=== PATIENT | female | born 1940 | race Caucasian/White ===

== ENCOUNTER 2023-10-23 12:57 | Emergency (ER) | payer MEDICARE, OTHER, SELFPAY ==
[2023-10-23 13:05] VITALS: BP 115/52; PULSE 71; RESP 18; TEMP 36.5; O2SAT 97; BMI 18.8
--- NOTE | 2023-10-23 14:31 | ED_ITS ---
HPI - General Adult General Chief complaint: Altered Mental Status Stated complaint: UTI Time Seen by Provider: 10/23/23 14:20 Source: family Mode of arrival: walk-in Limitations: no limitations History of Present Illness HPI narrative: 83-year-old female presents for possible UTI. She has dementia but was a bit more confused than typical and her daughter was concerned about a UTI. The patient is not able to give any history, she has dementia. Symptoms started within the last day but she was also started on Seroquel 2 days ago. No fever or unusual back pain. No vomiting. Related Data Allergies Allergy/AdvReac Type Severity Reaction Status Date / Time No Known Drug Allergies Allergy Verified 10/23/23 13:05 Review of Systems ROS Narrative Not obtainable, dementia PFSH PFSH Social History Smoking status: Never smoker Exam Narrative Exam Narrative: Nurses note and vital signs reviewed and patient is not hypoxic. General: The patient appears well and in no apparent distress. Patient is resting comfortably on cart. Skin: Warm, dry, no pallor noted. There is no rash noted. Head: Normocephalic, atraumatic Eye: Normal conjunctiva, no drainage Ears, Nose, Mouth, and Throat: oral mucosa is moist. Nares patent. Cardiovascular: Regular Rate and Rhythm Respiratory: Patient is in no distress, no accessory muscle use, lungs are clear to auscultation, no wheezing, rales or rhonchi Back: non-tender, no CVA tenderness bilaterally to percussion. GI: Soft and nontender Musculoskeletal: The patient has no evidence of calf tenderness, no pitting edema, symmetrical pulses noted bilaterally Neurological: Awake and alert Psychiatric: Cooperative Constitutional Vital Signs, click to edit/add: Last Vital Signs Temp 97.7 F 10/23/23 13:05 Pulse 71 10/23/23 13:05 Resp 18 10/23/23 13:05 BP 115/52 10/23/23 13:05 Pulse Ox 97 10/23/23 13:05 O2 Del Method Room Air 10/23/23 13:05 Course Vital Signs Vital signs: Vital Signs Temperature 97.7 F 10/23/23 13:05 Pulse Rate 71 10/23/23 13:05 Respiratory Rate 18 10/23/23 13:05 Blood Pressure 115/52 10/23/23 13:05 Pulse Oximetry 97 10/23/23 13:05 Oxygen Delivery Method Room Air 10/23/23 13:05 Temperature 97.7 F 10/23/23 13:05 Pulse Rate 71 10/23/23 13:05 Respiratory Rate 18 10/23/23 13:05 Blood Pressure 115/52 10/23/23 13:05 Pulse Oximetry 97 10/23/23 13:05 Oxygen Delivery Method Room Air 10/23/23 13:05 Medical Decision Making MDM Narrative Medical decision making narrative: She does not have a urinary tract infection. The rest of her workup including chest x-ray and blood work is negative as well. The possibility that this is a side effect of the new medication for her, Seroquel, was discussed. She does not require admission of the hospital but they will follow-up in PCPs office if symptoms persist. Treatment diagnosis and follow-up were discussed with the patient and her daughter Differential Diagnosis Differential Diagnosis: UTI, pneumonia, medication side effect Lab Data Lab results reviewed: Yes I reviewed the patient's lab results Labs: Lab Results 10/23/23 10/23/23 Range/Units 14:32 15:25 WBC 6.2 (4.0-11.0) 10^3/uL RBC 4.36 (4.20-5.40) 10^6/uL Hgb 13.6 (12.0-16.0) g/dL Hct 41.5 (36.0-48.0) % MCV 95.2 (81.0-99.0) fL MCH 31.2 (26.7-34.0) pg MCHC 32.8 (29.9-35.2) g/dL RDW 13.1 (11.0-15.0) % Plt Count 238 (150-450) 10^3/uL MPV 9.3 L (9.5-13.5) fL Neut % (Auto) 64.3 (43.0-75.0) % Lymph % (Auto) 20.0 L (20.5-60.0) % [place] % (Auto) 10.6 (1.7-12.0) % Eos % (Auto) 3.9 (0.9-7.0) % Baso % (Auto) 1.0 (0.2-2.0) % Neut # (Auto) 4.0 (1.4-6.5) 10^3/uL Lymph # (Auto) 1.2 (1.2-3.8) 10^3/uL [place] # (Auto) 0.7 (0.3-0.8) 10^3/uL Eos # (Auto) 0.2 (0.0-0.7) 10^3/uL Baso # (Auto) 0.1 (0.0-0.1) 10^3/uL Abs Immat Gran (auto) 0.01 (0.00-0.03) 10^3/uL Imm/Tot Granulo (auto) 0.2 (0.0-0.5) % Sodium 140 (136-145) mmol/L Potassium 4.7 (3.5-5.1) mmol/L Chloride 103 (98-107) mmol/L Carbon Dioxide 33.6 H (21.0-32.0) mmol/L Anion Gap 8.1 BUN 16.0 (7.0-18.0) mg/dL Creatinine 1.24 H (0.55-1.02) mg/dL Est GFR ( Amer) 50 L (>=60) Est GFR (Non-Af Amer) 42 L (>=60) BUN/Creatinine Ratio 12.9 Glucose 82 (74-106) mg/dL Calcium 9.3 (8.5-10.1) mg/dL Urine Color Lt. yellow (YELLOW) Urine Clarity Clear (CLEAR) Urine pH 7.0 (5.0-9.0) Ur Specific [place] 1.015 (1.005-1.025) Urine Protein Negative (NEG/TRACE) mg/dL Urine Glucose (UA) Negative (NEGATIVE) mg/dL Urine Ketones Negative (NEGATIVE) mg/dL Urine Occult Blood Negative (NEGATIVE) Urine Nitrite Negative (NEGATIVE) Urine Bilirubin Negative (NEGATIVE) Urine Urobilinogen 0.2 (0.2-1.0) EU/dL Ur Leukocyte Esterase Trace A (NEGATIVE) Urine RBC 0-2 (0-2) #/HPF Urine WBC 2-5 A (NONE SEEN) #/HPF Ur Squamous Epith Cells Rare (NONE/RARE) #/LPF Urine Crystals None seen (None Seen) #/HPF Urine Bacteria None seen (NONE SEEN) #/HPF Urine Casts None seen (NONE SEEN) #/LPF Urine Mucus None seen (NONE SEEN) Ur Culture Indicated? No Imaging Data Chest x-ray: Radiologist's impression: ITS Impressions Chest X-Ray 10/23/23 15:15 IMPRESSION: No acute cardiopulmonary process. Electronically authenticated by: JHONATAN ESPINO Date: 10/23/2023 15:57 Discharge Plan Discharge Chief Complaint: Altered Mental Status Clinical Impression: Confusion Patient Disposition: Home, Self-Care Time of Disposition Decision: 16:07 Condition: Good Mode of Transportation: Private Vehicle Instructions: Altered Mental Status (ED) Stand Alone Forms: Portal Instructions Referrals: CHASTITY RODRIGUEZ [Primary Care Provider] - 1 week
[2023-10-23 14:38] LABS: Bilirubin Urine NEGATIVE (NEGATIVE); Blood Urine NEGATIVE (NEGATIVE); Clarity Urine CLEAR (CLEAR); Color Urine LT. YELLOW (YELLOW); Glucose Urine UA NEGATIVE (NEGATIVE); Ketones Urine NEGATIVE (NEGATIVE); Leukocyte Esterase Urine TRACE (NEGATIVE); Nitrite Urine NEGATIVE (NEGATIVE); Protein Urine NEGATIVE (NEG/TRACE); Specific Gravity Urine 1.015 (1.005-1.025); Urobilinogen Urine 0.2 EU/dL (0.2-1.0)
[2023-10-23 14:40] LABS: Urine Microscopic Indicated YES
[2023-10-23 15:01] LABS: Bacteria Urine NONE SEEN #/HPF (NONE SEEN); Crystals Seen? None Seen #/HPF (None Seen); Mucus Urine NONE SEEN (NONE SEEN); RBC Urine 0-2 #/HPF (0-2); Squamous Epithelial Cell Urine RARE #/LPF (NONE/RARE)
[2023-10-23 15:02] LABS: Cast Seen? NONE SEEN #/LPF (NONE SEEN); Urine Culture Indicated NO
--- NOTE | 2023-10-23 15:15 | XR_ITS ---
The [address] [address] Patient Name: SAM TOBAR MRN: [id number] date: 1940 Sex: F Assigned Patient Location: ER Current Patient Location: ER Accession/Order Number: [id number] Exam Date: 10/23/2023 15:20 Report Date: 10/23/2023 15:57 At the request of: DERRICK WELLS Procedure: XR chest 1V EXAM: XR chest 1V INDICATION: Increased confusion. COMPARISON: Chest radiograph 06/11/2021. TECHNIQUE: Single frontal view of the chest FINDINGS: Normal cardiomediastinal contours. No focal consolidation. Stable left lung base calcified granuloma. No pleural effusion or pneumothorax. No acute osseous abnormality. XR/XR chest 1V IMPRESSION: No acute cardiopulmonary process. Electronically authenticated by: JHONATAN ESPINO Date: 10/23/2023 15:57
[2023-10-23 15:31] LABS: Basophils Absolute Auto 0.1 10^3/uL (0.0-0.1); Eosinophils Absolute Auto 0.2 10^3/uL (0.0-0.7); Eosinophils Percent Auto 3.9 % (0.9-7.0); Hematocrit 41.5 % (36.0-48.0); Hemoglobin 13.6 g/dL (12.0-16.0); Immature Granulocytes Abs Auto 0.01 10^3/uL (0.00-0.03); Immature Granulocytes Pct Auto 0.2 % (0.0-0.5); Lymphocytes Absolute Auto 1.2 10^3/uL (1.2-3.8); Mean Corpuscular HGB Conc 32.8 g/dL (29.9-35.2); Mean Corpuscular Hemoglobin 31.2 pg (26.7-34.0); Mean Corpuscular Volume 95.2 fL (81.0-99.0); Mean Platelet Volume 9.3 fL (9.5-13.5); Monocytes Absolute Auto 0.7 10^3/uL (0.3-0.8); Monocytes Percent Auto 10.6 % (1.7-12.0); Neutrophils Percent Auto 64.3 % (43.0-75.0); Platelet Count 238 10^3/uL (150-450); Red Blood Count 4.36 10^6/uL (4.20-5.40); Red Cell Distribution Width 13.1 % (11.0-15.0); White Blood Count 6.2 10^3/uL (4.0-11.0)
[2023-10-23 15:39] LABS: Anion Gap 8.1; BUN Creatinine Ratio 12.9; Calcium 9.3 mg/dL (8.5-10.1); Carbon Dioxide 33.6 mmol/L (21.0-32.0); Chloride 103 mmol/L (98-107); Estimated GFR (African America 50 (>=60); Estimated GFR (Non-African Ame 42 (>=60); Glucose 82 mg/dL (74-106); Potassium 4.7 mmol/L (3.5-5.1); Sodium 140 mmol/L (136-145)
== END 2023-10-23 16:15 | disposition home or self-care (01) ==
PROVIDERS: Emergency Provider Emergency Medicine; PCP Family Medicine
DX: R41.0 Disorientation, unspecified (principal); F03.90 Unspecified dementia, unspecified severity, without behavioral disturbance, psychotic disturbance, mood disturbance, and anxiety; Z79.899 Other long term (current) drug therapy
CPT/HCPCS: 36415; 71045; 80048; 81001; 85025; 99284

== ENCOUNTER 2023-10-31 17:10 | Inpatient (IN) | payer MEDICARE, OTHER, SELFPAY ==
[2023-10-31] VITALS (10 sets, daily range): BP systolic 129–157; BP diastolic 67–72; PULSE 85–90; RESP 16–26; TEMP 36.9–37.1; O2SAT 93–97; BMI 18.8; BMI 19.1
--- NOTE | 2023-10-31 17:20 | ECG_ITS ---
[facility] Test Date: 2023-10-31 Pat Name: SAM TOBAR Department: Room: [facility] Gender: Female [employer] Salesperson: : 1940 Requested By: [id number] Order Number: [id number] Reading MD: TATA OSORIO Measurements Intervals [place] Rate: 86 P: 79 TX: 156 QRS: 69 QRSD: 72 T: 66 QT: 352 QTc: 395 Interpretive Statements 1100 Sinus rhythm 4068 Nonspecific [place] abnormality 9130 borderline ECG Compared to ECG 06/11/2021 21:11:00 No significant changes Electronically Signed On 11-01-2023 6:42:58 EST by TATA OSORIO
--- OUTSIDE RECORDS SUMMARY | 2023-10-31 17:20 | XMS_ITS | CCD ---
Author Name Unknown Address [address] [facility] [address] [place] [id number] Organization [facility] Care Team Providers Care Cashier Assistant Name Role Phone JENNIFER, DR HAYWOOD Admitting Unavailable JENNIFER, DR HAYWOOD Consulting Unavailable JENNIFER, DR HAYWOOD Attending Unavailable SABAS, DR ALMA ROSA Horta Primary Care Unavailable SABAS, DR ALMA ROSA Horta Consulting Unavailable SABAS, DR ALMA ROSA Horta Attending Unavailable SABAS, DR ALMA ROSA Horta Admitting Unavailable SABAS, DR ALMA ROSA Horta Primary Care Unavailable JUDY PILLAI Attending Unavailable JUDY PILLAI Attending Unavailable CHASTITY RODRIGUEZ Attending Unavailable Allergies Allergy Classification Reported Allergen(s) Allergy Type Date of Onset Reaction(s) Facility (1 source) donepezil Drug Allergy [facility] (1 source) Penicillins Drug allergy (disorder) 06-09-2013 [facility] (1 source) Sulfonamides (Antibiotic) Drug allergy (disorder) 06-09-2013 [facility] Problems Active Problems Problem Classification Problem Date Documented Date Episodic/Chronic Disorders of lipid metabolism (1 source) Pure hypercholesterolemia, unspecified; Translations: [PURE HYPERCHOLESTEROLEMIA UNSPEC] Onset: 3 Chronic Nutritional deficiencies (6 sources) Vitamin D deficiency, unspecified; Translations: [Moderate protein-calorie malnutrition] Onset: 2 Chronic Thyroid disorders (4 sources) Hypothyroidism, unspecified; Translations: [HYPOTHYROIDISM UNSPECIFIED] Onset: 3 Chronic Past or Other Problems Problem Classification Problem Date Documented Da te Episodic/Chronic Pancreatic disorders (not diabetes) (1 source) Acute pancreatitis without necrosis or infection, unspecified; Translations: [ACUTE PANCREATITIS WO NECRS/INF UNS] Onset: 11-24-2021 Episodic Results Test Name Value Interpretation Reference Range Facil ity CBC AUTO DIFFon 09-29-2022 BASO # 0.0 103/ul Normal 0.0-0.1 [facility] Comment on above: Performed By: #### C BC #### [facility] [address] [place] [address] Dr. Naheed Hernandes Basophils/100 WBC (Bld) 0.7 % Normal 0.2-2.0 [facility] Comment on above: Performed By: #### C BC #### [facility] [address] [place] [address] Dr. Naheed Hernandes EO # 0.1 103/ul Normal 0.0-0.7 [facility] Comment on above: Performed By: #### C BC #### [facility] [address] [place] [address] Dr. Naheed Hernandes Eosinophils/100 WBC (Bld) 2.2 % Normal 0.9-7.0 [facility] Comment on above: Performed By: #### C BC #### [facility] [address] [place] [address] Dr. Naheed Hernandes Erythrocyte distribution width (RBC) [Ratio] 13.2 % Normal 11.0-15.0 [facility] Comment on above: Performed By: #### C BC #### [facility] [address] [place] [address] Dr. Naheed Hernandes Hematocrit (Bld) [Volume fraction] 43.2 % Normal 36.0-48.0 [facility] Comment on above: Performed By: #### C BC #### [facility] [address] [place] [address] Dr. Naheed Hernandes Hemoglobin (Bld) [Mass/Vol] 14.0 g/dL Normal 12.0-16.0 [facility] Comment on above: Performed By: #### C BC #### [facility] [address] [place] [address] Dr. Naheed Hernandes IG # 0.01 10e3/ul Normal 0.00-0.03 [facility] Comment on above: Performed By: #### C BC #### [facility] [address] [place] [address] Dr. Naheed Hernandes IG % 0.2 % Normal 0.0-0.5 [facility] Comment on above: Performed By: #### C BC #### [facility] [address] [place] [address] Dr. Naheed Hernandes LYMPH # 1.0 103/ul Critically low 1.2-3.8 [facility] Comment on above: Performed By: #### C BC #### [facility] [address] [place] [address] Dr. Naheed Hernandes Lymphocytes/100 WBC (Bld) 17.4 % Critically low 20.5-60.0 [facility] Comment on above: Performed By: #### C BC #### [facility] [address] [place] [address] Dr. Naheed Hernandes MANUAL DIFF REQ NO Normal [facility] Comment on above: Performed By: #### C BC #### [facility] [address] [place] [address] Dr. Naheed Hernandes MCH (RBC) [Entitic mass] 30.0 pg Normal 26.7-34.0 [facility] Comment on above: Performed By: #### C BC #### [facility] [address] [place] [address] Dr. Naheed Hernandes MCHC (RBC) [Mass/Vol] 32.4 g/dL Normal 29.9-35.2 [facility] Comment on above: Performed By: #### C BC #### [facility] [address] [place] [address] Dr. Naheed Hernandes MCV (RBC) [Entitic vol] 92.7 fL Normal 81.0-99.0 [facility] Comment on above: Performed By: #### C BC #### [facility] [address] [place] [address] Dr. Naheed Hernandes MONO # 0.5 103/ul Normal 0.3-0.8 [facility] Comment on above: Performed By: #### C BC #### [facility] [address] [place] [address] Dr. Naheed Hernandes Monocytes/100 WBC (Bld) 8.5 % Normal 1.7-12.0 [facility] Comment on above: Performed By: #### C BC #### [facility] [address] [place] [address] Dr. Naheed Hernandes NEUT # 4.2 103/ul Normal 1.4-6.5 [facility] Comment on above: Performed By: #### C BC #### [facility] [address] [place] [address] Dr. Naheed Hernandes Neutrophils/100 WBC (Bld) 71.0 % Normal 43.0-75.0 [facility] Comment on above: Performed By: #### C BC #### [facility] [address] [place] [address] Dr. Naheed Hernandes Platelet mean volume (Bld) [Entitic vol] 9.3 fL Critically low 9.5-13.5 [facility] Comment on above: Performed By: #### C BC #### [facility] [address] [place] [address] Dr. Naheed Hernandes PLT 242 103/ul Normal 150-450 [facility] Comment on above: Performed By: #### C BC #### [facility] [address] [place] [address] Dr. Naheed Hernandes RBC 4.66 106/ul Normal 4.20-5.40 [facility] Comment on above: Performed By: #### C BC #### [facility] [address] [place] [address] Dr. Naheed Hernandes WBC 5.9 103/ul Normal 4.0-11.0 [facility] Comment on above: Performed By: #### C BC #### [facility] [address] [place] [address] Dr. Naheed Hernandes FREE T3on 09-29-2022 FREE T3 2.15 pg/mlL Critically low 2.18-3.[address] [facility] Comment on above: Performed By: #### L IPID, TSH, FT3, CMP #### [facility] [address] [place] [address] Dr. Naheed Hernandes FREE T4on 09-29-2022 Free T4 [Mass/Vol] 1.28 ng/dL Normal 0.76-1.46 [facility] Comment on above: Performed By: #### F T4, VITAD #### [facility] [address] [place] [address] Dr. Naheed Hernandes LIPID PROFILEon 09-29-2022 CHOL-HDL RATIO NORM SEE BELOW Normal [facility] Comment on above: Result Comment: 3.3 - 4.4 LOW RISK 4.4 - 7.1 AVERAGE RISK 7.1 - 11.0 MODERATE RISK >11.0 HIGH RISK Performed By: #### L IPID, TSH, FT3, CMP #### [facility] [address] [place] [address] Dr. Naheed Hernandes Cholesterol [Mass/Vol] 186 mg/dL Normal <=200 [facility] Comment on above: Performed By: #### L IPID, TSH, FT3, CMP #### [facility] [address] [place] [address] Dr. Naheed Hernandes Cholesterol in HDL [Mass/Vol] 70 mg/dL Critically high 40-60 [facility] Comment on above: Performed By: #### L IPID, TSH, FT3, CMP #### [facility] [address] [place] [address] Dr. Naheed Hernandes Cholesterol in LDL [Mass/Vol] 98.8 mg/dL Normal [facility] Comment on above: Performed By: #### L IPID, TSH, FT3, CMP #### [facility] [address] [place] [address] Dr. Naheed Hernandes Cholesterol.total/ Cholesterol in HDL [Mass ratio] 2.7 {ratio} Normal [facility] Comment on above: Performed By: #### L IPID, TSH, FT3, CMP #### [facility] [address] [place] [address] Dr. Naheed Hernandes HDL NORMAL > or = 60 mg/dl - LO W CARDIOVASCULAR RISK <40 mg/dl - HIGH CARDIOVASCULAR RISK Normal [facility] Comment on above: Performed By: #### L IPID, TSH, FT3, CMP #### [facility] [address] [place] [address] Dr. Naheed Hernandes LDL CALC NORMAL SEE BELOW Normal [facility] Comment on above: Result Comment: <100 mg/dl OPTIMAL 100 - 129 mg/dl NEAR OR ABOVE OPTIMAL 130 - 159 mg/dl BORDERLINE HIGH 160 - 189 mg/dl HIGH >190 mg/dl VERY HIGH Performed By: #### L IPID, TSH, FT3, CMP #### [facility] [address] [address] [address] Naheed Hernandes Triglyceride [Mass/Vol] 86 mg/dL Normal <=150 [facility] Comment on above: Performed By: #### L IPID, TSH, FT3, CMP #### [facility] [address] [address] [address] Naheed Hernandes VLDL CALC 17.2 mg/dL Normal [facility] Comment on above: Performed By: #### L IPID, TSH, FT3, CMP #### [facility] [address] [address] [address] Naheed Hernandes PROF 14(COMP METB)on 023 Albumin [Mass/Vol] 3.7 g/dL Normal 3.4-5.0 [facility] Comment on above: Performed By: #### L IPID, TSH, FT3, CMP #### [facility] [address] [address] [address] Naheed Hernandes Albumin/Globulin [Mass ratio] 1.1 {ratio} Normal [facility] Comment on above: Performed By: #### L IPID, TSH, FT3, CMP #### [facility] [address] [address] [address] Naheed Hernandes ALP [Catalytic activity/Vol] 90 U/L Normal 46-116 [facility] Comment on above: Performed By: #### L IPID, TSH, FT3, CMP #### [facility] [address] [address] [address] Naheed Hernandes ALT [Catalytic activity/Vol] 14 U/L Normal 14-59 [facility] Comment on above: Performed By: #### L IPID, TSH, FT3, CMP #### [facility] [address] [address] [address] Naheed Hernandes Anion gap [Moles/Vol] 7.6 mmol/L Normal [facility] Comment on above: Performed By: #### L IPID, TSH, FT3, CMP #### [facility] [address] [place] [address] Dr. Naheed Hernandes AST [Catalytic activity/Vol] 25 U/L Normal 15-37 [facility] Comment on above: Performed By: #### L IPID, TSH, FT3, CMP #### [facility] [address] [place] [address] Dr. Naheed Hernandes Bilirubin [Mass/Vol] 1.4 mg/dL Critically high 0.2-1.0 [facility] Comment on above: Performed By: #### L IPID, TSH, FT3, CMP #### [facility] [address] [place] [address] Dr. Naheed Hernandes Calcium [Mass/Vol] 9.0 mg/dL Normal 8.5-10.1 [facility] Comment on above: Performed By: #### L IPID, TSH, FT3, CMP #### [facility] [address] [place] [address] Dr. Naheed Hernandes Chloride [Moles/Vol] 103 mmol/L Normal 98-107 [facility] Comment on above: Performed By: #### L IPID, TSH, FT3, CMP #### [facility] [address] [place] [address] Dr. Naheed Hernandes CO2 [Moles/Vol] 32.2 mmol/L Critically high 21.0-32.0 [facility] Comment on above: Performed By: #### L IPID, TSH, FT3, CMP #### [facility] [address] [place] [address] Dr. Naheed Hernandes Creatinine [Mass/Vol] 1.05 mg/dL Critically high 0.55-1.02 [facility] Comment on above: Performed By: #### L IPID, TSH, FT3, CMP #### [facility] [address] [place] [address] Dr. Naheed Hernandes EGFR-AF TURKISH >60 Normal >=60 [facility] Comment on above: Performed By: #### L IPID, TSH, FT3, CMP #### [facility] [address] [place] [address] Dr. Naheed Hernandes EGFR-NON AF TURKISH 50 mL/min/1.73m2 Critically low >=60 [facility] Comment on above: Performed By: #### L IPID, TSH, FT3, CMP #### [facility] [address] [address] [address] Naheed Hernandes Globulin (S) [Mass/Vol] 3.4 g/dL Normal [facility] Comment on above: Performed By: #### L IPID, TSH, FT3, CMP #### [facility] [address] [place] [address] Dr. Naheed Hernandes Glucose [Mass/Vol] 85 mg/dL Normal 74-106 [facility] Comment on above: Performed By: #### L IPID, TSH, FT3, CMP #### [facility] [address] [place] [address] Dr. Naheed Hernandes Potassium [Moles/Vol] 3.8 mmol/L Normal 3.5-5.1 [facility] Comment on above: Performed By: #### L IPID, TSH, FT3, CMP #### [facility] [address] [place] [address] Dr. Naheed Hernandes Protein [Mass/Vol] 7.1 g/dL Normal 6.4-8.2 [facility] Comment on above: Performed By: #### L IPID, TSH, FT3, CMP #### [facility] [address] [place] [address] Dr. Naheed Hernandes Sodium [Moles/Vol] 139 mmol/L Normal 136-145 [facility] Comment on above: Performed By: #### L IPID, TSH, FT3, CMP #### [facility] [address] [place] [address] Dr. Naheed Hernandes Urea nitrogen [Mass/Vol] 16.0 mg/dL Normal 7.0-18.0 [facility] Comment on above: Performed By: #### L IPID, TSH, FT3, CMP #### [facility] [address] [place] [address] Dr. Naheed Hernandes Urea nitrogen/Creatinin e [Mass ratio] 15.2 mg/mg Normal [facility] Comment on above: Performed By: #### L IPID, TSH, FT3, CMP #### [facility] [address] [place] [address] Dr. Naheed Hernandes TSHon 09-29-2022 TSH 1.283 uIU/mL Normal 0.358-3.740 [facility] Comment on above: Performed By: #### L IPID, TSH, FT3, CMP #### [facility] [address] [place] [address] Dr. Naheed Hernandes VITAMIN D 25 OHon 09-29-2022 VIT D 25-OH 78.0 ng/mL Normal [facility] Comment on above: Performed By: #### F T4, VITAD #### [facility] [address] [place] [address] Dr. Naheed Hernandes VIT D RANGES SEE BELOW Normal [facility] Comment on above: Result Comment: <20 ng/mL Vit D deficient 20 - <30 ng/mL Vit D insufficient 30 - 100 ng/mL Vit D sufficient >100 ng/mL Potential Toxicity Performed By: #### F T4, VITAD #### [facility] [address] [place] [address] Dr. Naheed Hernandes CBC AUTO DIFFon 11-20-2021 BASO # 0.0 103/ul Normal 0.0-0.1 [facility] Comment on above: Performed By: #### C BC #### [facility] [address] [place] [address] Dr. Naheed Hernandes Basophils/100 WBC (Bld) 0.6 % Normal 0.2-2.0 [facility] Comment on above: Performed By: #### C BC #### [facility] [address] [place] [address] Dr. Naheed Hernandes EO # 0.1 103/ul Normal 0.0-0.7 [facility] Comment on above: Performed By: #### C BC #### [facility] [address] [place] [address] Dr. Naheed Hernandes Eosinophils/100 WBC (Bld) 1.9 % Normal 0.9-7.0 [facility] Comment on above: Performed By: #### C BC #### [facility] [address] [place] [address] Dr. Naheed Hernandes Erythrocyte distribution width (RBC) [Ratio] 13.3 % Normal 11.0-15.0 [facility] Comment on above: Performed By: #### C BC #### [facility] [address] [place] [address] Dr. Naheed Hernandes Hematocrit (Bld) [Volume fraction] 43.7 % Normal 36.0-48.0 [facility] Comment on above: Performed By: #### C BC #### [facility] [address] [place] [address] Dr. Naheed Hernandes Hemoglobin (Bld) [Mass/Vol] 14.2 g/dL Normal 12.0-16.0 [facility] Comment on above: Performed By: #### C BC #### [facility] [address] [place] [address] Dr. Naheed Hernandes IG # 0.01 10e3/ul Normal 0.00-0.03 [facility] Comment on above: Performed By: #### C BC #### [facility] [address] [place] [address] Dr. Naheed Hernandes IG % 0.1 % Normal 0.0-0.5 [facility] Comment on above: Performed By: #### C BC #### [facility] [address] [place] [address] Dr. Naheed Hernandes LYMPH # 1.6 103/ul Normal 1.2-3.8 [facility] Comment on above: Performed By: #### C BC #### [facility] [address] [place] [address] Dr. Naheed Hernandes Lymphocytes/100 WBC (Bld) 23.1 % Normal 20.5-60.0 [facility] Comment on above: Performed By: #### C BC #### [facility] [address] [place] [address] Dr. Naheed Hernandes MANUAL DIFF REQ NO Normal [facility] Comment on above: Performed By: #### C BC #### [facility] [address] [place] [address] Dr. Naheed Hernandes MCH (RBC) [Entitic mass] 30.4 pg Normal 26.7-34.0 [facility] Comment on above: Performed By: #### C BC #### [facility] [address] [place] [address] Dr. Naheed Hernandes MCHC (RBC) [Mass/Vol] 32.5 g/dL Normal 29.9-35.2 [facility] Comment on above: Performed By: #### C BC #### [facility] [address] [place] [address] Dr. Naheed Hernandes MCV (RBC) [Entitic vol] 93.6 fL Normal 81.0-99.0 [facility] Comment on above: Performed By: #### C BC #### [facility] [address] [place] [address] Dr. Naheed Hernandes MONO # 0.7 103/ul Normal 0.3-0.8 [facility] Comment on above: Performed By: #### C BC #### [facility] [address] [place] [address] Dr. Naheed Hernandes Monocytes/100 WBC (Bld) 10.2 % Normal 1.7-12.0 [facility] Comment on above: Performed By: #### C BC #### [facility] [address] [place] [address] Dr. Naheed Hernandes NEUT # 4.4 103/ul Normal 1.4-6.5 [facility] Comment on above: Performed By: #### C BC #### [facility] [address] [place] [address] Dr. Naheed Hernandes Neutrophils/100 WBC (Bld) 64.1 % Normal 43.0-75.0 [facility] Comment on above: Performed By: #### C BC #### [facility] [address] [place] [address] Dr. Naheed Hernandes Platelet mean volume (Bld) [Entitic vol] 9.2 fL Critically low 9.5-13.5 [facility] Comment on above: Performed By: #### C BC #### [facility] [address] [place] [address] Dr. Naheed Hernandes PLT 243 103/ul Normal 150-450 [facility] Comment on above: Performed By: #### C BC #### [facility] [address] [place] [address] Dr. Naheed Hernandes RBC 4.67 106/ul Normal 4.20-5.40 [facility] Comment on above: Performed By: #### C BC #### [facility] [address] [place] [address] Dr. Naheed Hernandes WBC 6.9 103/ul Normal 4.0-11.0 [facility] Comment on above: Performed By: #### C BC #### [facility] [address] [place] [address] Dr. Naheed Hernandes LIPASEon 11-20-2021 Lipase [Catalytic activity/Vol] 138.0 U/L Normal 23.0-300.0 [facility] Comment on above: Performed By: #### L IPA, CMP #### [facility] [address] [place] [address] Dr. Naheed Hernandes PROF 14(COMP METB)on 022 Albumin [Mass/Vol] 3.9 g/dL Normal 3.5-5.0 [facility] Comment on above: Performed By: #### L IPA, CMP #### [facility] [address] [place] [address] Dr. Naheed Hernandes Albumin/Globulin [Mass ratio] 1.1 {ratio} Normal [facility] Comment on above: Performed By: #### L IPA, CMP #### [facility] [address] [place] [address] Dr. Naheed Hernandes ALP [Catalytic activity/Vol] 88 U/L Normal 38-126 [facility] Comment on above: Performed By: #### L IPA, CMP #### [facility] [address] [address] [address] Naheed Hernandes ALT [Catalytic activity/Vol] 13 U/L Normal 9-52 [facility] Comment on above: Performed By: #### L IPA, CMP #### [facility] [address] [address] [address] Naheed Hernandes Anion gap [Moles/Vol] 9.1 mmol/L Normal [facility] Comment on above: Performed By: #### L IPA, CMP #### [facility] [address] [address] [address] Naheed Hernandes AST [Catalytic activity/Vol] 20 U/L Normal 14-36 [facility] Comment on above: Performed By: #### L IPA, CMP #### [facility] [address] [address] [address] Naheed Hernandes Bilirubin [Mass/Vol] 1.0 mg/dL Normal 0.2-1.3 [facility] Comment on above: Performed By: #### L IPA, CMP #### [facility] [address] [address] [address] Naheed Hernandes Calcium [Mass/Vol] 8.7 mg/dL Normal 8.4-10.2 [facility] Comment on above: Performed By: #### L IPA, CMP #### [facility] [address] [address] [address] Naheed Hernandes Chloride [Moles/Vol] 103 mmol/L Normal 98-107 [facility] Comment on above: Performed By: #### L IPA, CMP #### [facility] [address] [address] [address] Naheed Hernandes CO2 [Moles/Vol] 32.6 mmol/L Critically high 22.0-30.0 [facility] Comment on above: Performed By: #### L IPA, CMP #### [facility] [address] [address] [address] Naheed Hernandes Creatinine [Mass/Vol] 1.34 mg/dL Critically high 0.52-1.04 [facility] Comment on above: Performed By: #### L IPA, CMP #### [facility] [address] [address] [address] Naheed Hernandes EGFR-AF TURKISH 46 mL/min/1.73m2 Critically low >=60 [facility] Comment on above: Performed By: #### L IPA, CMP #### [facility] [address] [address] [address] Naheed Hernandes EGFR-NON AF TURKISH 38 mL/min/1.73m2 Critically low >=60 [facility] Comment on above: Performed By: #### L IPA, CMP #### [facility] [address] [address] [address] Naheed Hernandes Globulin (S) [Mass/Vol] 3.7 g/dL Normal [facility] Comment on above: Performed By: #### L IPA, CMP #### [facility] [address] [address] [address] Naheed Hernandes Glucose [Mass/Vol] 109 mg/dL Critically high 74-106 [facility] Comment on above: Performed By: #### L IPA, CMP #### [facility] [address] [address] [address] Naheed Hernandes Potassium [Moles/Vol] 3.7 mmol/L Normal 3.4-5.0 [facility] Comment on above: Performed By: #### L IPA, CMP #### [facility] [address] [address] [address] Naheed Hernandes Protein [Mass/Vol] 7.6 g/dL Normal 6.1-8.2 [facility] Comment on above: Performed By: #### L IPA, CMP #### [facility] [address] [address] [address] Naheed Hernandes Sodium [Moles/Vol] 141 mmol/L Normal 137-145 [facility] Comment on above: Performed By: #### L IPA, CMP #### [facility] [address] [address] [address] Naheed Hernandes Urea nitrogen [Mass/Vol] 20.0 mg/dL Critically high 7.0-17.0 [facility] Comment on above: Performed By: #### L IPA, CMP #### [facility] [address] [place], [place] [address] Dr. Naheed Hernandes Urea nitrogen/Creatinin e [Mass ratio] 14.9 mg/mg Normal [facility] Comment on above: Performed By: #### L IPA, CMP #### [facility] [address] [place], [place] [address] Dr. [facility] [place] SARS-CoV-2 (COVID-19) RNA ANUP+probe Ql (Unsp spec) Negative Normal Negative [facility] Comment on above: Order Comment: Healt hcare Worker?: N Result Comment: Testing for SARS-CoV-2 by RT-PCR This test was developed and its performance characteristics determined by [employer] and validated at the [facility]. This test has not been FDA cleared or approved. This test has been authorized by FDA under an Emergency Use Authorization (EUA). This test has been validated in accordance with the FDA's Guidance Document (Policy for Diagnostics Testing in Laboratories Certified to Perform High Complexity Testing under CLIA prior to Emergency Use Authorization for Coronavirus Disease-2019 during the Public Health Emergency) issued on December 20, 2019. This test is only authorized for the duration of time the declaration that circumstances exist justifying the authorization of the emergency use of in vitro diagnostic tests for detection of SARS-CoV-2 virus and/or diagnosis of COVID-19 infection under section 564(b)(1) of the Act, 21 U.S.C. 360bbb-3(b)(1), unless the authorization is terminated or revoked sooner. PERFORMED BY: [place] [address] PATHOLOGIST DRILLING CONTRACTOR PETAR ARTEAGA M.D. Performed By: #### C OVID 19 [facility] [place] #### [place] [id number] [facility] Encounters Encounter Date Encounter Type Care Provider Facility Start: 08-22-2023 End: 08-22-2023 ambulatory CHASTITY RODRIGUEZ Not Available Start: 01-21-2023 ambulatory JUDY L FREYA Facility: [facility] [place] Start: 11-26-2022 ambulatory JUDY Lorin FREYA Facility: [facility] [place] Start: 09-29-2022 End: 09-30-[address] ALMA ROSA OBREGON Facility: Start: 11-20-2021 End: 11-21-[address] CHASTITY RODRIGUEZ Facility:[facility] Payers Date Payer Category Payer Medicare [id number] 1957 Medicare [id number] 1957 Unknown [id number] 1940 Unknown [id number] 1940 Unknown [id number] 1940 Unknown [id number] [id number] 1940 Unknown [id number] 2.16.8 [id number] 1940 Unknown [id number] Summary Purpose Family History No Family History Records FoundNo Family History Records FoundNo Family History Records FoundNo Family History Records Found Advance Directives No Advanced Directives Records FoundNo Advanced Directives Records FoundNo Advanced Directives Records FoundNo Advanced Directives Records Found Additional Source Comments INFORMATION SOURCE (unrecogn ized section and content) DATE CREATED AUTHOR 10/13/2021 [facility] DATE CREATED AUTHOR AUTHOR'S ORGANIZ ATION 10/02/2022 [facility] [place] [facility] DATE CREATED AUTHOR AUTHOR'S ORGANIZ ATION 11/27/2022 [facility] DATE CREATED AUTHOR AUTHOR'S ORGANIZ ATION 08/24/2023 [facility] EPIC FOR RECORDS PERTAINING TO PATIENTS WHO ARE OR HAVE BEEN ENROLLED IN A CHEMICAL DEPENDENCY/SUBSTANCEABUSE PROGRAM, SOME INFORMATION MAY BE OMITTED. This clinical summary was aggregated from multiple sources. Caution should be exercised in using it in the provision of clinical care. This summary normalizes information from multiple sources, and as a consequence, information in this document may materially change the coding, format and clinical context of patient data. In addition, data may be omitted in some cases. CLINICAL DECISIONS SHOULD BE BASED ON THE PRIMARY CLINICAL RECORDS. [facility] [employer] [facility]. provides no warranty or guarantee of the accuracy or completeness of information in this document.
--- NOTE | 2023-10-31 17:30 | ED_ITS ---
HPI - Fall General Chief Complaint: Fall Stated Complaint: FALL Time Seen by Provider: 10/31/23 17:15 Source: patient and family Mode of arrival: Wheelchair Limitations: altered mental status and physical limitation History of Present Illness HPI Narrative: 83 year old female presents to the ED with right shoulder and right hip pain. There is concern for an unwitnessed fall today; she lives at home with family. T he patient has hx dementia and is a poor historian. Pt has bruising to her right shoulder area. She does not take an anticoagulant. Pt denies pain to her head, neck, back, chest, abdomen. Denies dizziness, nausea. Rates her pain 8/10 with movement. Related Data Home Medications Medication Instructions Recorded Confirmed levothyroxine 25 mcg tablet 25 mcg PO DAILY 10/31/23 10/31/23 oxybutynin chloride 5 mg 5 mg PO DAILY 10/31/23 10/31/23 tablet,extended release 24 hr oxycodone-acetaminophen 5 mg-325 1 tab PO Q8H 10/31/23 10/31/23 mg tablet paroxetine HCl 10 mg tablet 10 mg PO DAILY 10/31/23 10/31/23 Allergies Allergy/AdvReac Type Severity Reaction Status Date / Time Penicillins AdvReac Mild Verified 10/31/23 17:26 Review of Systems ROS Constitutional Denies: fever or chills Ears, nose, mouth, and throat Denies: neck pain Cardiovascular Denies: chest pain Respiratory Denies: shortness of breath Gastrointestinal Denies: abdominal pain, nausea or vomiting Musculoskeletal Reports: extremity pain; Denies: back pain or neck pain Integumentary/Breast Reports: skin tenderness and changes in skin color; Denies: rash, itching or redness Neurological Denies: headache, numbness in extremities, weakness in extremities or dizziness PFSH PFSH Social History Smoking status: Never smoker Exam Constitutional Vital Signs, click to edit/add: Last Vital Signs Temp 98.5 F 10/31/23 17:27 Pulse 88 10/31/23 19:00 Resp 22 10/31/23 19:00 BP 129/72 10/31/23 18:51 Pulse Ox 95 10/31/23 18:04 O2 Del Method Room Air 10/31/23 17:27 Common normals: no apparent distress and alert General appearance: cooperative HENRI Common normals: normocephalic and head/scalp atraumatic Face and sinus: normal facial exam Nose: external nose normal External ear: external ears normal Mouth: oral and palatal mucosa normal, lip normal and tongue normal Eye Common normals: PERRL, conjunctivae normal and no scleral icterus Neck & C-Spine Common normals: supple General: trachea midline Cervical spine: no cervical spine tenderness and no paracervical muscle tenderness Chest Common normals: palpation of chest normal Chest: symmetrical chest wall rise Respiratory Common normals: normal respiratory effort Effort & inspection: able to speak in complete sentences and symmetric chest movement Cardio Common normals: regular rate and regular rhythm Peripheral pulses: radial pulses present, posterior tibial pulses present and dorsalis pedis pulses present GI Common normals: soft to palpation and non-tender Back & Pelvis Thoracic spine/upper back: normal to inspection; no thoracic spinal tenderness and no paraspinal muscle tenderness Lumbar spine/lower back: normal to inspection; no lumbar spinal tenderness and no paraspinal muscle tenderness Extremity Other: Right hip area tender on palpation. Right leg appears shorter. Decreased ROM to right hip. Bruising to right anterior shoulder area. Decreased ROM to right shoulder due to pain. No obvious deformity. Area is tender on palpation. Denies tenderness to right elbow, knees, ankles. Neuro Sensorium/orientation: awake, alert and other (Pt confused; hx dementia. At baseline per daughter. ) Speech: speech normal Course Vital Signs Vital signs: Vital Signs Temperature 98.5 F 10/31/23 17:27 Pulse Rate 88 10/31/23 17:27 Respiratory Rate 16 10/31/23 17:27 Blood Pressure 157/70 H 10/31/23 17:27 Pulse Oximetry 97 10/31/23 17:27 Oxygen Delivery Method Room Air 10/31/23 17:27 Temperature 98.5 F 10/31/23 17:27 Pulse Rate 88 10/31/23 19:00 Respiratory Rate 22 10/31/23 19:00 Blood Pressure 129/72 10/31/23 18:51 Pulse Oximetry 95 10/31/23 18:04 Oxygen Delivery Method Room Air 10/31/23 17:27 MDM - Fall MDM Narrative Medical decision making narrative: Imaging showed a right femora neck fracture and fractures to the right shoulder. Findings were discussed with the patient and her daughter. A sling was applied to the RUE. The application was checked and was appropriate; the RUE remained NVI. The patient will be admitted for further evaluation and treatment. I spoke with Gerardo Matthews CNP who accepted the patient for admission under Dr. Pickens. Differential Diagnosis Differential diagnosis: Likely dislocation of shoulder region and other (Humerus fracture, hip fracture, head injury, hip contusion, shoulder contusion, fall) Medical Records Attestation: I reviewed the patient's medical records. Lab Data Attestation: I reviewed the patient's lab results. Labs: Lab Results 10/31/23 Range/Units 17:48 WBC 10.5 (4.0-11.0) 10^3/uL RBC 4.14 L (4.20-5.40) 10^6/uL Hgb 12.9 (12.0-16.0) g/dL Hct 38.8 (36.0-48.0) % MCV 93.7 (81.0-99.0) fL MCH 31.2 (26.7-34.0) pg MCHC 33.2 (29.9-35.2) g/dL RDW 13.4 (11.0-15.0) % Plt Count 232 (150-450) 10^3/uL MPV 9.4 L (9.5-13.5) fL Neut % (Auto) 90.3 H (43.0-75.0) % Lymph % (Auto) 3.2 L (20.5-60.0) % Stokes % (Auto) 6.0 (1.7-12.0) % Eos % (Auto) 0.0 L (0.9-7.0) % Baso % (Auto) 0.2 (0.2-2.0) % Neut # (Auto) 9.5 H (1.4-6.5) 10^3/uL Lymph # (Auto) 0.3 L (1.2-3.8) 10^3/uL Stokes # (Auto) 0.6 (0.3-0.8) 10^3/uL Eos # (Auto) 0.0 (0.0-0.7) 10^3/uL Baso # (Auto) 0.0 (0.0-0.1) 10^3/uL Abs Immat Gran (auto) 0.03 (0.00-0.03) 10^3/uL Imm/Tot Granulo (auto) 0.3 (0.0-0.5) % PT 10.5 (9.0-11.6) sec INR 0.99 APTT 28.9 (22.3-36.2) sec Sodium 141 (136-145) mmol/L Potassium 3.8 (3.5-5.1) mmol/L Chloride 103 (98-107) mmol/L Carbon Dioxide 27.4 (21.0-32.0) mmol/L Anion Gap 14.4 BUN 17.0 (7.0-18.0) mg/dL Creatinine 1.22 H (0.55-1.02) mg/dL Est GFR ( Amer) 51 L (>=60) Est GFR (Non-Af Amer) 42 L (>=60) BUN/Creatinine Ratio 13.9 Glucose 143 H (74-106) mg/dL Calcium 9.3 (8.5-10.1) mg/dL Imaging Data CT scan - head: Attestation: I have reviewed the pertinent imaging results. Radiologist's impression: ITS Impressions Cervical Spine CT 10/31/23 17:52 IMPRESSION: No acute intracranial process is identified. No acute fracture. Electronically authenticated by: [employer] Date: 10/31/2023 18:[address] 10/31/23 17:52 IMPRESSION: No acute intracranial process is identified. No acute fracture. Electronically authenticated by: [employer] Date: 10/31/2023 18:32 Hip x-ray: Attestation: I have reviewed the pertinent imaging results. Radiologist's impression: ITS Impressions Cervical Spine CT 10/31/23 17:52 IMPRESSION: No acute intracranial process is identified. No acute fracture. Electronically authenticated by: [employer] Date: 10/31/2023 18:[address] 10/31/23 17:52 IMPRESSION: No acute intracranial process is identified. No acute fracture. Electronically authenticated by: [employer] Date: 10/31/2023 18:32 Procedure: XR shoulder RT min 2V IMAGES REVIEWED: XR shoulder RT min 2V COMPARISON: None available. CLINICAL INDICATION: pain, fall FINDINGS/IMPRESSION: 1. Acute comminuted fracture of the right proximal humerus. 2. Acute fracture of the surgical neck of the right proximal humerus demonstrating approximately 1.5 cm impaction and 1 cm anteromedial displacement. 3. Acute fracture of the greater tuberosity of the humeral head suspected without significant displacement. 4. No glenohumeral dislocation. Likely traumatic glenohumeral hemarthrosis. 5. Moderate degenerative change right AC joint. 6. Osteopenia. Electronically authenticated by: LUIS HAYES Date: 10/31/2023 18:37 Shoulder x-ray: Attestation: I have reviewed the pertinent imaging results. Radiologist's impression: ITS Impressions Cervical Spine CT 10/31/23 17:52 IMPRESSION: No acute intracranial process is identified. No acute fracture. Electronically authenticated by: MIGUELANGEL KOTHARI Date: 10/31/2023 18:[address] 10/31/23 17:52 IMPRESSION: No acute intracranial process is identified. No acute fracture. Electronically authenticated by: MIGUELANGEL KOTHARI Date: 10/31/2023 18:32 Procedure: XR shoulder RT min 2V IMAGES REVIEWED: XR shoulder RT min 2V COMPARISON: None available. CLINICAL INDICATION: pain, fall FINDINGS/IMPRESSION: 1. Acute comminuted fracture of the right proximal humerus. 2. Acute fracture of the surgical neck of the right proximal humerus demonstrating approximately 1.5 cm impaction and 1 cm anteromedial displacement. 3. Acute fracture of the greater tuberosity of the humeral head suspected without significant displacement. 4. No glenohumeral dislocation. Likely traumatic glenohumeral hemarthrosis. 5. Moderate degenerative change right AC joint. 6. Osteopenia. Electronically authenticated by: LUIS HAYES Date: 10/31/2023 18:37 Discharge Plan Discharge Chief Complaint: Fall Clinical Impression: Fracture of right shoulder, Fall, Closed fracture of neck of right femur Patient Disposition: Admitted As Inpatient Time of Disposition Decision: 19:52 Condition: Good
[2023-10-31] MEDS: MORPHINE SULFATE 2 MG/ML SYRINGE 1 MG IV (17:45)
[2023-10-31] MEDS: ONDANSETRON PF 4 MG/2 ML VIAL IV (17:46)
--- NOTE | 2023-10-31 17:52 | CT_ITS ---
The [address] [address] Patient Name: SAM TOBAR MRN: [id number] date: 1940 Sex: F Assigned Patient Location: ED.MAIN Current Patient Location: ED.MAIN Accession/Order Number: [id number] Exam Date: 10/31/2023 17:45 Report Date: 10/31/2023 18:32 At the request of: PARI VALENTE Procedure: CT cervical spine wo con CT head/brain wo con, CT cervical spine wo con, 10/31/2023 5:45 PM EST INDICATION: Fall COMPARISON: Prior CT of the head dated 06/11/2021 TECHNIQUE: Axial images of 3 mm are obtained from the base of the skull to vertex completed with Axial images of 2 mm are obtained from base of skull to T2 without contrast. Dose reduction techniques were achieved by using automated exposure control and/or adjustment of mA and/or kV according to patient size and/or use of iterative reconstruction technique. FINDINGS: The cerebral and cerebellar sulci as well as ventricular system are appropriate for age. There is no intracranial mass, mass effect, midline shift, intra or extra-axial fluid collection. No acute territorial infarction or hemorrhage is noted. Periventricular and centrum semiovale hypodensities are most likely consistent with microvascular ischemic changes. The visualized portions of orbits, mastoid air cells as well as paranasal sinuses are unremarkable. There is no suspicious osteolytic or osteoblastic lesion. There is diffuse demineralization of bone. No acute fracture or dislocation is noted. Multilevel degenerative changes of cervical spine are noted. CT/CT cervical spine wo con IMPRESSION: No acute intracranial process is identified. No acute fracture. Electronically authenticated by: MIGUELANGEL KOTHARI Date: 10/31/2023 18:32
--- NOTE | 2023-10-31 17:52 | CT_ITS ---
The [address] [address] Patient Name: SAM TOBAR MRN: [id number] date: 1940 Sex: F Assigned Patient Location: ED.MAIN Current Patient Location: ED.MAIN Accession/Order Number: [id number] Exam Date: 10/31/2023 17:45 Report Date: 10/31/2023 18:32 At the request of: PARI VALENTE Procedure: CT head/brain wo con CT head/brain wo con, CT cervical spine wo con, 10/31/2023 5:45 PM EST INDICATION: Fall COMPARISON: Prior CT of the head dated 06/11/2021 TECHNIQUE: Axial images of 3 mm are obtained from the base of the skull to vertex completed with Axial images of 2 mm are obtained from base of skull to T2 without contrast. Dose reduction techniques were achieved by using automated exposure control and/or adjustment of mA and/or kV according to patient size and/or use of iterative reconstruction technique. FINDINGS: The cerebral and cerebellar sulci as well as ventricular system are appropriate for age. There is no intracranial mass, mass effect, midline shift, intra or extra-axial fluid collection. No acute territorial infarction or hemorrhage is noted. Periventricular and centrum semiovale hypodensities are most likely consistent with microvascular ischemic changes. The visualized portions of orbits, mastoid air cells as well as paranasal sinuses are unremarkable. There is no suspicious osteolytic or osteoblastic lesion. There is diffuse demineralization of bone. No acute fracture or dislocation is noted. Multilevel degenerative changes of cervical spine are noted. CT/CT head/brain wo con IMPRESSION: No acute intracranial process is identified. No acute fracture. Electronically authenticated by: MIGUELANGEL KOTHARI Date: 10/31/2023 18:32
--- NOTE | 2023-10-31 18:02 | XR_ITS ---
The [place] [id number] Patient Name: SAM TOBAR MRN: [id number] date: 1940 Sex: F Assigned Patient Location: ER Current Patient Location: ER Accession/Order Number: [id number] Exam Date: 10/31/2023 17:52 Report Date: 10/31/2023 18:35 At the request of: PARI VALENTE Procedure: XR hip RT 2V w/ pelvis EXAM: XR hip RT 2V w/ pelvis HISTORY: pain, fall cyst COMPARISON: None. TECHNIQUE: 3 views of right hip FINDINGS and impression: Impacted, mildly displaced fracture of right femoral neck with 0.9 cm fracture fragments overlap and 1.1 cm anteromedial displacement of distal fracture fragment relative to the femoral head. There is no dislocation. CT of the hip is recommended for better evaluation. Electronically authenticated by: NIC CABRERA Date: 10/31/2023 18:35
--- NOTE | 2023-10-31 18:02 | XR_ITS ---
The [place] [id number] Patient Name: SAM TOBAR MRN: [id number] date: 1940 Sex: F Assigned Patient Location: ER Current Patient Location: Accession/Order Number: [id number] Exam Date: 10/31/2023 17:52 Report Date: 10/31/2023 18:37 At the request of: PARI VALENTE Procedure: XR shoulder RT min 2V IMAGES REVIEWED: XR shoulder RT min 2V COMPARISON: None available. CLINICAL INDICATION: pain, fall FINDINGS/IMPRESSION: 1. Acute comminuted fracture of the right proximal humerus. 2. Acute fracture of the surgical neck of the right proximal humerus demonstrating approximately 1.5 cm impaction and 1 cm anteromedial displacement. 3. Acute fracture of the greater tuberosity of the humeral head suspected without significant displacement. 4. No glenohumeral dislocation. Likely traumatic glenohumeral hemarthrosis. 5. Moderate degenerative change right AC joint. 6. Osteopenia. Electronically authenticated by: LUIS HAYES Date: 10/31/2023 18:37
[2023-10-31 18:27] LABS: Basophils Percent Auto 0.2 % (0.2-2.0); Hematocrit 38.8 % (36.0-48.0); Hemoglobin 12.9 g/dL (12.0-16.0); Immature Granulocytes Abs Auto 0.03 10^3/uL (0.00-0.03); Immature Granulocytes Pct Auto 0.3 % (0.0-0.5); Lymphocytes Absolute Auto 0.3 10^3/uL (1.2-3.8); Lymphocytes Percent Auto 3.2 % (20.5-60.0); Mean Corpuscular HGB Conc 33.2 g/dL (29.9-35.2); Mean Corpuscular Hemoglobin 31.2 pg (26.7-34.0); Mean Corpuscular Volume 93.7 fL (81.0-99.0); Mean Platelet Volume 9.4 fL (9.5-13.5); Monocytes Absolute Auto 0.6 10^3/uL (0.3-0.8); Neutrophils Absolute Auto 9.5 10^3/uL (1.4-6.5); Neutrophils Percent Auto 90.3 % (43.0-75.0); Platelet Count 232 10^3/uL (150-450); Red Blood Count 4.14 10^6/uL (4.20-5.40); Red Cell Distribution Width 13.4 % (11.0-15.0); White Blood Count 10.5 10^3/uL (4.0-11.0)
[2023-10-31 18:37] LABS: Anion Gap 14.4; BUN Creatinine Ratio 13.9; Calcium 9.3 mg/dL (8.5-10.1); Carbon Dioxide 27.4 mmol/L (21.0-32.0); Chloride 103 mmol/L (98-107); Estimated GFR (African America 51 (>=60); Estimated GFR (Non-African Ame 42 (>=60); Glucose 143 mg/dL (74-106); Potassium 3.8 mmol/L (3.5-5.1); Sodium 141 mmol/L (136-145)
[2023-10-31 19:22] LABS: INR 0.99; Partial Thromboplastin Time 28.9 sec (22.3-36.2); Prothrombin Time 10.5 sec (9.0-11.6)
--- OUTSIDE RECORDS SUMMARY | 2023-10-31 20:27 | XMS_ITS | CCD ---
Author Name Unknown Address [address] [facility] [address] [place] [address] Organization [facility] Care Team Providers Care General Accountant Name Role Phone JENNIFER, DR HAYWOOD Admitting [...] PILLAI Attending Unavailable CHASTITY RODRIGUEZ Attending Unavailable Chastity Rodriguez MD Primary Care Provider [phone] Allergies Allergy Classification Reported Allergen(s) Allergy Type Date of Onset Reaction(s) Facility (1 source) donepezil Drug Allergy [facility] (1 source) Penicillins Drug allergy (disorder) 3 [facility] (1 source) Sulfonamides (Antibiotic) Drug allergy (disorder) 3 [facility] (1 source) Clarithromycin Allergy to substance 3 [facility] (1 source) Penicillin G Drug Allergy 3 [facility] (1 source) Sulfamethoxazole / Trimethoprim Drug Allergy 3 [facility] Medications Current Medications Medication Drug Class(es) Dates Sig (Normalized) Sig (Original) ARIPiprazole 2 mg oral tablet (2 sources) Atypical Antipsychotic Start: 10-31-2023 ARIPiprazole (Abilify) 2 MG tablet Indications: Dementia with behavioral disturbance (CMS/HCC) , Delusions (CMS/HCC) tItrate from 1/2 tablet to 1 tablet at bedtime as directed. 30 tablet 0 10/31/2023 Active Start: 10-28-2023 End: 10-31-2023 ARIPiprazole (Abilify) 2 MG tablet Indications: Dementia with behavioral disturbance (CMS/HCC) , Delusions (CMS/HCC) tItrate from 1/2 tablet to 1 tablet as directed. 30 tablet 0 10/28/2023 10/31/2023 Discontinued (Reorder) calcium citrate 1040 mg oral tablet (1 source) take 4 tablets by mouth in the morning calcium citrate 250 MG tablet Take 4 tablets by mouth in the morning. 0 Active cholecalciferol 0.05 mg oral capsule (1 source) Vitamin D take 1 capsule by mouth in the morning cholecalciferol (Vitamin D-3) 50 MCG (2000 UT) capsule Take 2,000 Units by mouth in the morning. 0 Active levothyroxine sodium 0.025 mg oral tablet (1 source) l-Thyroxine take 1 tablet by mouth before mealtime levothyroxine (Synthroid, Levoxyl) 25 MCG tablet Take 25 mcg by mouth in the morning. Take before meals. 0 Active 24 hr oxybutynin chloride 5 mg extended release oral tablet (1 source) Cholinergic Muscarinic Antagonist take 1 tablet by mouth every twenty-four hours in the morning oxybutynin XL (Ditropan-XL) 5 MG 24 hr tablet Take 5 mg by mouth in the morning. Do not crush, chew, or split. . 0 Active PARoxetine hydrochloride 10 mg oral tablet (1 source) Serotonin Reuptake Inhibitor Start: End: 024 take 1 tablet by mouth in the morning PARoxetine (Paxil) 10 MG tablet Indications: Dementia with behavioral disturbance (CMS/HCC) Take 1 tablet (10 mg) by mouth in the morning. 90 tablet 1 07/25/2023 01/21/2024 Active Problems Active Problems Problem Classification Problem Date Documented Date Episodic/Chronic Chronic kidney disease (1 source) Chronic kidney disease stage 3A ; Translations: [Stage 3a chronic kidney disease (HCC)] Onset: 05-09-2023 05-09-2023 Chronic Delirium, dementia, and amnestic and other cognitive disorders (2 sources) Dementia with behavioral disturbance; Translations: [Dementia with behavioral disturbance (CMS/HCC)] Onset: 05-03-2023 10-31-2023 Chronic Disorders of lipid metabolism (2 sources) Pure hypercholesterolemia, unspecified; Translations: [Hypercholesterolemia ] Onset: 10-01-2022 05-03-2023 Chronic Genitourinary symptoms and ill-defined conditions (1 source) Incontinence; Translations: [Unspecified urinary incontinence] Onset: 05-05-2023 05-05-2023 Chronic Nutritional deficiencies (8 sources) Vitamin D deficiency, unspecified; Translations: [Moderate protein-calorie malnutrition] Onset: 11-20-2021 Chronic Schizophrenia and other psychotic disorders (2 sources) Delusions; 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] Onset: 05-03-2023 10-31-2023 Chronic Spondylosis; intervertebral disc disorders; other back problems (1 source) Degeneration of lumbar intervertebral disc; Translations: [Other intervertebral disc degeneration, lumbar region] Onset: 05-05-2023 05-05-2023 Chronic Thyroid disorders (6 sources) Hypothyroidism, unspecified; Translations: [Hypothyroidism] Onset: 09-29-2022 Chronic Past or Other Problems Problem Classification Problem Date Documented Da te Episodic/Chronic Abdominal hernia (1 source) Hiatal hernia; Translations: [Diaphragmatic hernia without obstruction or gangrene] Onset: 05-03-2023 05-03-2023 Episodic Mood disorders (1 source) Mood disorders Onset: 08-22-2023 08-22-2023 Other nutritional; endocrine; and metabolic disorders (1 source) Body mass index less than 20; Translations: [Body mass index (BMI) 19.9 or less, adult] Onset: 05-09-2023 05-09-2023 Episodic Pancreatic disorders (not diabetes) (1 source) Acute pancreatitis without necrosis or infection, unspecified; Translations: [ACUTE PANCREATITIS WO NECRS/INF UNS] Onset: 11-24-2021 Episodic Residual codes; unclassified (1 source) Body mass index 20-24 - normal; Translations: [Body mass index (BMI) 20.0-20.9, adult] Onset: 05-03-2023 Resolved: 05-09-2023 05-09-2023 Episodic Results Test Name Value Interpretation Reference Range Facil ity CBC AUTO DIFFon 09-29-2022 BASO # 0.0 103/ul Normal 0.0-0.1 [facility] Comment on above: Performed By: #### C BC #### [facility] [address] [place] [address] Dr. Naheed Hernandes Basophils/100 WBC (Bld) 0.7 % Normal 0.2-2.0 [place] Comment on above: Performed By: #### C BC #### [facility] [address] [place] [address] Dr. Naheed Hernandes EO # 0.1 103/ul Normal 0.0-0.7 [facility] Comment on above: Performed By: #### C BC #### [facility] [address] [place] [address] Dr. Naheed Hernandes Eosinophils/100 WBC (Bld) 2.2 % Normal 0.9-7.0 [place] Comment on above: Performed By: #### C BC #### [facility] [address] [place] [address] Dr. Naheed Hernandes Erythrocyte distribution width (RBC) [Ratio] 13.2 % Normal 11.0-15.0 [place] Comment on above: Performed By: #### C BC #### [facility] [address] [place] [address] Dr. Naheed Hernandes Hematocrit (Bld) [Volume fraction] 43.2 % Normal 36.0-48.0 [place] Comment on above: Performed By: #### C BC #### [facility] [address] [place] [address] Dr. Naheed Hernandes Hemoglobin (Bld) [Mass/Vol] 14.0 g/dL Normal 12.0-16.0 [facility] Comment on above: Performed By: #### C BC #### [facility] [address] [place] [address] Dr. Naheed Hernandes IG # 0.01 10e3/ul Normal 0.00-0.03 [facility] Comment on above: Performed By: #### C BC #### [facility] [address] [place] [address] Dr. Naheed Hernandes IG % 0.2 % Normal 0.0-0.5 [facility] Comment on above: Performed By: #### C BC #### [facility] [address] [place] [address] Dr. Naheed Hernandes LYMPH # 1.0 103/ul Critically low 1.2-3.8 [facility] Comment on above: Performed By: #### C BC #### [facility] [address] [place] [address] Dr. Naheed Hernandes Lymphocytes/100 WBC (Bld) 17.4 % Critically low 20.5-60.0 [place] Comment on above: Performed By: #### C BC #### [facility] [address] [place] [address] Dr. Naheed Hernandes MANUAL DIFF REQ NO Normal [facility] Comment on above: Performed By: #### C BC #### [facility] [address] [place] [address] Dr. Naheed Hernandes MCH (RBC) [Entitic mass] 30.0 pg Normal 26.7-34.0 [place] Comment on above: Performed By: #### C BC #### [facility] [address] [place] [address] Dr. Naheed Hernandes MCHC (RBC) [Mass/Vol] 32.4 g/dL Normal 29.9-35.2 [facility] Comment on above: Performed By: #### C BC #### [facility] [address] [place] [address] Dr. Naheed Hernandes MCV (RBC) [Entitic vol] 92.7 fL Normal 81.0-99.0 [place] Comment on above: Performed By: #### C BC #### [facility] [address] [place] [address] Dr. Naheed Hernandes MONO # 0.5 103/ul Normal 0.3-0.8 [facility] Comment on above: Performed By: #### C BC #### [facility] [address] [place] [address] Dr. Naheed Hernandes Monocytes/100 WBC (Bld) 8.5 % Normal 1.7-12.0 [place] Comment on above: Performed By: #### C BC #### [facility] [address] [place] [address] Dr. Naheed Hernandes NEUT # 4.2 103/ul Normal 1.4-6.5 [place] Comment on above: Performed By: #### C BC #### [facility] [address] [place] [address] Dr. Naheed Hernandes Neutrophils/100 WBC (Bld) 71.0 % Normal 43.0-75.0 [place] Comment on above: Performed By: #### C BC #### [facility] [address] [place] [address] Dr. Naheed Hernandes Platelet mean volume (Bld) [Entitic vol] 9.3 fL Critically low 9.5-13.5 [place] Comment on above: Performed By: #### C BC #### [facility] [address] [place] [address] Dr. Naheed Hernandes PLT 242 103/ul Normal 150-450 [place] Comment on above: Performed By: #### C BC #### [facility] [address] [place] [address] Dr. Naheed Hernandes RBC 4.66 106/ul Normal 4.20-5.40 [place] Comment on above: Performed By: #### C BC #### [facility] [address] [place] [address] Dr. Naheed Hernandes WBC 5.9 103/ul Normal 4.0-11.0 [place] Comment on above: Performed By: #### C BC #### [facility] [address] [place] [address] Dr. Naheed Hernandes FREE T3on 09-29-2022 FREE T3 2.15 pg/mlL Critically low 2.18-3.98 [facility] Comment on above: Performed By: #### L IPID, TSH, FT3, CMP #### [facility] [address] [place] [address] Dr. Naheed Hernandes FREE T4on 09-29-2022 Free T4 [Mass/Vol] 1.28 ng/dL Normal 0.76-1.46 [facility] Comment on above: Performed By: #### F T4, VITAD #### [facility] [address] [place] [address] Dr. Naheed Hernandes LIPID PROFILEon 09-29-2022 CHOL-HDL RATIO NORM SEE BELOW Normal [place] Comment on above: Result Comment: 3.3 - 4.4 LOW RISK 4.4 - 7.1 AVERAGE RISK 7.1 - 11.0 MODERATE RISK >11.0 HIGH RISK Performed By: #### L IPID, TSH, FT3, CMP #### [facility] [address] [address] [address] Naheed Hernandes Cholesterol [Mass/Vol] 186 mg/dL Normal <=200 [place] Comment on above: Performed By: #### L IPID, TSH, FT3, CMP #### [facility] [address] [place] [address] Dr. Naheed Hernandes Cholesterol in HDL [Mass/Vol] 70 mg/dL Critically high 40-60 [place] Comment on above: Performed By: #### L IPID, TSH, FT3, CMP #### [facility] [address] [address] [address] Naheed Hernandes Cholesterol in LDL [Mass/Vol] 98.8 mg/dL Normal [facility] Comment on above: Performed By: #### L IPID, TSH, FT3, CMP #### [facility] [address] [place] [address] Dr. Naheed Hernandes Cholesterol.total/ Cholesterol in HDL [Mass ratio] 2.7 {ratio} Normal [facility] Comment on above: Performed By: #### L IPID, TSH, FT3, CMP #### [facility] [address] [place] [address] Dr. Naheed Hernandes HDL NORMAL > or = 60 mg/dl - LO W CARDIOVASCULAR RISK <40 mg/dl - HIGH CARDIOVASCULAR RISK Normal [facility] Comment on above: Performed By: #### L IPID, TSH, FT3, CMP #### [facility] [address] [place] [address] Dr. Naheed Hernandes LDL CALC NORMAL SEE BELOW Normal [facility] Comment on above: Result Comment: <100 mg/dl OPTIMAL 100 - 129 mg/dl NEAR OR ABOVE OPTIMAL 130 - 159 mg/dl BORDERLINE HIGH 160 - 189 mg/dl HIGH >190 mg/dl VERY HIGH Performed By: #### L IPID, TSH, FT3, CMP #### [facility] [address] [address] [address] Naheed Hernandes Triglyceride [Mass/Vol] 86 mg/dL Normal <=150 [place] Comment on above: Performed By: #### L IPID, TSH, FT3, CMP #### [facility] [address] [address] [address] Naheed Hernandes VLDL CALC 17.2 mg/dL Normal [place] Comment on above: Performed By: #### L IPID, TSH, FT3, CMP #### [facility] [address] [place] [address] Dr. Naheed Hernandes PROF 14(COMP METB)on 023 Albumin [Mass/Vol] 3.7 g/dL Normal 3.4-5.0 [facility] Comment on above: Performed By: #### L IPID, TSH, FT3, CMP #### [facility] [address] [place] [address] Dr. Naheed Hernandes Albumin/Globulin [Mass ratio] 1.1 {ratio} Normal [place] Comment on above: Performed By: #### L IPID, TSH, FT3, CMP #### [facility] [address] [place] [address] Dr. Naheed Hernandes ALP [Catalytic activity/Vol] 90 U/L Normal 46-116 [facility] Comment on above: Performed By: #### L IPID, TSH, FT3, CMP #### [facility] [address] [place] [address] Dr. Naheed Hernandes ALT [Catalytic activity/Vol] 14 U/L Normal 14-59 [place] Comment on above: Performed By: #### L IPID, TSH, FT3, CMP #### [facility] [address] [place] [address] Dr. Naheed Hernandes Anion gap [Moles/Vol] 7.6 mmol/L Normal [place] Comment on above: Performed By: #### L IPID, TSH, FT3, CMP #### [facility] [address] [place] [address] Dr. Naheed Hernandes AST [Catalytic activity/Vol] 25 U/L Normal 15-37 [place] Comment on above: Performed By: #### L IPID, TSH, FT3, CMP #### [facility] [address] [place] [address] Dr. Naheed Hernandes Bilirubin [Mass/Vol] 1.4 mg/dL Critically high 0.2-1.0 [place] Comment on above: Performed By: #### L IPID, TSH, FT3, CMP #### [facility] [address] [place] [address] Dr. Naheed Hernandes Calcium [Mass/Vol] 9.0 mg/dL Normal 8.5-10.1 [facility] Comment on above: Performed By: #### L IPID, TSH, FT3, CMP #### [facility] [address] [place] [address] Dr. Naheed Hernandes Chloride [Moles/Vol] 103 mmol/L Normal 98-107 [facility] Comment on above: Performed By: #### L IPID, TSH, FT3, CMP #### [facility] [address] [place] [address] Dr. Naheed Hernandes CO2 [Moles/Vol] 32.2 mmol/L Critically high 21.0-32.0 [place] Comment on above: Performed By: #### L IPID, TSH, FT3, CMP #### [facility] [address] [place] [address] Dr. Naheed Hernandes Creatinine [Mass/Vol] 1.05 mg/dL Critically high 0.55-1.02 [place] Comment on above: Performed By: #### L IPID, TSH, FT3, CMP #### [facility] [address] [place] [address] Dr. Naheed Hernandes EGFR-AF GUAMANIAN >60 Normal >=60 [facility] Comment on above: Performed By: #### L IPID, TSH, FT3, CMP #### [facility] [address] [place] [address] Dr. Naheed Hernandes EGFR-NON AF GUAMANIAN 50 mL/min/1.73m2 Critically low >=60 [facility] Comment on above: Performed By: #### L IPID, TSH, FT3, CMP #### [facility] [address] [place] [address] Dr. Naheed Hernandes Globulin (S) [Mass/Vol] 3.4 g/dL Normal [place] Comment on above: Performed By: #### L IPID, TSH, FT3, CMP #### [facility] [address] [address] [address] Naheed Hernandes Glucose [Mass/Vol] 85 mg/dL Normal 74-106 [facility] Comment on above: Performed By: #### L IPID, TSH, FT3, CMP #### [facility] [address] [place] [address] Dr. Naheed Hernandes Potassium [Moles/Vol] 3.8 mmol/L Normal 3.5-5.1 [place] Comment on above: Performed By: #### L IPID, TSH, FT3, CMP #### [facility] [address] [place] [address] Dr. Naheed Hernandes Protein [Mass/Vol] 7.1 g/dL Normal 6.4-8.2 [facility] Comment on above: Performed By: #### L IPID, TSH, FT3, CMP #### [facility] [address] [place] [address] Dr. Naheed Hernandes Sodium [Moles/Vol] 139 mmol/L Normal 136-145 [facility] Comment on above: Performed By: #### L IPID, TSH, FT3, CMP #### [facility] [address] [place] [address] Dr. Naheed Hernandes Urea nitrogen [Mass/Vol] 16.0 mg/dL Normal 7.0-18.0 [place] Comment on above: Performed By: #### L IPID, TSH, FT3, CMP #### [facility] [address] [place] [address] Dr. Naheed Hernandes Urea nitrogen/Creatinin e [Mass ratio] 15.2 mg/mg Normal [facility] Comment on above: Performed By: #### L IPID, TSH, FT3, CMP #### [facility] [address] [place] [address] Dr. Naheed Hernandes TSHon 09-29-2022 TSH 1.283 uIU/mL Normal 0.358-3.740 [facility] Comment on above: Performed By: #### L IPID, TSH, FT3, CMP #### [facility] [address] [place] [address] Dr. Naheed Hernandes VITAMIN D 25 OHon 09-29-2022 VIT D 25-OH 78.0 ng/mL Normal [place] Comment on above: Performed By: #### F T4, VITAD #### [facility] [address] [place] [address] Dr. Naheed Hernandes VIT D RANGES SEE BELOW Normal [facility] Comment on above: Result Comment: <20 ng/mL Vit D deficient 20 - <30 ng/mL Vit D insufficient 30 - 100 ng/mL Vit D sufficient >100 ng/mL Potential Toxicity Performed By: #### F T4, VITAD #### [facility] [address] [place] [address] Dr. Naheed Hernandes CBC AUTO DIFFon 11-20-2021 BASO # 0.0 103/ul Normal 0.0-0.1 [place] Comment on above: Performed By: #### C BC #### [facility] [address] [place] [address] Dr. Naheed Hernandes Basophils/100 WBC (Bld) 0.6 % Normal 0.2-2.0 [facility] Comment on above: Performed By: #### C BC #### [facility] [address] [place] [address] Dr. Naheed Hernandes EO # 0.1 103/ul Normal 0.0-0.7 [place] Comment on above: Performed By: #### C BC #### [facility] [address] [place] [address] Dr. Naheed Hernandes Eosinophils/100 WBC (Bld) 1.9 % Normal 0.9-7.0 [place] Comment on above: Performed By: #### C BC #### [facility] [address] [place] [address] Dr. Naheed Hernandes Erythrocyte distribution width (RBC) [Ratio] 13.3 % Normal 11.0-15.0 [place] Comment on above: Performed By: #### C BC #### [facility] [address] [place] [address] Dr. Naheed Hernandes Hematocrit (Bld) [Volume fraction] 43.7 % Normal 36.0-48.0 [place] Comment on above: Performed By: #### C BC #### [facility] [address] [place] [address] Dr. Naheed Hernandes Hemoglobin (Bld) [Mass/Vol] 14.2 g/dL Normal 12.0-16.0 [place] Comment on above: Performed By: #### C BC #### [facility] [address] [place] [address] Dr. Naheed Hernandes IG # 0.01 10e3/ul Normal 0.00-0.03 [place] Comment on above: Performed By: #### C BC #### [facility] [address] [place] [address] Dr. Naheed Hernandes IG % 0.1 % Normal 0.0-0.5 [place] Comment on above: Performed By: #### C BC #### [facility] [address] [place] [address] Dr. Naheed Hernandes LYMPH # 1.6 103/ul Normal 1.2-3.8 [facility] Comment on above: Performed By: #### C BC #### [facility] [address] [place] [address] Dr. Naheed Hernandes Lymphocytes/100 WBC (Bld) 23.1 % Normal 20.5-60.0 [place] Comment on above: Performed By: #### C BC #### [facility] [address] [place] [address] Dr. Naheed Hernandes MANUAL DIFF REQ NO Normal [facility] Comment on above: Performed By: #### C BC #### [facility] [address] [place] [address] Dr. Naheed Hernandes MCH (RBC) [Entitic mass] 30.4 pg Normal 26.7-34.0 [place] Comment on above: Performed By: #### C BC #### [facility] [address] [place] [address] Dr. Naheed Hernandes MCHC (RBC) [Mass/Vol] 32.5 g/dL Normal 29.9-35.2 [place] Comment on above: Performed By: #### C BC #### [facility] [address] [place] [address] Dr. Naheed Hernandes MCV (RBC) [Entitic vol] 93.6 fL Normal 81.0-99.0 [place] Comment on above: Performed By: #### C BC #### [facility] [address] [place] [address] Dr. Naheed Hernandes MONO # 0.7 103/ul Normal 0.3-0.8 [place] Comment on above: Performed By: #### C BC #### [facility] [address] [place] [address] Dr. Naheed Hernandes Monocytes/100 WBC (Bld) 10.2 % Normal 1.7-12.0 [place] Comment on above: Performed By: #### C BC #### [facility] [address] [place] [address] Dr. Naheed Hernandes NEUT # 4.4 103/ul Normal 1.4-6.5 [place] Comment on above: Performed By: #### C BC #### [facility] [address] [place] [address] Dr. Naheed Hernandes Neutrophils/100 WBC (Bld) 64.1 % Normal 43.0-75.0 [place] Comment on above: Performed By: #### C BC #### [facility] [address] [place] [address] Dr. Naheed Hernandes Platelet mean volume (Bld) [Entitic vol] 9.2 fL Critically low 9.5-13.5 [place] Comment on above: Performed By: #### C BC #### [facility] [address] [place] [address] Dr. Naheed Hernandes PLT 243 103/ul Normal 150-450 [place] Comment on above: Performed By: #### C BC #### [facility] [address] [place] [address] Dr. Naheed Hernandes RBC 4.67 106/ul Normal 4.20-5.40 [place] Comment on above: Performed By: #### C BC #### [facility] [address] [place] [address] Dr. Naheed Hernandes WBC 6.9 103/ul Normal 4.0-11.0 [place] Comment on above: Performed By: #### C BC #### [facility] [address] [place] [address] Dr. Naheed Hernandes LIPASEon 11-20-2021 Lipase [Catalytic activity/Vol] 138.0 U/L Normal 23.0-300.0 [place] Comment on above: Performed By: #### L IPA, CMP #### [facility] [address] [place] [address] Dr. Naheed Hernandes PROF 14(COMP METB)on 022 Albumin [Mass/Vol] 3.9 g/dL Normal 3.5-5.0 [facility] Comment on above: Performed By: #### L IPA, CMP #### [facility] [address] [place] [address] Dr. Naheed Hernandes Albumin/Globulin [Mass ratio] 1.1 {ratio} Normal [place] Comment on above: Performed By: #### L IPA, CMP #### [facility] [address] [place] [address] Dr. Naheed Hernandes ALP [Catalytic activity/Vol] 88 U/L Normal 38-126 [place] Comment on above: Performed By: #### L IPA, CMP #### [facility] [address] [place] [address] Dr. Naheed Hernandes ALT [Catalytic activity/Vol] 13 U/L Normal 9-52 [place] Comment on above: Performed By: #### L IPA, CMP #### [facility] [address] [place] [address] Dr. Naheed Hernandes Anion gap [Moles/Vol] 9.1 mmol/L Normal [place] Comment on above: Performed By: #### L IPA, CMP #### [facility] [address] [address] [address] Naheed Hernandes AST [Catalytic activity/Vol] 20 U/L Normal 14-36 [place] Comment on above: Performed By: #### L IPA, CMP #### [facility] [address] [place] [address] Dr. Naheed Hernandes Bilirubin [Mass/Vol] 1.0 mg/dL Normal 0.2-1.3 [place] Comment on above: Performed By: #### L IPA, CMP #### [facility] [address] [place] [address] Dr. Naheed Hernandes Calcium [Mass/Vol] 8.7 mg/dL Normal 8.4-10.2 [facility] Comment on above: Performed By: #### L IPA, CMP #### [facility] [address] [place] [address] Dr. Naheed Hernandes Chloride [Moles/Vol] 103 mmol/L Normal 98-107 [place] Comment on above: Performed By: #### L IPA, CMP #### [facility] [address] [place] [address] Dr. Naheed Hernandes CO2 [Moles/Vol] 32.6 mmol/L Critically high 22.0-30.0 [place] Comment on above: Performed By: #### L IPA, CMP #### [facility] [address] [place] [address] Dr. Naheed Hernandes Creatinine [Mass/Vol] 1.34 mg/dL Critically high 0.52-1.04 [place] Comment on above: Performed By: #### L IPA, CMP #### [facility] [address] [place] [address] Dr. Naheed Hernandes EGFR-AF GUAMANIAN 46 mL/min/1.73m2 Critically low >=60 [place] Comment on above: Performed By: #### L IPA, CMP #### [facility] [address] [address] [address] Naheed Hernandes EGFR-NON AF GUAMANIAN 38 mL/min/1.73m2 Critically low >=60 [place] Comment on above: Performed By: #### L IPA, CMP #### [facility] [address] [address] [address] Naheed Hernandes Globulin (S) [Mass/Vol] 3.7 g/dL Normal [place] Comment on above: Performed By: #### L IPA, CMP #### [facility] [address] [address] [address] Naheed Hernandes Glucose [Mass/Vol] 109 mg/dL Critically high 74-106 T [facility] Comment on above: Performed By: #### L IPA, CMP #### [facility] [address] [address] [address] Naheed Hernandes Potassium [Moles/Vol] 3.7 mmol/L Normal 3.4-5.0 [place] Comment on above: Performed By: #### L IPA, CMP #### [facility] [address] [place] [address] Dr. Nhaeed Hernandes Protein [Mass/Vol] 7.6 g/dL Normal 6.1-8.2 [facility] Comment on above: Performed By: #### L IPA, CMP #### [facility] [address] [address] [address] Naheed Hernandes Sodium [Moles/Vol] 141 mmol/L Normal 137-145 [facility] Comment on above: Performed By: #### L IPA, CMP #### [facility] [address] [address] [address] Naheed Hernandes Urea nitrogen [Mass/Vol] 20.0 mg/dL Critically high 7.0-17.0 [place] Comment on above: Performed By: #### L IPA, CMP #### [facility] [address] [address] [address] Naheed Hernandes Urea nitrogen/Creatinin e [Mass ratio] 14.9 mg/mg Normal [facility] Comment on above: Performed By: #### L IPA, CMP #### [facility] [address] [address] [address] Naheed Hernandes COVID-19 [facility] [place] SARS-CoV-2 (COVID-19) RNA ANUP+probe Ql (Unsp spec) Negative Normal Negative [facility] Comment on above: Order Comment: Healt hcare Worker?: N Result Comment: Testing for SARS-CoV-2 by RT-PCR This test was developed and its performance characteristics determined by [employer] and validated at the [facility]. This test has not been FDA cleared [...] is terminated or revoked sooner. PERFORMED BY: [facility] [address] [place] [address] PATHOLOGIST FEATHER WASHER PETAR ARTEAGA M.D. Performed By: #### C OVID 19 [facility] #### [facility] [address] [id number] [facility] Encounters Encounter Date Encounter Type Care Provider Facility Start: 10-31-2023 Telephone encounter December Maryuri DUDLEY Sheila Comment on above: Medication Question Start: 08-22-2023 End: 08-22-2023 ambulatory CHASTITY RODRIGUEZ Not Available Start: 01-21-2023 ambulatory JUDY PILLAI Facility: [facility] Start: 11-26-2022 ambulatory JUDY PILLAI Facility: [facility] Start: 09-29-2022 End: 09-30-[address] ALMA ROSA OBREGON Facility:[facility] Start: 11-20-2021 End: 11-21-[address] CHASTITY RODRIGUEZ Facility:[facility] Plan of Treatment Date Care Activity Detail Author Start: 08-22-2024 Medicare Annual Well ness (AWV) Medicare Annual Wellness (AWV) [facility] Start: 06-20-2018 Pneumococcal Vaccine : 65+ Years (2 - PCV) Pneumococcal Vaccine: 65+ Years (2 - PCV) [facility] Immunizations Immunization Date Immunization Notes Care Provider Fa cili 07-16-2023 SARS-COV-2 (COVID-19 ) vaccine, mRNA, spike protein, LNP, PF, 50 mcg/0.5 mL [facility] 07-02-2023 Influenza, Seasonal, Quadrivalent, Adjuvanted [facility] 07-09-2022 Influenza, High-dose Seasonal, Quadrivalent, Preservative Free [facility] 07-18-2020 Influenza, High-dose Seasonal, Quadrivalent, Preservative Free [facility] 07-13-2019 influenza, high dose seasonal, preservative-free [facility] are 06-20-2017 influenza, injectabl e, quadrivalent, preservative free [facility] 06-20-2017 pneumococcal polysac charide vaccine, 23 valent [facility] 08-03-2016 influenza, injectabl e, quadrivalent, preservative free [facility] Payers Date Payer Category Payer Medicare [id number] 2019 Unknown [employer] MANNAHVan CASTELLANO [id number] 2019-Present [address] [id number] 2007 Medicare MEDICARE MEDICAR E PART B [id number] 2007-[place] [address] Medicare [id number] 1959 Medicare [id number] 1959 Unknown [id number] 1940 Unknown [id number] 1942 Unknown [id number] 1942 Unknown [id number] 1942 Unknown [id number] 1942 Unknown [id number] Social History Date Type Detail Facility Start: [facility] History of tobacco use Current smoker [facility] History of tobacco use Cigarette Smoker [facility] Start: 05-03-2023 Tobacco use and exposure Smokeless t obacco non-user [facility] Start: 08-22-2023 Alcohol intake Ex-drinker (finding) [facility] Start: 08-22-2023 History of Social function [facility] Start: 08-22-2023 Tobacco use panel [facility] Start: 1940 Sex Assigned At Not on file [facility] Telephone encounter Note 10-31-2023 Telephone Encounter - Chastity Rodriguez MD - 10/31/2023 1:34 PM EST Note Date & Type Note Facility 10-31-2023 Telephone encount er Note RX clarified and sent [facility] Note 10-31-2023 Telephone Encounter - Chastity Rodriguez MD - 10/31/2023 1:34 PM ESTTelephone Encounter - Marlyn Wahl MA - 10/31/2023 9:07 AM EST Note Date & Type Note Facility 10-31-2023 Miscellaneous Notes Formattin g of this note might be different from the original. RX clarified and sent [facility] sent a fax stating Medicare will not accept the script as written. They need directions on how many times a day she is taking the abilify. Please complete and resend rx. documented in this encounter [facility] Telephone encounter Note 10-31-2023 Telephone Encounter - Marlyn Wahl MA - 10/31/2023 9:07 AM EST Note Date & Type Note Facility 10-31-2023 Telephone encount er Note [facility] sent a fax stating Medicare will not accept the script as written. They need directions on how many times a day she is taking the abilify. Please complete and resend rx. [facility] Evaluation note Note Date & Type Note Facility Evaluation note Diagnosis Dementia with behavioral disturbance (CMS/HCC) Delusions (CMS/HCC) Unspecified paranoid state documented in this encounter [facility] Summary Purpose Family History No Family History Records FoundNo Family History Records FoundNo Family History Records FoundNo Family History Records Found Advance Directives No Advanced Directives Records FoundNo Advanced Directives Records FoundNo Advanced Directives Records FoundNo Advanced Directives Records Found Additional Source Comments INFORMATION SOURCE (unrecogn ized section and content) DATE CREATED AUTHOR 10/13/2021 [facility] DATE CREATED AUTHOR AUTHOR'S ORGANIZ ATION 10/02/2022 [facility] DATE CREATED AUTHOR AUTHOR'S ORGANIZ ATION 11/27/[address] [facility] DATE CREATED AUTHOR AUTHOR'S ORGANIZ ATION 08/24/2023 [facility] EPIC Reason for Visit (unrecogniz ed section and content) Reason Onset Date Comments Medication Question 10/31/2023 Care Teams (unrecognized sec tion and content) General Accountant Relationship Specialty Start Date End Date Chastity Rodriguez MD [address] [place] [place] [address] PCP - General Family Medicine 05/03/23 FOR RECORDS PERTAINING TO PATIENTS WHO ARE [...] BE BASED ON THE PRIMARY CLINICAL RECORDS. [employer] provides no warranty or guarantee of the accuracy or completeness of information in this document.
--- NOTE | 2023-10-31 22:30 | ECG_ITS ---
The [facility] Test Date: 2023-10-31 Pat Name: SAM TOBAR Department: Room: [facility] Gender: Female Outsole Skiver: AARON: 1940 Requested By: [id number] Order Number: [id number] Reading MD: Measurements Intervals [place] Rate: 86 P: 79 [place]: 156 QRS: 69 QRSD: 72 T: 66 QT: 352 QTc: 395 Interpretive Statements 1100 Sinus rhythm 4068 Nonspecific Twave abnormality 9130 borderline ECG No previous ECG available for comparison
[2023-11-01] VITALS (11 sets, daily range): BP systolic 101–129; BP diastolic 46–82; PULSE 72–83; RESP 11–18; TEMP 36.6–37.6; O2SAT 87–99
[2023-11-01] MEDS: OXYCODONE HCL/ACETAMINOPHEN 5MG/325MG 1 TAB PO ×2 (01:46→23:19)
[2023-11-01] MEDS: 0.9 % SODIUM CHLORIDE 1,000 ML 100 ML IV (01:47)
--- NOTE | 2023-11-01 04:00 | ECG_ITS ---
The [facility] Test Date: 2023-11-01 Pat Name: SAM TOBAR Department: Room: [facility] Gender: Female Teachers' Assistant: : 1940 Requested By: CHASTITY RODRIGUEZ Order Number: [id number] Reading MD: TATA OSORIO Measurements Intervals [place] Rate: 79 P: -16 [place]: 143 QRS: 70 QRSD: 78 T: 69 QT: 375 QTc: 430 Interpretive Statements SINUS RHYTHM Compared to ECG 10/31/2023 17:35:36 No significant changes Electronically Signed On 11-01-2023 6:45:26 EST by TATA OSORIO
[2023-11-01 05:19] LABS: Basophils Percent Auto 0.3 % (0.2-2.0); Eosinophils Percent Auto 0.2 % (0.9-7.0); Hematocrit 35.1 % (36.0-48.0); Hemoglobin 11.3 g/dL (12.0-16.0); Immature Granulocytes Abs Auto 0.04 10^3/uL (0.00-0.03); Immature Granulocytes Pct Auto 0.4 % (0.0-0.5); Lymphocytes Absolute Auto 0.7 10^3/uL (1.2-3.8); Lymphocytes Percent Auto 7.2 % (20.5-60.0); Mean Corpuscular HGB Conc 32.2 g/dL (29.9-35.2); Mean Corpuscular Hemoglobin 30.7 pg (26.7-34.0); Mean Corpuscular Volume 95.4 fL (81.0-99.0); Mean Platelet Volume 9.7 fL (9.5-13.5); Monocytes Absolute Auto 1.1 10^3/uL (0.3-0.8); Monocytes Percent Auto 11.1 % (1.7-12.0); Neutrophils Absolute Auto 8.3 10^3/uL (1.4-6.5); Neutrophils Percent Auto 80.8 % (43.0-75.0); Platelet Count 226 10^3/uL (150-450); Red Blood Count 3.68 10^6/uL (4.20-5.40); Red Cell Distribution Width 13.5 % (11.0-15.0); White Blood Count 10.2 10^3/uL (4.0-11.0)
[2023-11-01 05:48] LABS: Alanine Aminotransferase 22 U/L (14-59); Albumin Globulin Ratio 0.9; Albumin Level 3.1 g/dL (3.4-5.0); Alkaline Phosphatase 56 U/L (46-116); Anion Gap 11.5; Aspartate Amino Transferase 36 U/L (15-37); BUN Creatinine Ratio 14.8; Bilirubin Total 1.6 mg/dL (0.2-1.0); Calcium 8.5 mg/dL (8.5-10.1); Carbon Dioxide 28.3 mmol/L (21.0-32.0); Chloride 104 mmol/L (98-107); Estimated GFR (African America 55 (>=60); Estimated GFR (Non-African Ame 45 (>=60); Globulin 3.3 g/dL; Glucose 104 mg/dL (74-106); Potassium 3.8 mmol/L (3.5-5.1); Sodium 140 mmol/L (136-145); Total Protein 6.4 g/dL (6.4-8.2)
[2023-11-01 05:51] LABS: INR 1.01; Prothrombin Time 10.7 sec (9.0-11.6)
--- NOTE | 2023-11-01 08:41 | CM.NOTE ---
Rounds made with Dr. Wilkins, OR today around 3:00 pm. No other needs at this time.
--- NOTE | 2023-11-01 08:55 | CM.NOTE ---
Pt and family provided with Medicare. gov 5 star rating for skilled facilities at discharge.
--- NOTE | 2023-11-01 09:18 | P.HP_ITS ---
<Statement entered by Stephen Wilkins MD - 11/02/23 05:39> This documentation has been reviewed and approved. agree with assessment and input as provided by Nurse practioner adding - Borderline elevated kidney funciton - monitor daily anemia - - possible just iron deficinecy with elevated creatinine - possible dehydration H&P: HPI History of Present Illness Chief complaint: FALL RT HIP FRACTURE NECK OF RT SHOULDER FRACTURE Narrative: 11/01/23 0920 This is an 83-year-old female patient with a past medical history as outlined below including hypothyroidism and chronic dementia; who presented to the ED yesterday afternoon after she was found at home sitting in a chair with signific ant bruising and unable to stand. The patient has caregivers through most of the day but has a 2-hour window where no caregivers are present. Family also has cameras in the home to monitor her wellbeing. She was seen on camera at 1245 ambulating to the kitchen and was doing well. She was found by a caregiver at 1500 sitting in a chair, with significant right shoulder bruising, and unable to stand and walk. Family had significant concern for unwitnessed fall and brought her to the ED for further workup. Workup in the ED revealed unremarkable CBC and BMP. Her renal function is stable at her baseline CKD 3A. As the patient's suspected fall was unwitnessed, she had extensive imaging performed in the ED. A CT of the head was negative for any acute intracranial abnormality and no fractures noted. A CT of the cervical spine was negative for acute fracture or dislocation. A Right shoulder x-ray series revealed an acute comminuted fracture of the right proximal humerus, acute fracture of the surgical neck of the right proximal humerus with 1.5 cm impaction and 1 cm anteromedial displacement, acute fracture of the greater tuberosity of the humeral head suspected without significant displacement, no glenohumeral dislocation, likely traumatic glenohumeral hemarthrosis. An x-ray of the right hip and pelvis revealed an impacted, mildly displaced right femoral neck fracture with 0.9 cm fracture fragment overlap and 1.1 cm anteromedial displacement of distal fracture fragment relative to the femoral head, no dislocation. She was admitted as an inpatient to the hospitalist service last night pending consultation with the orthopedic service for likely surgical repair of her right femoral neck fracture. Her right upper extremity was placed in a sling and is likely nonsurgical. At the time of my exam the patient is resting comfortably in bed napping. She awakens easily to voice and responds appropriately to questions. She is alert and oriented to self and place, but not time, and has no real memory of the events of yesterday afternoon and evening. She is a poor historian and cannot give any history of her fall or even remember falling at all. She denies significant pain of the right shoulder or the right hip while lying still in bed. The family denies any recent changes in medication, other than a brief trial of Seroquel to help with sleep that was discontinued d/t paradoxical nighttime wakefulness/agitation. They have not noted recent issues with dizziness, chest pain, sob, or palpitations. It is unknown if the pt had any prodromal symptoms leading to her fall. They have noted a recent worsening of her confusion/dementia with new development of hallucinations in the last 2 weeks. She was seen in the ED on 10/23/23 d/t these symptoms as they were c oncerned for a possible UTI. Work up at that visit was unremarkable and she was discharged home. Her Seroquel was discontinued by her PCP right after that ED visit. The pt has been NPO since midnight pending ORIF of her R hip later this afternoon per Dr Weiss. She is medically stable for surgery. Her code status was discussed at length with her DPOA daughter at the bedside and a copy of her living will was reviewed. She has been made a DNR CCA per this discussion with full agreement by the DPOA. Review of Systems ROS Status of ROS 10 or more systems reviewed and unremark able except as noted in history and below [facility] Medical History (Updated 11/01/23 @ 12:49 by Carlita Lewis NP) Underweight ?R63.6 - Underweight (ICD-10) OAB (overactive bladder) ?N32.81 - Overactive bladder (ICD-10) Dementia ?F03.90 - Unspecified dementia, unspecified severity, without behavioral disturbance, psychotic disturbance, mood disturbance, and anxiety (ICD-10) Hypothyroid ?E03.9 - Hypothyroidism, unspecified (ICD-10) Surgical History (Updated 10/31/23 @ 21:00 by Ruma Reddy RN) History of hysterectomy ?Z90.710 - Acquired absence of both cervix and uterus (ICD-10) Family History (Updated 10/31/23 @ 21:02 by Ruma Reddy RN) Mother Family history of cancer Father Family history of cancer Sister Family history of cancer Social History (Updated 10/31/23 @ 21:03 by Ruma Reddy RN) Within the past year, how often did you have a drink containing alcohol: never Score interpretation: A score less than 3 is consistent with normal alcohol consumption. Smoking status: Never smoker Non-prescribed substance use: denies use Previous occupational history: cleaning Highest level of school completed/degree received: high school graduate Are you now , , , , never or living with a partner: In a typical week, how many times do you talk on the telephone with family, friends, or neighbors: 3 or more times per week How often do you get together with friends or relatives: 3 or more times per week How often do you attend protestant or cheondoism services: 1-3 times per year Do you belong to any clubs or organizations such as protestant groups unions, [employer] or athletic groups, or school groups: no Total score: 1 Score interpretation: A score of less than or equal to 1 indicates the most socially isolated. Little interest or pleasure in doing things: not at all Feeling down, depressed, or hopeless: not at all Feel stressed/tense/nervous/anxious/difficulty sleeping: not at all Do you think of yourself as: straight/heterosexual Gender Identity: female Meds Home Medications and Allergies Home Medications Medication Instructions Recorded Confirmed Type levothyroxine 25 mcg tablet 25 mcg PO DAILY 10/31/23 10/31/23 History oxybutynin chloride 5 mg 5 mg PO DAILY 10/31/23 10/31/23 History tablet,extended release 24 hr oxycodone-acetaminophen 5 mg-325 1 tab PO Q8H 10/31/23 10/31/23 History mg tablet paroxetine HCl 10 mg tablet 10 mg PO DAILY 10/31/23 10/31/23 History Allergies Allergy/AdvReac Type Severity Reaction Status Date / Time Penicillins AdvReac Mild Verified 10/31/23 17:26 Exam Constitutional Vital Signs, click to edit/add: Last Vital Signs Temp 98.9 F 11/01/23 04:40 Pulse 79 11/01/23 04:40 Resp 18 11/01/23 04:40 BP 101/67 11/01/23 04:40 Pulse Ox 91 L 11/01/23 04:40 O2 Del Method Room Air 11/01/23 04:40 Common normals: no apparent distress and alert General appearance: cooperative and comfortable Nutritional appearance: underweight Orientation/consciousness: Yes awake, Yes oriented to person, Yes oriented to place and Yes confused; not oriented to time Other: No recall of recent events HENMT Common normals: normocephalic, head/scalp atraumatic, hearing grossly normal bilaterally, external nose normal and moist oral mucous membranes Eye Common normals: PERRL, EOMs intact bilaterally, conjunctivae normal and no scleral icterus Alignment: alignment normal Eyelid: eyelids normal Chest Common normals: inspection of chest normal Chest: symmetrical chest wall rise Respiratory Common normals: normal respiratory effort, no retractions, no use of accessory muscles and clear to auscultation bilaterally Effort & inspection: able to speak in complete sentences Cardio Common normals: no JVD, regular rate, regular rhythm, S1 normal heart sound, no gallops, no clicks, no murmurs, no rub and peripheral pulses 2+ throughout Heart sounds: other (S2 snap, equivocal intermittent split) GI Common normals: Normal to inspection, nondistended, normoactive bowel sounds present, soft to palpation, non-tender, no hepatosplenomegaly, no masses and no bruits Bladder/kidney exam: bladder normal to palpation Back & Pelvis Common normals: thoracic and lumbar spine normal to inspection Extremity Common normals: normal capillary refill and no pedal edema General: normal exam except as noted; no clubbing and no cyanosis Right upper extremity: shoulder joint (Tender, bruised) Right shoulder joint exam: ROM (In sling, no ROM at this time) Right lower extremity: hip joint Right hip: ROM (Painful with any movement 2/2 f x) Neuro Ucon Coma Scale: GCS not evaluated Common normals: CN's II-XII intact bilaterally, moves all extremities, no focal motor deficits and no sensory deficits noted Speech: speech normal Motor exam: strength 5/5 throughout Psych Common normals: thought process normal, affect normal and activity/motor behavior normal Results Labs Labs: Short CBC 10/31/23 11/01/23 Range/Units 17:48 04:45 WBC 10.5 10.2 (4.0-11.0) 10^3/uL Hgb 12.9 11.3 L (12.0-16.0) g/dL Hct 38.8 35.1 L (36.0-48.0) % Plt Count 232 226 (150-450) 10^3/uL BMP 10/31/23 11/01/23 17:48 04:45 Sodium 141 140 Potassium 3.8 3.8 Chloride 103 104 Carbon Dioxide 27.4 28.3 BUN 17.0 17.0 Creatinine 1.22 H 1.15 H Glucose 143 H 104 Calcium 9.3 8.5 Liver Function 11/01/23 Range/Units 04:45 Total Bilirubin 1.6 H (0.2-1.0) mg/dL AST 36 (15-37) U/L ALT 22 (14-59) U/L Alkaline Phosphatase 56 (46-116) U/L Albumin 3.1 L (3.4-5.0) g/dL Pulse Oximetry Attestation: I have reviewed the pertinent pulse oximetry results. Imaging CT scan - head: Attestation: I have reviewed the pertinent imaging results. Radiologist's impression: IMPRESSION: No acute intracranial process is identified. No acute fracture. CT Cervical Spine: Attestation: I have reviewed the pertinent imaging results. Radiologist's impression: IMPRESSION: No acute intracranial process is identified. No acute fracture. R Shoulder XR: Attestation: I have reviewed the pertinent imaging results. Radiologist's impression: FINDINGS/IMPRESSION: 1. Acute comminuted fracture of the right proximal humerus. 2. Acute fracture of the surgical neck of the right proximal humerus demonstrating approximately 1.5 cm impaction and 1 cm anteromedial displacement. 3. Acute fracture of the greater tuberosity of the humeral head suspected without significant displacement. 4. No glenohumeral dislocation. Likely traumatic glenohumeral hemarthrosis. 5. Moderate degenerative change right AC joint. 6. Osteopenia. R Hip/Pelvis XR: Attestation: I have reviewed the pertinent imaging results. Radiologist's impression: FINDINGS and impression: Impacted, mildly displaced fracture of right femoral neck with 0.9 cm fracture fragments overlap and 1.1 cm anteromedial displacement of distal fracture fragment relative to the femoral head. There is no dislocation. CT of the hip is recommended for better evaluation. Assessment and Plan Assessment and Plan (1) Closed fracture of neck of right femur: Assessment and Plan: ACUTE * Adm inpatient * Impacted, mildly displaced fx of the R femoral neck 2/2 suspected unwitnessed fall. * C/S Dr Weiss - we appreciate his assistance with this pt's care * ORIF planned for later this afternoon - pt is NPO pending surgery * Very low (0.4%) cardiac preop risk (Revised Antonio Criteria Index). Medically stable for surgery. * PRN Percocet PO, or IVP Morphine for breakthrough pain * Pt denies significant pain and is not overly sedated * LR IVF at 85 ml/hr for gentle, weight based hydration. Consider faster rate if urine output is low. * Place Lamb catheter d/t prolonged immobilization * CBC, CMP daily to monitor status post op (2) Fracture of right shoulder: Assessment and Plan: ACUTE * Non-surgical fx * Maintain RUE sling and NWB status * C/S Dr Weiss for recommendations and follow up * Plan d/c to SNF for rehab strengthening (3) Fall: Assessment and Plan: ACUTE * Suspected, unwitnessed * Unclear if prodromal sx preceded fall, but clinically not suspected at this time (4) Dementia: Assessment and Plan: CHRONIC * Not on any dementia medications at baseline * Recently failed trial of Seroquel at HS d/t paradoxical reaction * Slight worsening in symptoms w/ onset of intermittent hallucinations * Unclear if this represents general mental decline or an acute process * Recent work up in ED neg including UA. Repeat UA today to definitively r/o UTI * Fall alarms on at all times - high fall risk (5) OAB (overactive bladder): Assessment and Plan: CHRONIC * Hold home oxybutynin for now d/t Lamb catheter (risk for urinary retention when discontinued) (6) Hypothyroid: Assessment and Plan: CHRONIC * Continue home levothyroxine * Check TSH in AM (7) Underweight: Assessment and Plan: CHRONIC * Suspect mild to moderate protein zenon malnutrition * Advisory Software Engineer c/s
[2023-11-01] MEDS: LACTATED RINGER'S SOLUTION 1,000 ML 85 ML IV (10:03)
--- NOTE | 2023-11-01 10:19 | SWNOTE1 ---
MARÍA met with pt's daughter and son in law in room. They have reviewed list from medicare.gov and they would like [place] first and if they can't accommodate then [facility]. MARÍA sent referral to [facility]. Referral included face sheet, ER note, labs, diagnostic imaging, med list, and nursing notes. Will send H&P and therapy notes once documented. Family is potentially looking in to termite renewal inspector after rehab as well. SW to let [facility] know.
[2023-11-01] MEDS: MORPHINE SULFATE 2 MG/ML SYRINGE IV (10:54)
--- NOTE | 2023-11-01 10:54 | CM.NOTE ---
Important Message From Medicare discussed with pt and children at bedside. Both verbalize understanding and pt's daughter signs paper. Original given to pt and copy placed on pt's chart.
[2023-11-01 13:24] LABS: Bilirubin Urine NEGATIVE (NEGATIVE); Blood Urine TRACE-I (NEGATIVE); Clarity Urine CLEAR (CLEAR); Color Urine YELLOW (YELLOW); Glucose Urine UA NEGATIVE (NEGATIVE); Ketones Urine 40 mg/dL (NEGATIVE); Leukocyte Esterase Urine NEGATIVE (NEGATIVE); Nitrite Urine NEGATIVE (NEGATIVE); Protein Urine NEGATIVE (NEG/TRACE); Specific Gravity Urine 1.025 (1.005-1.025); Urobilinogen Urine 0.2 EU/dL (0.2-1.0)
[2023-11-01 13:38] LABS: Bacteria Urine TRACE #/HPF (NONE SEEN); Cast Seen? NONE SEEN #/LPF (NONE SEEN); Crystals Seen? None Seen #/HPF (None Seen); Mucus Urine NONE SEEN (NONE SEEN); Squamous Epithelial Cell Urine RARE #/LPF (NONE/RARE); Urine Culture Indicated ALREADY ORDERED; WBC Urine 0-2 #/HPF (NONE SEEN)
--- NOTE | 2023-11-01 15:13 | PC.NURSE ---
TIME OUT PERFORMED AT [address] TRAN. PATIENT WAS PREPPED AND POSITIONED. DR CLEANSED AREA AND LOCATED AREA OF BLOCK TO BE NSERTED WITH ULTRASOUND. PHOTO WAS TAKEN AND PHYSICIAN PROCEEDED WITH BLOCK. PROCEDURE COMPLETED AT 1508 PATIENT TOLERATED WELL.
--- NOTE | 2023-11-01 15:26 | SWNOTE1 ---
[facility] is able to accept when ready for dc. SW notified nursing and pt's family.
--- NOTE | 2023-11-01 15:34 | PM.ORCN ---
History of Present Illness HPI Consult date: 11/01/23 Consult reason: fracture (Right hip fracture and right shoulder fracture) Chief complaint: FALL RT HIP FRACTURE NECK OF RT SHOULDER FRACTURE Narrative: Patient is an 83-year-old lady with history of advanced dementia. She had an unwitnessed fall yesterday at home. She was found by family and ultimately brought to the emergency room where workup revealed a right femoral neck fracture and a right shoulder fracture. Patient was admitted for treatment of her injuries. At baseline she is a household ambulator without assistive devices. Review of Systems ROS Status of ROS 10 or more systems reviewed and unremarkable except as noted in history and below [facility] Medical History (Updated 11/01/23 @ 12:49 by Carlita Lewis NP) Underweight ?R63.6 - Underweight (ICD-10) OAB (overactive bladder) ?N32.81 - Overactive bladder (ICD-10) Dementia ?F03.90 - Unspecified dementia, unspecified severity, without behavioral disturbance, psychotic disturbance, mood disturbance, and anxiety (ICD-10) Hypothyroid ?E03.9 - Hypothyroidism, unspecified (ICD-10) Surgical History (Updated 10/31/23 @ 21:00 by Ruma Reddy RN) History of hysterectomy ?Z90.710 - Acquired absence of both cervix and uterus (ICD-10) Family History (Updated 10/31/23 @ 21:02 by Ruma Reddy RN) Mother Family history of cancer Father Family history of cancer Sister Family history of cancer Social History (Updated 10/31/23 @ 21:03 by Ruma Reddy RN) Within the past year, how often did you have a drink containing alcohol: never Score interpretation: A score less than 3 is consistent with normal alcohol consumption. Smoking status: Never smoker Non-prescribed substance use: denies use Previous occupational history: cleaning Highest level of school completed/degree received: high school graduate Are you now , , , , never or living with a partner: In a typical week, how many times do you talk on the telephone with family, friends, or neighbors: 3 or more times per week How often do you get together with friends or relatives: 3 or more times per week How often do you attend christianity or anglican services: 1-3 times per year Do you belong to any clubs or organizations such as christianity groups unions, fraternal or athletic groups, or school groups: no Total score: 1 Score interpretation: A score of less than or equal to 1 indicates the most socially isolated. Little interest or pleasure in doing things: not at all Feeling down, depressed, or hopeless: not at all Feel stressed/tense/nervous/anxious/difficulty sleeping: not at all Do you think of yourself as: straight/heterosexual Gender Identity: female Meds Home Medications and Allergies Home Medications Medication Instructions Recorded Confirmed Type levothyroxine 25 mcg tablet 25 mcg PO DAILY 10/31/23 10/31/23 History oxybutynin chloride 5 mg 5 mg PO DAILY 10/31/23 10/31/23 History tablet,extended release 24 hr oxycodone-acetaminophen 5 mg-325 1 tab PO Q8H 10/31/23 10/31/23 History mg tablet paroxetine HCl 10 mg tablet 10 mg PO DAILY 10/31/23 10/31/23 History Allergies Allergy/AdvReac Type Severity Reaction Status Date / Time Penicillins AdvReac Mild Verified 10/31/23 17:26 Exam Narrative Exam Narrative: Examination today she is in no obvious distress. Right thigh is swollen but soft. Skin is intact. No tenderness in the right knee or right ankle. Grossly distal neurovascular intact. Right shoulder exam reveals moderate swelling and ecchymosis. Skin is intact. Grossly distal neurovascular intact. Constitutional Vital Signs, click to edit/add: Last Vital Signs Temp 99.7 F 11/01/23 14:27 Pulse 72 11/01/23 14:27 Resp 18 11/01/23 14:27 BP 115/62 11/01/23 14:27 Pulse Ox 94 L 11/01/23 14:27 O2 Del Method Room Air 11/01/23 14:27 Results Labs Labs: Abnormal lab results 10/31/23 11/01/23 11/01/23 Range/Units 17:48 04:45 12:40 RBC 4.14 L 3.68 L (4.20-5.40) 10^6/uL Hgb 11.3 L (12.0-16.0) g/dL Hct 35.1 L (36.0-48.0) % MPV 9.4 L (9.5-13.5) fL Neut % (Auto) 90.3 H 80.8 H (43.0-75.0) % Lymph % (Auto) 3.2 L 7.2 L (20.5-60.0) % Eos % (Auto) 0.0 L 0.2 L (0.9-7.0) % Neut # (Auto) 9.5 H 8.3 H (1.4-6.5) 10^3/uL Lymph # (Auto) 0.3 L 0.7 L (1.2-3.8) 10^3/uL [place] # (Auto) 1.1 H (0.3-0.8) 10^3/uL Abs Immat Gran (auto) 0.04 H (0.00-0.03) 10^3/uL Creatinine 1.22 H 1.15 H (0.55-1.02) mg/dL Est GFR ( Amer) 51 L 55 L (>=60) Est GFR (Non-Af Amer) 42 L 45 L (>=60) Glucose 143 H (74-106) mg/dL Total Bilirubin 1.6 H (0.2-1.0) mg/dL Albumin 3.1 L (3.4-5.0) g/dL Urine Ketones 40 A (NEGATIVE) mg/dL Urine RBC 2-5 A (0-2) #/HPF Urine WBC 0-2 A (NONE SEEN) #/HPF Urine Bacteria Trace A (NONE SEEN) #/HPF H & H 10/31/23 11/01/23 Range/Units 17:48 04:45 Hgb 12.9 11.3 L (12.0-16.0) g/dL Hct 38.8 35.1 L (36.0-48.0) % Coagulation 10/31/23 11/01/23 Range/Units 17:48 04:45 INR 0.99 1.01 All other labs normal. Diagnostic results Shoulder x-ray: image reviewed (X-rays show a displaced proximal humerus fracture.) Hip x-ray: image reviewed (Right hip x-rays reveal valgus impacted femoral neck fracture) Assessment and Plan Assessment and Plan (1) Closed fracture of neck of right femur: Assessment and Plan: I have discussed treatment recommendations with the patient's family and have recommended a right hip internal fixation. I discussed risks of this injury and procedure including but limited to chronic pain, loss of fixation and need for future surgery and loss of life. We have gone through additional risks and the informed consent process which they understand and have elected to proceed with. (2) Fracture of right shoulder: Assessment and Plan: Her right proximal humerus fracture we will treat conservatively in a sling. (3) Fall: (4) Dementia: (5) OAB (overactive bladder): (6) Hypothyroid: (7) Underweight:
--- NOTE | 2023-11-01 16:51 | FL_ITS ---
[address] [address] Patient Name: SAM TOBAR MRN: [id number] date: 1940 Sex: F Assigned Patient Location: [place] Current Patient Location: [place] Accession/Order Number: [id number] Exam Date: 11/01/2023 15:50 Report Date: 11/02/2023 08:23 At the request of: CRYS BEAN Procedure: FL fluoroscopy <1hr NON-READ EXAM: FL fluoroscopy <1hr NON-READ HISTORY: TECHNIQUE: FINDINGS: Please see Operative Report. Electronically authenticated by: RADIOLOGIST NO Date: 11/02/2023 08:23
[2023-11-01] MEDS: LACTATED RINGER'S SOLUTION 1,000 ML 50 ML IV (17:06)
--- NOTE | 2023-11-01 17:21 | PM.ORPRC ---
Procedure Note Date of procedure: 11/01/23 Pre-op diagnosis: Femoral neck fracture, right Post-op diagnosis: same as pre-op Procedure: Operation: Open reduction internal fixation right femoral neck fracture using Synthes femoral neck system Operative procedure: After informed consent was obtained the patient was brought to the operating room where general anesthetic was administered. Patient was placed on the fracture table and x-rays in the AP and lateral planes revealed a valgus impacted femoral neck fracture. The right hip was prepped and draped in the usual sterile fashion. A 4 cm incision was made just distal to the greater trochanter in line with the femur. Fascia was incised in line with the incision. Vastus lateralis was elevated off of the proximal femur. The guidepin for the Synthes femoral neck system was placed and x-rays confirmed appropriate position. This was measured and then overreamed and a 2 hole Synthes femoral neck system plate and bolt were placed. Appropriate position was achieved on the AP and lateral planes. Using the guide of the distal 2 locking screws were placed and then the antirotation screw was placed in the standard fashion and the femoral head. Final x-rays in multiple planes revealed a reduced femoral neck fracture with appropriate implant placement and lengths. Wound was irrigated. Fascia was closed with a #2 FiberWire suture. Skin was closed with absorbable suture in a subcutaneous fashion and lacy. Sterile dressing was placed. Patient was awakened and brought to the recovery room in stable condition. There were no intraoperative or immediate postoperative complications. Anesthesia: GETA and regional Surgeon: Aristides Weiss Estimated blood loss (mL): 20 Pathology: none sent Condition: stable Disposition: PACU
[2023-11-01] MEDS: LEVOTHYROXINE SODIUM 25 MCG TABLET PO (17:58)
[2023-11-01] MEDS: PAROXETINE HCL 20 MG TABLET 10 MG PO (17:58)
[2023-11-01] MEDS: CEFAZOLIN SODIUM/DEXTROSE,ISO 2 GM/50 ML PIGGYBACK IV (23:21)
--- NOTE | 2023-11-02 03:05 | PC.NURSE ---
Patient repeatedly removing scd's. Removed for comfort.
[2023-11-02] MEDS: MORPHINE SULFATE 2 MG/ML SYRINGE IV (04:21)
[2023-11-02 05:01] VITALS: BP 110/63; PULSE 75; RESP 18; TEMP 36.8; O2SAT 90
[2023-11-02 05:34] LABS: Basophils Percent Auto 0.1 % (0.2-2.0); Hematocrit 32.3 % (36.0-48.0); Hemoglobin 10.5 g/dL (12.0-16.0); Immature Granulocytes Abs Auto 0.05 10^3/uL (0.00-0.03); Immature Granulocytes Pct Auto 0.4 % (0.0-0.5); Lymphocytes Absolute Auto 0.3 10^3/uL (1.2-3.8); Lymphocytes Percent Auto 2.3 % (20.5-60.0); Mean Corpuscular HGB Conc 32.5 g/dL (29.9-35.2); Mean Corpuscular Hemoglobin 30.4 pg (26.7-34.0); Mean Corpuscular Volume 93.6 fL (81.0-99.0); Mean Platelet Volume 9.8 fL (9.5-13.5); Monocytes Absolute Auto 0.8 10^3/uL (0.3-0.8); Monocytes Percent Auto 6.5 % (1.7-12.0); Neutrophils Absolute Auto 10.8 10^3/uL (1.4-6.5); Neutrophils Percent Auto 90.7 % (43.0-75.0); Platelet Count 175 10^3/uL (150-450); Red Blood Count 3.45 10^6/uL (4.20-5.40); Red Cell Distribution Width 13.2 % (11.0-15.0); White Blood Count 11.9 10^3/uL (4.0-11.0)
[2023-11-02 06:00] LABS: Alanine Aminotransferase 27 U/L (14-59); Albumin Globulin Ratio 0.8; Albumin Level 2.7 g/dL (3.4-5.0); Alkaline Phosphatase 49 U/L (46-116); Anion Gap 11.6; Aspartate Amino Transferase 48 U/L (15-37); BUN Creatinine Ratio 14.8; Bilirubin Total 0.7 mg/dL (0.2-1.0); Calcium 8.2 mg/dL (8.5-10.1); Carbon Dioxide 28.4 mmol/L (21.0-32.0); Chloride 103 mmol/L (98-107); Estimated GFR (African America 55 (>=60); Estimated GFR (Non-African Ame 45 (>=60); Globulin 3.2 g/dL; Glucose 141 mg/dL (74-106); Sodium 139 mmol/L (136-145); Total Protein 5.9 g/dL (6.4-8.2)
--- NOTE | 2023-11-02 07:24 | PM.ORPN ---
Progress Note: A&P Assessment and Plan (1) Closed fracture of neck of right femur: Assessment and Plan: Postoperative day #1 from right hip ORIF Physical therapy DVT prophylaxis adequate pain control (2) Fracture of right shoulder: Assessment and Plan: Continue sling and nonweightbearing. Nonoperative treatment (3) Fall: (4) Dementia: (5) OAB (overactive bladder): (6) Hypothyroid: (7) Underweight: Subjective Subjective Interval history: Denies pain Exam Narrative Exam Narrative: Patient is in no distress. Right thigh has mild swelling. Skin is intact. No ecchymosis. Wiggles toes. Good capillary refill. Right shoulder is moderately swollen. Mild ecchymosis. Palpable radial pulse Constitutional Vital Signs, click to edit/add: Last Vital Signs Temp 98.2 F 11/02/23 05:01 Pulse 75 11/02/23 05:01 Resp 18 11/02/23 05:01 BP 110/63 11/02/23 05:01 Pulse Ox 90 L 11/02/23 05:01 O2 Del Method Room Air 11/02/23 05:01 O2 Flow Rate 2 11/01/23 17:27 Urinary Catheter Management Urinary Catheter Management Urethral: Cath placed during this visit: yes Urethral indwelling: Yes Reason for continuing: surgical procedure Insertion date: 11/01/23 Insertion time: 11:18
[2023-11-02 08:08] VITALS: O2SAT 100
--- NOTE | 2023-11-02 09:21 | P.PN_ITS ---
<Statement entered by Stephen Wilkins MD - 11/02/23 19:14> This documentation has been reviewed and approved. Patient was seen and evaluated this morning. Very confused this morning. Unable to complete full sentences secondary to the confusion. She was convinced she was answering. This is likely since it was early in the a.m. on top of her dementia on top of recent anesthesia with altered mental status resulting from metabolic encephalopathy Agree with input and findings from nurse practitioner including physical examination Had a diagnosis of leukocytosis this morning, continue to monitor Moderate protein calorie malnutrition-consider supplementation Significant anemia postoperative with acute blood loss anemia secondary to surgical intervention Progress Note: Subjective Subjective Interval history: 11/02/23 0910 The patient is postop day #1 from a right hip nailing performed by Dr. Weiss yesterday. She is resting in bed but is much more confused and agitated than on admission. She is hallucinating and her conversation is mostly nonsense words. She has pulled out her Lamb catheter prior to my entrance and the catheter is lying on her lap. The balloon is not inflated and may have popped during removal. She does answer some questions appropriately and is cooperative with exam. She is very awake, but alert to self only. We suspect that this is likely secondary to anesthesia administration yesterday and should slowly resolve. Otherwise, her postoperative course has been unremarkable. She denies pain at rest, but does wince with repositioning in bed. Exam Constitutional Vital Signs, click to edit/add: Last Vital Signs Temp 98.2 F 11/02/23 05:01 Pulse 75 11/02/23 05:01 Resp 18 11/02/23 05:01 BP 110/63 11/02/23 05:01 Pulse Ox 100 11/02/23 08:08 O2 Del Method Room Air 11/02/23 05:01 O2 Flow Rate 2 11/01/23 17:27 Common normals: no apparent distress and alert General appearance: cooperative Orientation/consciousness: Yes awake HENMT Common normals: normocephalic, head/scalp atraumatic and hearing grossly normal bilaterally Eye Common normals: PERRL, EOMs intact bilaterally and conjunctivae normal General eye: normal appearance of both eyes Chest Common normals: inspection of chest normal Chest: symmetrical chest wall rise Respiratory Common normals: normal respiratory effort, no use of accessory muscles and clear to auscultation bilaterally Effort & inspection: able to speak in complete sentences Cardio Common normals: regular rate, regular rhythm, S1 normal heart sound, S2 normal heart sound, no murmurs and peripheral pulses 2+ throughout GI Common normals: Normal to inspection, nondistended, normoactive bowel sounds present, soft to palpation, non-tender and no hepatosplenomegaly Bladder/kidney exam: bladder normal to palpation Extremity Common normals: normal to inspection and no calf tenderness General: no clubbing and no cyanosis Right upper extremity: shoulder joint (Sling remains in place) Right lower extremity: upper leg (Post op drsg D&I) Neuro Common normals: CN's II-XII intact bilaterally, moves all extremities, no focal motor deficits and no sensory deficits noted Psych Appearance: grossly normal Activity/motor behavior: psychomotor agitation Speech: excessive Mood and affect: euthymic mood Thought process: disorganized, confused and flight of ideas Thought content: hallucination(s) and compulsion(s) Attention/concentration: attention grossly impaired and concentration grossly impaired Memory/cognition: memory grossly impaired and cognition grossly impaired Insight: poor Judgement: poor Progress Note: Objective Labs Labs: Short CBC 11/02/23 Range/Units 04:33 WBC 11.9 H (4.0-11.0) 10^3/uL Hgb 10.5 L (12.0-16.0) g/dL Hct 32.3 L (36.0-48.0) % Plt Count 175 (150-450) 10^3/uL BMP 11/02/23 04:33 Sodium 139 Potassium 4.0 Chloride 103 Carbon Dioxide 28.4 BUN 17.0 Creatinine 1.15 H Glucose 141 H Calcium 8.2 L Liver Function 11/02/23 Range/Units 04:33 Total Bilirubin 0.7 (0.2-1.0) mg/dL AST 48 H (15-37) U/L ALT 27 (14-59) U/L Alkaline Phosphatase 49 (46-116) U/L Albumin 2.7 L (3.4-5.0) g/dL Urine 11/01/23 Range/Units 12:40 Urine Color Yellow (YELLOW) Urine Clarity Clear (CLEAR) Urine pH 6.0 (5.0-9.0) Ur Specific [place] 1.025 (1.005-1.025) Urine Protein Negative (NEG/TRACE) mg/dL Urine Glucose (UA) Negative (NEGATIVE) mg/dL Progress Note: A&P Assessment and Plan (1) Closed fracture of neck of right femur: Assessment and Plan: ACUTE * Impacted, mildly displaced fx of the R femoral neck 2/2 suspected unwitnessed fall. * POD#1 for R femur nailing per Dr Weiss on 11/01/23 * Post op course unremarkable except for acute delirium * Continue PRN Percocet PO, or IVP Morphine for breakthrough pain * Pt denies significant pain and is not overly sedated * Consider changing pain meds if delirium persists * Continue NS IVF at 50 ml/hr per post op orders * Adequate urine output overnight * Likely d/c once pt is more oriented and eating and drinking well * CBC, CMP daily to monitor status post op (2) Fracture of right shoulder: Assessment and Plan: ACUTE * Non-surgical fx * Maintain RUE sling and NWB status * C/S Dr Weiss for recommendations and follow up * Plan d/c to SNF for rehab strengthening (3) Acute metabolic encephalopathy: Assessment and Plan: ACUTE * W/ global cerebral dysfunction * On chronic dementia at baseline * Suspect 2/2 anesthesia during surgery * Narcotic SE not highly suspected d/t infrequent administration and lack of sedation, but remains possible * Consider changing Percocet to Tramadol pending clinical course * Last MS IVP dose at 0420 today - consider discontinuing pending clinical course * Bed alarms on at all times * Nursing to consider asking family to come sit with the pt to assist with her disorientation/delirium (4) Fall: Assessment and Plan: ACUTE * Suspected, unwitnessed * Unclear if prodromal sx preceded fall, but clinically not suspected * See acute fractures above (5) Dementia: Assessment and Plan: CHRONIC * Not on any dementia medications at baseline * Recently failed trial of Seroquel at HS d/t paradoxical reaction * Slight worsening in symptoms w/ onset of intermittent hallucinations * Unclear if this represents general mental decline or an acute process * Recent work up in ED neg including UA. * Repeat UA 11/01/13 remains neg * Fall alarms on at all times - high fall risk (6) CKD (chronic kidney disease) stage 3, GFR 30-59 ml/min: Assessment and Plan: CHRONIC * Baseline CKD3 * Per historical labwork: Cr 1.05-1.34. GFR 46-52 * Renal fx remains at baseline * Monitor w/ CMP daily (7) OAB (overactive bladder): Assessment and Plan: CHRONIC * Hold home oxybutynin for now d/t Lamb catheter insertion (risk for urinary retention when discontinued) * Resume when clinically indicated (8) Hypothyroid: Assessment and Plan: CHRONIC * Continue home levothyroxine * Check TSH in AM (9) Underweight: Assessment and Plan: CHRONIC * Suspect mild to moderate protein zenon malnutrition * Election Watcher c/s Urinary Catheter Management Urinary Catheter Management Urethral: Cath placed during this visit: yes Urethral indwelling: Yes Reason for continuing: decision to DC catheter Insertion date: 11/01/23 Insertion time: 11:18
--- NOTE | 2023-11-02 09:21 | PM.PN ---
Progress Note: Subjective Subjective Interval history: 11/02/23 0910 The patient is postop day #1 from a right hip nailing performed by Dr. Weiss yesterday. She is resting in bed but is much more confused and agitated than on admission. She is hallucinating and her conversation is mostly nonsense words. She has pulled out her Lamb catheter prior to my entrance and the catheter is lying on her lap. The balloon is not inflated and may have popped during removal. She does answer some questions appropriately and is cooperative with exam. She is very awake, but alert to self only. We suspect that this is likely secondary to anesthesia administration yesterday and should slowly resolve. Otherwise, her postoperative course has been unremarkable. She denies pain at rest, but does wince with repositioning in bed. Exam Constitutional Vital Signs, click to edit/add: Last Vital Signs Temp 98.2 F 11/02/23 05:01 Pulse 75 11/02/23 05:01 Resp 18 11/02/23 05:01 BP 110/63 11/02/23 05:01 Pulse Ox 100 11/02/23 08:08 O2 Del Method Room Air 11/02/23 05:01 O2 Flow Rate 2 11/01/23 17:27 Common normals: no apparent distress and alert General appearance: cooperative Orientation/consciousness: Yes awake [facility] Common normals: normocephalic, head/scalp atraumatic and hearing grossly normal bilaterally Eye Common normals: PERRL, EOMs intact bilaterally and conjunctivae normal General eye: normal appearance of both eyes Chest Common normals: inspection of chest normal Chest: symmetrical chest wall rise Respiratory Common normals: normal respiratory effort, no use of accessory muscles and clear to auscultation bilaterally Effort & inspection: able to speak in complete sentences Cardio Common normals: regular rate, regular rhythm, S1 normal heart sound, S2 normal heart sound, no murmurs and peripheral pulses 2+ throughout GI Common normals: Normal to inspection, nondistended, normoactive bowel sounds present, soft to palpation, non-tender and no hepatosplenomegaly Bladder/kidney exam: bladder normal to palpation Extremity Common normals: normal to inspection and no calf tenderness General: no clubbing and no cyanosis Right upper extremity: shoulder joint (Sling remains in place) Right lower extremity: upper leg (Post op drsg D&I) Neuro Common normals: CN's II-XII intact bilaterally, moves all extremities, no focal motor deficits and no sensory deficits noted Psych Appearance: grossly normal Activity/motor behavior: psychomotor agitation Speech: excessive Mood and affect: euthymic mood Thought process: disorganized, confused and flight of ideas Thought content: hallucination(s) and compulsion(s) Attention/concentration: attention grossly impaired and concentration grossly impaired Memory/cognition: memory grossly impaired and cognition grossly impaired Insight: poor Judgement: poor Progress Note: Objective Labs Labs: Short CBC 11/02/23 Range/Units 04:33 WBC 11.9 H (4.0-11.0) 10^3/uL Hgb 10.5 L (12.0-16.0) g/dL Hct 32.3 L (36.0-48.0) % Plt Count 175 (150-450) 10^3/uL BMP 11/02/23 04:33 Sodium 139 Potassium 4.0 Chloride 103 Carbon Dioxide 28.4 BUN 17.0 Creatinine 1.15 H Glucose 141 H Calcium 8.2 L Liver Function 11/02/23 Range/Units 04:33 Total Bilirubin 0.7 (0.2-1.0) mg/dL AST 48 H (15-37) U/L ALT 27 (14-59) U/L Alkaline Phosphatase 49 (46-116) U/L Albumin 2.7 L (3.4-5.0) g/dL Urine 11/01/23 Range/Units 12:40 Urine Color Yellow (YELLOW) Urine Clarity Clear (CLEAR) Urine pH 6.0 (5.0-9.0) Ur Specific [place] 1.025 (1.005-1.025) Urine Protein Negative (NEG/TRACE) mg/dL Urine Glucose (UA) Negative (NEGATIVE) mg/dL Progress Note: A&P Assessment and Plan (1) Closed fracture of neck of right femur: Assessment and Plan: ACUTE Impacted, mildly displaced fx of the R femoral neck 2/2 suspected unwitnessed fall. POD#1 for R femur nailing per Dr Weiss on 11/01/23 Post op course unremarkable except for acute delirium Continue PRN Percocet PO, or IVP Morphine for breakthrough pain Pt denies significant pain and is not overly sedated Consider changing pain meds if delirium persists Continue NS IVF at 50 ml/hr per post op orders Adequate urine output overnight Likely d/c once pt is more oriented and eating and drinking well CBC, CMP daily to monitor status post op (2) Fracture of right shoulder: Assessment and Plan: ACUTE Non-surgical fx Maintain RUE sling and NWB status C/S Dr Weiss for recommendations and follow up Plan d/c to SNF for rehab strengthening (3) Acute metabolic encephalopathy: Assessment and Plan: ACUTE W/ global cerebral dysfunction On chronic dementia at baseline Suspect 2/2 anesthesia during surgery Narcotic SE not highly suspected d/t infrequent administration and lack of sedation, but remains possible Consider changing Percocet to Tramadol pending clinical course Last MS IVP dose at 0420 today - consider discontinuing pending clinical course Bed alarms on at all times Nursing to consider asking family to come sit with the pt to assist with her disorientation/delirium (4) Fall: Assessment and Plan: ACUTE Suspected, unwitnessed Unclear if prodromal sx preceded fall, but clinically not suspected See acute fractures above (5) Dementia: Assessment and Plan: CHRONIC Not on any dementia medications at baseline Recently failed trial of Seroquel at HS d/t paradoxical reaction Slight worsening in symptoms w/ onset of intermittent hallucinations Unclear if this represents general mental decline or an acute process Recent work up in ED neg including UA. Repeat UA 11/01/13 remains neg Fall alarms on at all times - high fall risk (6) CKD (chronic kidney disease) stage 3, GFR 30-59 ml/min: Assessment and Plan: CHRONIC Baseline CKD3 Per historical labwork: Cr 1.05-1.34. GFR 46-52 Renal fx remains at baseline Monitor w/ CMP daily (7) OAB (overactive bladder): Assessment and Plan: CHRONIC Hold home oxybutynin for now d/t Lamb catheter insertion (risk for urinary retention when discontinued) Resume when clinically indicated (8) Hypothyroid: Assessment and Plan: CHRONIC Continue home levothyroxine Check TSH in AM (9) Underweight: Assessment and Plan: CHRONIC Suspect mild to moderate protein zenon malnutrition Scheduling Agent c/s Urinary Catheter Management Urinary Catheter Management Urethral: Cath placed during this visit: yes Urethral indwelling: Yes Reason for continuing: decision to DC catheter Insertion date: 11/01/23 Insertion time: 11:18
--- NOTE | 2023-11-02 09:35 | CM.NOTE ---
Rounds made with Dr. Wilkins, no discharge for pt today. Pt will go to [facility] skilled when medically ready for discharge.
[2023-11-02] MEDS: PAROXETINE HCL 20 MG TABLET 10 MG PO (11:09)
[2023-11-02] MEDS: CEFAZOLIN SODIUM/DEXTROSE,ISO 2 GM/50 ML PIGGYBACK IV ×2 (11:09→18:13)
[2023-11-02] MEDS: LEVOTHYROXINE SODIUM 25 MCG TABLET PO (11:09)
--- NOTE | 2023-11-02 12:50 | SWNOTE1 ---
PT/OT notes sent to [facility] from today.
[2023-11-02 14:00] VITALS: BP 119/55; PULSE 78; RESP 18; TEMP 36.6; O2SAT 95
[2023-11-02] MEDS: OXYCODONE HCL/ACETAMINOPHEN 5MG/325MG 1 TAB PO (14:32)
[2023-11-02] MEDS: 0.9 % SODIUM CHLORIDE 250 ML 10 ML IV (18:14)
[2023-11-02 20:00] VITALS: O2SAT 90
[2023-11-02] MEDS: ZIPRASIDONE MESYLATE 20 MG, WATER FOR INJECTION,STERILE 1.2 ML IM (20:24)
[2023-11-02 20:25] VITALS: BP 111/66; PULSE 84; RESP 18; TEMP 37.2; O2SAT 93
--- NOTE | 2023-11-02 20:47 | PC.NURSE ---
Patient found sideways in bed. She removed dressing to right hip. Area inspected. Telfa pad applied to cover lacy.
[2023-11-02] MEDS: TEMAZEPAM 15 MG CAPSULE PO (22:21)
[2023-11-02] MEDS: PROSTAT 15 GM PROTEIN/100 CAL 30 ML LIQUID PACKET PO (22:22)
[2023-11-02] MEDS: JUVEN PACKET 1 PACKET PO (22:22)
[2023-11-02 23:00] VITALS: O2SAT 93
[2023-11-03 05:03] LABS: Basophils Percent Auto 0.3 % (0.2-2.0); Eosinophils Absolute Auto 0.3 10^3/uL (0.0-0.7); Eosinophils Percent Auto 3.2 % (0.9-7.0); Hematocrit 34.4 % (36.0-48.0); Hemoglobin 11.3 g/dL (12.0-16.0); Immature Granulocytes Abs Auto 0.03 10^3/uL (0.00-0.03); Immature Granulocytes Pct Auto 0.3 % (0.0-0.5); Lymphocytes Absolute Auto 1.3 10^3/uL (1.2-3.8); Lymphocytes Percent Auto 14.5 % (20.5-60.0); Mean Corpuscular HGB Conc 32.8 g/dL (29.9-35.2); Mean Corpuscular Hemoglobin 31.3 pg (26.7-34.0); Mean Corpuscular Volume 95.3 fL (81.0-99.0); Mean Platelet Volume 9.7 fL (9.5-13.5); Monocytes Absolute Auto 1.1 10^3/uL (0.3-0.8); Monocytes Percent Auto 11.9 % (1.7-12.0); Neutrophils Absolute Auto 6.3 10^3/uL (1.4-6.5); Neutrophils Percent Auto 69.8 % (43.0-75.0); Platelet Count 188 10^3/uL (150-450); Red Blood Count 3.61 10^6/uL (4.20-5.40); Red Cell Distribution Width 13.6 % (11.0-15.0)
[2023-11-03 05:42] LABS: Alanine Aminotransferase 24 U/L (14-59); Albumin Globulin Ratio 0.8; Albumin Level 2.7 g/dL (3.4-5.0); Alkaline Phosphatase 61 U/L (46-116); Anion Gap 9.1; Aspartate Amino Transferase 58 U/L (15-37); BUN Creatinine Ratio 19.3; Bilirubin Total 0.5 mg/dL (0.2-1.0); Calcium 8.6 mg/dL (8.5-10.1); Chloride 108 mmol/L (98-107); Estimated GFR (African America 55 (>=60); Estimated GFR (Non-African Ame 46 (>=60); Globulin 3.6 g/dL; Glucose 102 mg/dL (74-106); Potassium 4.1 mmol/L (3.5-5.1); Sodium 146 mmol/L (136-145); Total Protein 6.3 g/dL (6.4-8.2)
[2023-11-03 05:51] LABS: TSH W/ REFLEX FT4 1.154 uIU/mL (0.358-3.740)
[2023-11-03 06:00] VITALS: O2SAT 95
[2023-11-03 08:00] VITALS: RESP 16
--- NOTE | 2023-11-03 10:38 | SWNOTE1 ---
SW spoke to nurse practitioner and pt did have some delirium last night, confusion. Pt is medically stable for dc today to [facility]. SW sent updates from last night to [facility]. Updates only included nursing notes.
[2023-11-03] MEDS: PAROXETINE HCL 20 MG TABLET 10 MG PO (10:47)
[2023-11-03] MEDS: LEVOTHYROXINE SODIUM 25 MCG TABLET PO (10:48)
[2023-11-03] MEDS: PROSTAT 15 GM PROTEIN/100 CAL 30 ML LIQUID PACKET PO (10:48)
[2023-11-03] MEDS: JUVEN PACKET 1 PACKET PO (10:48)
--- NOTE | 2023-11-03 11:56 | CM.NOTE ---
Rounds made with Dr. Henderson. Plan to discharge to [place] [facility] for Skilled Therapy.
[2023-11-03 12:00] VITALS: BP 108/62; PULSE 90; RESP 18; TEMP 36.8; O2SAT 96
--- NOTE | 2023-11-03 12:24 | P.DS_ITS ---
<Statement entered by Marty Henderson MD - 11/03/23 21:20> Patient seen and examined, agree with assessment and plan below. Admitted after fall and pain in hip and shoulder. Found fracture of femoral neck and humerus. Ortho consulted and to OR for ORIF of femur. Recommended sling for arm. Did well after surgery. Started PT for weakness and recommended SNF. Pain contro lled. Transferred to SNF in stable condition. Diagnosis: 1. Right femur fracture 2. Right shoulder fracture 3. Fall 4. Dementia DS: Providers Provider Date of admission: 10/31/23 20:20 Primary care physician: CHASTITY RODRIGUEZ Consults: 10/31/23 22:16 Consult to Orthopedic Surgery Routine Consulting Provider: Aristides Weiss Reason For Exam: Fx R Hip/R Shoulder Reason for consultation: Fx R Hip/Fx R shoulder Has provider been notified: Yes 10/31/23 22:32 Occupational Therapy Eval and Treat Routine Reason for consultation: R Hip/R Humerus Fx Has provider been notified: No Physical Therapy Eval and Treat Routine Reason for consultation: R Hip/R Humerus Fx 11/01/23 12:28 Consult to Dietitian Routine Reason For Exam: suspected protein zenon malnutrition/underweight Reason for consultation: suspected protein zenon malnutrition/underweight Has provider been notified: No 11/01/23 17:31 Physical Therapy Eval and Treat Routine Reason for consultation: Weight-bear right lower extremity and nonweightbearing right upper extremit Has provider been notified: No Discharging clinician: Carlita Lewis DS: Diagnosis Discharge Diagnosis (1) Closed fracture of neck of right femur: (2) Fracture of right shoulder: (3) Acute metabolic encephalopathy: (4) Fall: (5) Dementia: (6) CKD (chronic kidney disease) stage 3, GFR 30-59 ml/min: (7) OAB (overactive bladder): (8) Hypothyroid: (9) Underweight: DS: Summary Hospital Course Hospital Course: The patient was admitted with a proximal right humerus fracture and a right femoral neck fracture after suffering an unwitnessed fall at home. She was seen in consult by Dr. Weiss, orthopedic surgeon, and an ORIF of her right femoral neck was performed on 11/02/2023. The humeral fracture is nonsurgical and will be conservatively managed. Her right upper extremity was placed in a sling which was maintained throughout her stay. The patient has advanced dementia at baseline but was pleasantly cooperative throughout her stay. She did experience postanesthesia delirium on the day following surgery with increased confusion, hallucinations, and agitation. She was not aggressive or combative in any way. She was treated with 1 dose of Geodon and has been much calmer since that time. Otherwise, her postoperative course was unremarkable. She has mild postoperative anemia following surgery. Per Dr. Weiss, the patient is surgically stable for discharge to a local SNF facility for further rehab. She is to remain nonweightbearing on both the right lower extremity and right upper extremity for now. Her right upper extremity sling must remain in place 24 hours a day. She should follow-up with Dr. Weiss in 3 weeks. She was prescribed Lovenox DVT prophylaxis for 6 weeks at discharge. The patient is being discharged to the [facility] in stable condition. We recommend a follow up CBC within one week to continue to monitor her post op anemia. Time Spent with Patient Time attestation: Total time spent providing and/or coordinating discharge services: Time spent: greater than 30 minutes Specific discharge activities: Physical exam, discussion of discharge plan, questions answered. Exam Narrative Exam Narrative: Somnolent after receiving Geodon injection last night. Opens eyes to voice. Cooperates with exam/follows directions. Returns immediately back to sleep Constitutional Vital Signs, click to edit/add: Last Vital Signs Temp 98.2 F 11/03/23 12:00 Pulse 90 11/03/23 12:00 Resp 18 11/03/23 12:00 BP 108/62 11/03/23 12:00 Pulse Ox 96 11/03/23 12:00 O2 Del Method Room Air 11/03/23 12:00 O2 Flow Rate 2 11/01/23 17:27 Common normals: no apparent distress and alert General appearance: cooperative Orientation/consciousness: Yes oriented to person and Yes confused; not oriented to place and not oriented to time [facility] Common normals: normocephalic and head/scalp atraumatic Eye Common normals: PERRL, EOMs intact bilaterally, conjunctivae normal and no scleral icterus Neck & C-Spine Common normals: no JVD Respiratory Common normals: normal respiratory effort, no use of accessory muscles and clear to auscultation bilaterally Effort & inspection: symmetric chest movement Cardio Common normals: no JVD, regular rate, regular rhythm, S1 normal heart sound, S2 normal heart sound, no murmurs and peripheral pulses 2+ throughout GI Common normals: Normal to inspection, nondistended, normoactive bowel sounds present, soft to palpation and non-tender Bladder/kidney exam: bladder normal to palpation Extremity Common normals: normal to inspection, full ROM, normal capillary refill and no p edal edema General: no clubbing and no cyanosis Right upper extremity: shoulder joint (Swollen, bruised, painful. Sling in place) Right lower extremity: upper leg (post op dressing D&I) Neuro Common normals: moves all extremities, no focal motor deficits and no sensory deficits noted Psych Common normals: activity/motor behavior normal DS: Data Data Completed and Pending Labs on day of discharge: Labs from last 24 hours 11/03/23 04:08 WBC 9.0 RBC 3.61 L Hgb 11.3 L Hct 34.4 L MCV 95.3 MCH 31.3 MCHC 32.8 RDW 13.6 Plt Count 188 MPV 9.7 Neut % (Auto) 69.8 Lymph % (Auto) 14.5 L [place] % (Auto) 11.9 Eos % (Auto) 3.2 Baso % (Auto) 0.3 Neut # (Auto) 6.3 Lymph # (Auto) 1.3 [place] # (Auto) 1.1 H Eos # (Auto) 0.3 Baso # (Auto) 0.0 Abs Immat Gran (auto) 0.03 Imm/Tot Granulo (auto) 0.3 Sodium 146 H Potassium 4.1 Chloride 108 H Carbon Dioxide 33.0 H Anion Gap 9.1 BUN 22.0 H Creatinine 1.14 H Est GFR ( Amer) 55 L Est GFR (Non-Af Amer) 46 L BUN/Creatinine Ratio 19.3 Glucose 102 Calcium 8.6 Total Bilirubin 0.5 AST 58 H ALT 24 Alkaline Phosphatase 61 Total Protein 6.3 L Albumin 2.7 L Globulin 3.6 Albumin/Globulin Ratio 0.8 TSH & Free T4 Interp 1.154 Discharge Plan Discharge Disposition: [facility] SNF Condition: Good Discharge Medications: New enoxaparin [Lovenox] 30 mg/0.3 mL syringe 30 mg subcut DAILY 42 Days Qty: 12.6 0RF Continued oxybutynin chloride 5 mg tablet extended release 24hr 5 mg PO DAILY levothyroxine 25 mcg tablet 25 mcg PO DAILY paroxetine HCl 10 mg tablet 10 mg PO DAILY Changed oxycodone-acetaminophen 5-325 mg tablet 1 tab PO Q8H PRN (Reason: pain) Qty: 14 0RF Discontinued quetiapine 25 mg tablet 12.5 mg PO QPM Activity Restrictions/Additional Instructions: - PT/OT strengthening w/ the following limitations: - RLE NWB - RUE NWB. Sling to remain on at all times. 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 Forms: Portal Instructions Follow Up Appointments: November 20 @ 10:10am with Dr. Weiss (ortho) [facility] [phone] Discharge Date/Time: 11/03/23 14:47
--- NOTE | 2023-11-03 13:09 | SWNOTE1 ---
Pt is ready for dc today. MARÍA sent over dc med rec to [facility]. Pt is going to [facility] skilled. MARÍA set up trips for 2:00-2:30. MARÍA completed HENS. MARÍA gave CRF to nursing to fill out. MARÍA notified nursing, [facility], and pt's daughter of time.
--- NOTE | 2023-11-03 13:30 | PT.DAILY ---
Physical Therapy Daily Note PT Daily Note/Assess Start: 11/01/23 14:22 Freq: Status: Active Protocol: Document 11/03/23 13:15 TOYIN (Rec: 11/03/23 13:30 TOYIN [id number]) Physical Therapy Daily Note/Assessment Time In/Time Out Time In 09:40 Time Out 10:02 Subjective Subjective Patient denies pain, but with moves gingerly. Then does report that shoulder is worse than hip. Therapeutic Exercise Time Therapeutic Exercise Minutes (minutes) 5 Therapeutic Exercise Units 0 Therapeutic Exercise Treatment Therapeutic Exercise Treatment Seated AP and LAQ 10 reps to promote LE movement and strength. Therapeutic Activity Time Therapeutic Activity Minutes (minutes) 15 Therapeutic Activity Units 1 Therapeutic Activity Treatment Chair Transfer Ability 2 Person Assist Therapeutic Activity Comments Sit to stand with use of gait belt and L bg-cane max assist x2. To pivot to chair max assist, as patient does not want to move or pivot feet . Sit to stand from chair with pivot to commode max assist x1 without bg cane. Transfer from commode to chair with bg-cane did try to do more of an ambulation but patient would still not move feet so just pivoted back into chair with max assist. Total Physical Therapy Time Total Therapy Minutes 20 Total Physical Therapy Units 1 Summary Daily Note Summary Patient has poor quality of movement. Tolerates WB into standing, but then does not move feet to ambulate, thus just pivoting into chair today . Patient is cooperative with therapy and works hard with transfers.
[2023-11-03 13:46] VITALS: BMI 19.1
== END 2023-11-03 14:47 | DRG 480 ==
LOC: ER 19:52 → MS 20:25
PROVIDERS: Family Medicine; Nurse Practitioner Acute Care; Nurse Practitioner Family; Orthopaedic Surgery; Admitting Provider Family Medicine; Emergency Provider Emergency Medicine; PCP Family Medicine; Visit Provider Nurse Practitioner
PROC: 0QS604Z Reposition Right Upper Femur with Internal Fixation Device, Open Approach (ICD-10-PCS; principal; 2023-11-01 15:30)
DX: S72.001A Fracture of unspecified part of neck of right femur, initial encounter for closed fracture (principal); G93.41 Metabolic encephalopathy; S42.211A Unspecified displaced fracture of surgical neck of right humerus, initial encounter for closed fracture; S42.251A Displaced fracture of greater tuberosity of right humerus, initial encounter for closed fracture; F05 Delirium due to known physiological condition; E44.0 Moderate protein-calorie malnutrition; D62 Acute posthemorrhagic anemia; Z68.1 Body mass index [BMI] 19.9 or less, adult; W19.XXXA Unspecified fall, initial encounter; F03.90 Unspecified dementia, unspecified severity, without behavioral disturbance, psychotic disturbance, mood disturbance, and anxiety; Z79.899 Other long term (current) drug therapy; Z79.890 Hormone replacement therapy; E03.9 Hypothyroidism, unspecified; N32.81 Overactive bladder; D72.829 Elevated white blood cell count, unspecified; Z90.710 Acquired absence of both cervix and uterus; N18.31 Chronic kidney disease, stage 3a; Z66 Do not resuscitate
CPT/HCPCS: 36415; 51702; 64447; 70450; 72125; 73030; 73502; 76000; 80048; 80053; 81001; 84443; 85025; 85610; 85730; 87086; 93005; 96365; 96366; 96372; 96375; 96376; 97161; 97165; 97530; 97535; 99285; C1713; J0131; J0690; J1100; J2270; J2371; J2405; J2704; J3010; J3486

== ENCOUNTER 2023-11-09 20:47 | Emergency (ER) | payer MEDICARE, OTHER, SELFPAY ==
[2023-11-09 20:49] VITALS: BP 152/52; PULSE 85; RESP 14; TEMP 37.2; O2SAT 98; BMI 20.8
--- OUTSIDE RECORDS SUMMARY | 2023-11-09 20:57 | XMS_ITS | CCD ---
Author Name Unknown Address [address] [facility] [address] [place] [address] Organization [facility] Care Team Providers Care Black Leather Trimmer Name Role Phone DR ARTIS RODRIGUEZ Admitting Unavailable JENNIFER, DR HAYWOOD Consulting Unavailable JENNIFER, DR HAYWOOD Attending Unavailable SABAS, DR ALMA ROSA Horta Primary Care Unavailable SABAS, DR ALMA ROSA Horta Consulting Unavailable SABAS, DR ALMA ROSA Horta Attending Unavailable SABAS, DR ALMA ROSA Horta Admitting Unavailable SABAS, DR ALMA ROSA Horta Primary Care Unavailable JUDY PILLAI Attending Unavailable JUDY PILLAI Attending Unavailable Artis Rodriguez MD Primary Care Provider [phone] ARTIS RODRIGUEZ Attending Unavailable ARTIS RODRIGUEZ Attending Unavailable Allergies Allergy Classification Reported Allergen(s) Allergy Type Date of Onset Reaction(s) Facility (1 source) donepezil Drug Allergy [facility] (1 source) Penicillins Drug allergy (disorder) 3 [facility] (1 source) Sulfonamides (Antibiotic) Drug allergy (disorder) 3 [facility] (3 sources) Clarithromycin Allergy to substance 3 [facility] (3 sources) Penicillin G Drug Allergy 3 [facility] (3 sources) Sulfamethoxazole / Trimethoprim Drug Allergy 3 [facility] Medications Current Medications Medication Drug Class(es) Dates [...] (Reorder) calcium citrate 1040 mg oral tablet (3 sources) take 4 tablets by mouth in the morning calcium citrate 250 MG tablet Take 4 tablets by mouth in the morning. 0 Active cholecalciferol 0.05 mg oral capsule (3 sources) Vitamin D take 1 capsule by mouth in the morning cholecalciferol (Vitamin D-3) 50 MCG (2000 UT) capsule Take 2,000 Units by mouth in the morning. 0 Active levothyroxine sodium 0.025 mg oral tablet (3 sources) l-Thyroxine take 1 tablet by mouth before mealtime levothyroxine (Synthroid, Levoxyl) 25 MCG tablet Take 25 mcg by mouth in the morning. Take before meals. 0 Active 24 hr oxybutynin chloride 5 mg extended release oral tablet (3 sources) Cholinergic Muscarinic Antagonist take 1 tablet by mouth every twenty-four hours in the morning oxybutynin XL (Ditropan-XL) 5 MG 24 hr tablet Take 5 mg by mouth in the morning. Do not crush, chew, or split. . 0 Active PARoxetine hydrochloride 10 mg oral tablet (3 sources) Serotonin Reuptake Inhibitor Start: 023 End: 024 take 1 tablet by mouth in the morning PARoxetine (Paxil) 10 MG tablet Indications: Dementia with behavioral disturbance (CMS/HCC) Take 1 tablet (10 mg) by mouth in the morning. 90 tablet 1 07/25/2023 01/21/2024 Active Completed/Discontinued Medications Medication Drug Class(es) Dates Sig (Normalized) Sig (Original) acetaminophen 325 mg / oxyCODONE hydrochloride 5 mg oral tablet (4 sources) Opioid Agonist Start: 10-21-2023 End: 10-28-2023 take 0.5-1 tablets by mouth every eight hours for pain oxyCODONE-acetamin ophen (Percocet) 5-325 MG tablet Indications: DDD (degenerative disc disease), lumbar Take 0.5-1 tablets by mouth every 8 (eight) hours if needed for severe pain for up to 7 days 21 tablet 0 10/21/2023 10/28/2023 QUEtiapine 25 mg oral tablet (2 sources) Atypical Antipsychotic Start: 10-21-2023 End: 10-28-2023 QUEtiapine (SEROquel) 25 MG tablet Indications: Dementia with behavioral disturbance (CMS/HCC) Take 1/2 to 1 tablet in the evening 30 tablet 0 10/21/2023 10/28/2023 Discontinued (Side effects) Problems Active Problems Problem Classification Problem Date Documented Date Episodic/Chronic Chronic kidney disease (3 sources) Chronic kidney disease stage 3A ; Translations: [Stage 3a chronic kidney disease (HCC)] Onset: 05-09-2023 05-09-2023 Chronic Delirium, dementia, and amnestic and other cognitive disorders (6 sources) Dementia with behavioral disturbance; Translations: [Dementia with behavioral disturbance (CMS/HCC)] Onset: 05-03-2023 10-31-2023 Chronic Disorders of lipid metabolism (4 sources) Pure hypercholesterolemia, unspecified; Translations: [Hypercholesterolemia ] Onset: 10-01-2022 05-03-2023 Chronic Genitourinary symptoms and ill-defined conditions (3 sources) Incontinence; Translations: [Unspecified urinary incontinence] Onset: 05-05-2023 05-05-2023 Chronic Nutritional deficiencies (14 sources) Vitamin D deficiency, unspecified; Translations: [Moderate protein-calorie malnutrition] Onset: 11-20-2021 Chronic Other nutritional; endocrine; and metabolic disorders (5 sources) Body mass index less than 20; Translations: [Body mass index (BMI) 19.9 or less, adult] Onset: 05-09-2023 05-09-2023 Episodic Schizophrenia and other psychotic disorders (6 sources) Delusions; 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] Onset: 05-03-2023 10-31-2023 Chronic Spondylosis; intervertebral disc disorders; other back problems (5 sources) Degeneration of lumbar intervertebral disc; Translations: [Other intervertebral disc degeneration, lumbar region] Onset: 05-05-2023 05-05-2023 Chronic Thyroid disorders (10 sources) Hypothyroidism, unspecified; Translations: [Hypothyroidism] Onset: 09-29-2022 Chronic Past or Other Problems Problem Classification Problem Date Documented Da te Episodic/Chronic Abdominal hernia (3 sources) Hiatal hernia; Translations: [Diaphragmatic hernia without obstruction or gangrene] Onset: 05-03-2023 05-03-2023 Episodic Mood disorders (3 sources) Mood disorders Onset: 08-22-2023 08-22-2023 Pancreatic disorders (not diabetes) (1 source) Acute pancreatitis without necrosis or infection, unspecified; Translations: [ACUTE PANCREATITIS WO NECRS/INF UNS] Onset: 11-24-2021 Episodic Residual codes; unclassified (3 sources) Body mass index 20-24 - normal; Translations: [Body mass index (BMI) 20.0-20.9, adult] Onset: 05-03-2023 Resolved: 05-09-2023 05-09-2023 Episodic Results Test Name Value Interpretation Reference Range Facil ity CBC AUTO DIFFon 09-29-2022 BASO # 0.0 103/ul Normal 0.0-0.1 [facility] Comment on above: Performed By: #### C BC #### [facility] [address] [place] [address] Dr. Naheed Hernandes Basophils/100 WBC (Bld) 0.7 % Normal 0.2-2.0 [facility] Comment on above: Performed By: #### C BC #### [facility] [address] [place] [address] Dr. Naheed Hernandes EO # 0.1 103/ul Normal 0.0-0.7 [facility] Comment on above: Performed By: #### C BC #### [facility] [address] [place] [address] Dr. Naheed Hernandes Eosinophils/100 WBC (Bld) 2.2 % Normal 0.9-7.0 [facility] Comment on above: Performed By: #### C BC #### [facility] [address] [place] [address] Dr. Naheed Hernandes Erythrocyte distribution width (RBC) [Ratio] 13.2 % Normal 11.0-15.0 [facility] Comment on above: Performed By: #### C BC #### [facility] [address] [place] [address] Dr. Naheed Hernandes Hematocrit (Bld) [Volume fraction] 43.2 % Normal 36.0-48.0 [facility] Comment on above: Performed By: #### C BC #### [facility] [address] [place] [address] Dr. Naheed Hernandes Hemoglobin (Bld) [Mass/Vol] 14.0 g/dL Normal 12.0-16.0 [facility] Comment on above: Performed By: #### C BC #### [facility] [address] [place] [address] Dr. Naheed Hernandes IG # 0.01 10e3/ul Normal 0.00-0.03 [facility] Comment on above: Performed By: #### C BC #### [facility] [address] [place] [address] Dr. Naheed Hernandes IG % 0.2 % Normal 0.0-0.5 [facility] Comment on above: Performed By: #### C BC #### [facility] [address] [place] [address] Dr. Naheed Hernandes LYMPH # 1.0 103/ul Critically low 1.2-3.8 [facility] Comment on above: Performed By: #### C BC #### [facility] [address] [place] [address] Dr. Naheed Hernandes Lymphocytes/100 WBC (Bld) 17.4 % Critically low 20.5-60.0 [facility] Comment on above: Performed By: #### C BC #### [facility] [address] [place] [address] Dr. Naheed Hernandes MANUAL DIFF REQ NO Normal [facility] Comment on above: Performed By: #### C BC #### [facility] [address] [place] [address] Dr. Naheed Hernandes MCH (RBC) [Entitic mass] 30.0 pg Normal 26.7-34.0 [facility] Comment on above: Performed By: #### C BC #### [facility] [address] [place] [address] Dr. Naheed Hernandes MCHC (RBC) [Mass/Vol] 32.4 g/dL Normal 29.9-35.2 [facility] Comment on above: Performed By: #### C BC #### [facility] [address] [address] [address] Naheed Hernandes MCV (RBC) [Entitic vol] 92.7 fL Normal 81.0-99.0 [facility] Comment on above: Performed By: #### C BC #### [facility] [address] [address] [address] Naheed Hernandes MONO # 0.5 103/ul Normal 0.3-0.8 [facility] Comment on above: Performed By: #### C BC #### [facility] [address] [address] [address] Naheed Hernandes Monocytes/100 WBC (Bld) 8.5 % Normal 1.7-12.0 [facility] Comment on above: Performed By: #### C BC #### [facility] [address] [address] [address] Naheed Hernandes NEUT # 4.2 103/ul Normal 1.4-6.5 [facility] Comment on above: Performed By: #### C BC #### [facility] [address] [address] [address] Naheed Hernandes Neutrophils/100 WBC (Bld) 71.0 % Normal 43.0-75.0 [facility] Comment on above: Performed By: #### C BC #### [facility] [address] [address] [address] Naheed Hernandes Platelet mean volume (Bld) [Entitic vol] 9.3 fL Critically low 9.5-13.5 [facility] Comment on above: Performed By: #### C BC #### [facility] [address] [address] [address] Naheed Hernandes PLT 242 103/ul Normal 150-450 [facility] Comment on above: Performed By: #### C BC #### [facility] [address] [address] [address] Naheed Hernandes RBC 4.66 106/ul Normal 4.20-5.40 [facility] Comment on above: Performed By: #### C BC #### [facility] [address] [address] [address] Naheed Hernandes WBC 5.9 103/ul Normal 4.0-11.0 [facility] Comment on above: Performed By: #### C BC #### [facility] [address] [address] [address] Naheed Hernandes FREE T3on 09-29-2022 FREE T3 2.15 pg/mlL Critically low 2.18-3.98 [facility] Comment on above: Performed By: #### L IPID, TSH, FT3, CMP #### [facility] [address] [address] [address] Naheed Hernandes FREE T4on 09-29-2022 Free T4 [Mass/Vol] 1.28 ng/dL Normal 0.76-1.46 [facility] Comment on above: Performed By: #### F T4, VITAD #### [facility] [address] [place] [address] Dr. Naheed Hernandes LIPID PROFILEon 09-29-2022 CHOL-HDL RATIO NORM SEE BELOW Normal [facility] Comment on above: Result Comment: 3.3 - 4.4 LOW RISK 4.4 - 7.1 AVERAGE RISK 7.1 - 11.0 MODERATE RISK >11.0 HIGH RISK Performed By: #### L IPID, TSH, FT3, CMP #### [facility] [address] [place] [address] Dr. Naheed Hernandes Cholesterol [Mass/Vol] 186 mg/dL Normal <=200 [facility] Comment on above: Performed By: #### L IPID, TSH, FT3, CMP #### [facility] [address] [address] [address] Naheed Hernandes Cholesterol in HDL [Mass/Vol] 70 mg/dL Critically high 40-60 [facility] Comment on above: Performed By: #### L IPID, TSH, FT3, CMP #### [facility] [address] [address] [address] Naheed Hernandes Cholesterol in LDL [Mass/Vol] 98.8 mg/dL Normal [facility] Comment on above: Performed By: #### L IPID, TSH, FT3, CMP #### [facility] [address] [address] [address] Naheed Hernandes Cholesterol.total/ Cholesterol in HDL [Mass ratio] 2.7 {ratio} Normal [facility] Comment on above: Performed By: #### L IPID, TSH, FT3, CMP #### [facility] [address] [address] [address] Naheed Hernandes HDL NORMAL > or = 60 mg/dl - LO W CARDIOVASCULAR RISK <40 mg/dl - HIGH CARDIOVASCULAR RISK Normal [facility] Comment on above: Performed By: #### L IPID, TSH, FT3, CMP #### [facility] [address] [address] [address] Naheed Hernandes LDL CALC NORMAL SEE BELOW Normal [facility] Comment on above: Result Comment: <100 mg/dl OPTIMAL 100 - 129 mg/dl NEAR OR ABOVE OPTIMAL 130 - 159 mg/dl BORDERLINE HIGH 160 - 189 mg/dl HIGH >190 mg/dl VERY HIGH Performed By: #### L IPID, TSH, FT3, CMP #### [facility] [address] [address] [address] Naheed Hernandes Triglyceride [Mass/Vol] 86 mg/dL Normal <=150 [facility] Comment on above: Performed By: #### L IPID, TSH, FT3, CMP #### [facility] [address] [address] [address] Naheed Hernandes VLDL CALC 17.2 mg/dL Normal [facility] Comment on above: Performed By: #### L IPID, TSH, FT3, CMP #### [facility] [address] [address] [address] Naheed Hernandes PROF 14(COMP METB)on 023 Albumin [Mass/Vol] 3.7 g/dL Normal 3.4-5.0 [facility] Comment on above: Performed By: #### L IPID, TSH, FT3, CMP #### [facility] [address] [place] [address] Dr. Naheed Hernandes Albumin/Globulin [Mass ratio] 1.1 {ratio} Normal [facility] Comment on above: Performed By: #### L IPID, TSH, FT3, CMP #### [facility] [address] [place] [address] Dr. Naheed Hernandes ALP [Catalytic activity/Vol] 90 U/L Normal 46-116 [facility] Comment on above: Performed By: #### L IPID, TSH, FT3, CMP #### [facility] [address] [place] [address] Dr. Naheed Hernandes ALT [Catalytic activity/Vol] 14 U/L Normal 14-59 [facility] Comment on above: Performed By: #### L IPID, TSH, FT3, CMP #### [facility] [address] [place] [address] Dr. Naheed Hernandes Anion gap [Moles/Vol] 7.6 mmol/L Normal [facility] Comment on above: Performed By: #### L IPID, TSH, FT3, CMP #### [facility] [address] [place] [address] Dr. Naheed Hernandes AST [Catalytic activity/Vol] 25 U/L Normal 15-37 [facility] Comment on above: Performed By: #### L IPID, TSH, FT3, CMP #### [facility] [address] [place] [address] Dr. Naheed Hernandes Bilirubin [Mass/Vol] 1.4 mg/dL Critically high 0.2-1.0 [facility] Comment on above: Performed By: #### L IPID, TSH, FT3, CMP #### [facility] [address] [place] [address] Dr. Naehed Hernandes Calcium [Mass/Vol] 9.0 mg/dL Normal 8.5-10.1 [facility] Comment on above: Performed By: #### L IPID, TSH, FT3, CMP #### [facility] [address] [place] [address] Dr. Naheed Hernandes Chloride [Moles/Vol] 103 mmol/L Normal 98-107 [facility] Comment on above: Performed By: #### L IPID, TSH, FT3, CMP #### [facility] [address] [place] [address] Dr. Naheed Hernandes CO2 [Moles/Vol] 32.2 mmol/L Critically high 21.0-32.0 [facility] Comment on above: Performed By: #### L IPID, TSH, FT3, CMP #### [facility] [address] [place] [address] Dr. Naheed Hernandes Creatinine [Mass/Vol] 1.05 mg/dL Critically high 0.55-1.02 [facility] Comment on above: Performed By: #### L IPID, TSH, FT3, CMP #### [facility] [address] [place] [address] Dr. Naheed Hernandes EGFR-AF TUNISIAN >60 Normal >=60 [facility] Comment on above: Performed By: #### L IPID, TSH, FT3, CMP #### [facility] [address] [place] [address] Dr. Naheed Hernandes EGFR-NON AF TUNISIAN 50 mL/min/1.73m2 Critically low >=60 [facility] Comment on above: Performed By: #### L IPID, TSH, FT3, CMP #### [facility] [address] [place] [address] Dr. Naheed Hernandes Globulin (S) [Mass/Vol] 3.4 g/dL Normal [facility] Comment on above: Performed By: #### L IPID, TSH, FT3, CMP #### [facility] [address] [place] [address] Dr. Naheed Hernandes Glucose [Mass/Vol] 85 mg/dL Normal 74-106 [facility] Comment on above: Performed By: #### L IPID, TSH, FT3, CMP #### [facility] [address] [place] [address] Dr. Naheed Hernandes Potassium [Moles/Vol] 3.8 mmol/L Normal 3.5-5.1 [facility] Comment on above: Performed By: #### L IPID, TSH, FT3, CMP #### [facility] [address] [place] [address] Dr. Naheed Hernandes Protein [Mass/Vol] 7.1 g/dL Normal 6.4-8.2 [facility] Comment on above: Performed By: #### L IPID, TSH, FT3, CMP #### [facility] [address] [place] [address] Dr. Naheed Hernandes Sodium [Moles/Vol] 139 mmol/L Normal 136-145 [facility] Comment on above: Performed By: #### L IPID, TSH, FT3, CMP #### [facility] [address] [place] [address] Dr. Naheed Hernandes Urea nitrogen [Mass/Vol] 16.0 mg/dL Normal 7.0-18.0 [facility] Comment on above: Performed By: #### L IPID, TSH, FT3, CMP #### [facility] [address] [place] [address] Dr. Naheed Hernandes Urea nitrogen/Creatinin e [Mass ratio] 15.2 mg/mg Normal [facility] Comment on above: Performed By: #### L IPID, TSH, FT3, CMP #### [facility] [address] [place] [address] Dr. Naheed Hernandes TSHon 09-29-2022 TSH 1.283 uIU/mL Normal 0.358-3.740 [facility] Comment on above: Performed By: #### L IPID, TSH, FT3, CMP #### [facility] [address] [place] [address] Dr. Naheed Hernandes VITAMIN D 25 OHon 09-29-2022 VIT D 25-OH 78.0 ng/mL Normal [facility] Comment on above: Performed By: #### F T4, VITAD #### [facility] [address] [place] [address] Dr. Naheed Hernandes VIT D RANGES SEE BELOW Normal [facility] Comment on above: Result Comment: <20 ng/mL Vit D deficient 20 - <30 ng/mL Vit D insufficient 30 - 100 ng/mL Vit D sufficient >100 ng/mL Potential Toxicity Performed By: #### F T4, VITAD #### [facility] [address] [address] [address] Naheed Hernandes CBC AUTO DIFFon 11-20-2021 BASO # 0.0 103/ul Normal 0.0-0.1 [facility] Comment on above: Performed By: #### C BC #### [facility] [address] [address] [address] Naheed Hernandes Basophils/100 WBC (Bld) 0.6 % Normal 0.2-2.0 [facility] Comment on above: Performed By: #### C BC #### [facility] [address] [place] [address] Dr. Naheed Hernandes EO # 0.1 103/ul Normal 0.0-0.7 [facility] Comment on above: Performed By: #### C BC #### [facility] [address] [place] [address] Dr. Naheed Hernandes Eosinophils/100 WBC (Bld) 1.9 % Normal 0.9-7.0 [facility] Comment on above: Performed By: #### C BC #### [facility] [address] [place] [address] Dr. Naheed Hernandes Erythrocyte distribution width (RBC) [Ratio] 13.3 % Normal 11.0-15.0 [facility] Comment on above: Performed By: #### C BC #### [facility] [address] [place] [address] Dr. Naheed Hernandes Hematocrit (Bld) [Volume fraction] 43.7 % Normal 36.0-48.0 [facility] Comment on above: Performed By: #### C BC #### [facility] [address] [place] [address] Dr. Naheed Hernandes Hemoglobin (Bld) [Mass/Vol] 14.2 g/dL Normal 12.0-16.0 [facility] Comment on above: Performed By: #### C BC #### [facility] [address] [place] [address] Dr. Naheed Hernandes IG # 0.01 10e3/ul Normal 0.00-0.03 [facility] Comment on above: Performed By: #### C BC #### [facility] [address] [place] [address] Dr. Naheed Hernandes IG % 0.1 % Normal 0.0-0.5 [facility] Comment on above: Performed By: #### C BC #### [facility] [address] [place] [address] Dr. Naheed Hernandes LYMPH # 1.6 103/ul Normal 1.2-3.8 [facility] Comment on above: Performed By: #### C BC #### [facility] [address] [place] [address] Dr. Naheed Hernandes Lymphocytes/100 WBC (Bld) 23.1 % Normal 20.5-60.0 [facility] Comment on above: Performed By: #### C BC #### [facility] [address] [place] [address] Dr. Naheed Hernandes MANUAL DIFF REQ NO Normal [facility] Comment on above: Performed By: #### C BC #### [facility] [address] [place] [address] Dr. Naheed Hernandes MCH (RBC) [Entitic mass] 30.4 pg Normal 26.7-34.0 [facility] Comment on above: Performed By: #### C BC #### [facility] [address] [place] [address] Dr. Naheed Hernandes MCHC (RBC) [Mass/Vol] 32.5 g/dL Normal 29.9-35.2 [facility] Comment on above: Performed By: #### C BC #### [facility] [address] [place] [address] Dr. Naheed Hernandes MCV (RBC) [Entitic vol] 93.6 fL Normal 81.0-99.0 [facility] [place] Comment on above: Performed By: #### C BC #### [facility] [address] [place] [address] Dr. Naheed Hernandes MONO # 0.7 103/ul Normal 0.3-0.8 [facility] [place] Comment on above: Performed By: #### C BC #### [facility] [address] [place] [address] Dr. Naheed Hernandes Monocytes/100 WBC (Bld) 10.2 % Normal 1.7-12.0 [facility] [place] Comment on above: Performed By: #### C BC #### [facility] [address] [place] [address] Dr. Naheed Hernandes NEUT # 4.4 103/ul Normal 1.4-6.5 [facility] Comment on above: Performed By: #### C BC #### [facility] [address] [place] [address] Dr. Naheed Hernandes Neutrophils/100 WBC (Bld) 64.1 % Normal 43.0-75.0 [facility] [place] Comment on above: Performed By: #### C BC #### [facility] [address] [place] [address] Dr. Naheed Hernandes Platelet mean volume (Bld) [Entitic vol] 9.2 fL Critically low 9.5-13.5 [facility] Comment on above: Performed By: #### C BC #### [facility] [address] [place] [address] Dr. Naheed Hernandes PLT 243 103/ul Normal 150-450 [facility] Comment on above: Performed By: #### C BC #### [facility] [address] [place] [address] Dr. Naheed Hernandes RBC 4.67 106/ul Normal 4.20-5.40 [facility] Comment on above: Performed By: #### C BC #### [facility] [address] [place] [address] Dr. Naheed Hernandes WBC 6.9 103/ul Normal 4.0-11.0 [facility] Comment on above: Performed By: #### C BC #### [facility] [address] [place] [address] Dr. Naheed Hernandes LIPASEon 11-20-2021 Lipase [Catalytic activity/Vol] 138.0 U/L Normal 23.0-300.0 [facility] Comment on above: Performed By: #### L IPA, CMP #### [facility] [address] [address] [address] Naheed Hernandes PROF 14(COMP METB)on 022 Albumin [Mass/Vol] 3.9 g/dL Normal 3.5-5.0 [facility] Comment on above: Performed By: #### L IPA, CMP #### [facility] [address] [place] [address] Dr. Naheed Hernandes Albumin/Globulin [Mass ratio] 1.1 {ratio} Normal [facility] [place] Comment on above: Performed By: #### L IPA, CMP #### [facility] [address] [address] [address] Naheed Hernandes ALP [Catalytic activity/Vol] 88 U/L Normal 38-126 [facility] [place] Comment on above: Performed By: #### L IPA, CMP #### [facility] [address] [place] [address] Dr. Naheed Hernandes ALT [Catalytic activity/Vol] 13 U/L Normal 9-52 [facility] [place] Comment on above: Performed By: #### L IPA, CMP #### [facility] [address] [place] [address] Dr. Naheed Hernandes Anion gap [Moles/Vol] 9.1 mmol/L Normal [facility] [place] Comment on above: Performed By: #### L IPA, CMP #### [facility] [address] [place] [address] Dr. Naheed Hernandes AST [Catalytic activity/Vol] 20 U/L Normal 14-36 [facility] [place] Comment on above: Performed By: #### L IPA, CMP #### [facility] [address] [place] [address] Dr. Naheed Hernandes Bilirubin [Mass/Vol] 1.0 mg/dL Normal 0.2-1.3 [facility] Comment on above: Performed By: #### L IPA, CMP #### [facility] [address] [place] [address] Dr. Naheed Hernandes Calcium [Mass/Vol] 8.7 mg/dL Normal 8.4-10.2 [facility] Comment on above: Performed By: #### L IPA, CMP #### [facility] [address] [address] [address] Naheed Hernandes Chloride [Moles/Vol] 103 mmol/L Normal 98-107 [facility] [place] Comment on above: Performed By: #### L IPA, CMP #### [facility] [address] [address] [address] Naheed Hernandes CO2 [Moles/Vol] 32.6 mmol/L Critically high 22.0-30.0 [facility] [place] Comment on above: Performed By: #### L IPA, CMP #### [facility] [address] [address] [address] Naheed Hernandes Creatinine [Mass/Vol] 1.34 mg/dL Critically high 0.52-1.04 [facility] Comment on above: Performed By: #### L IPA, CMP #### [facility] [address] [place] [address] Dr. Naheed Hernandes EGFR-AF TUNISIAN 46 mL/min/1.73m2 Critically low >=60 [facility] Comment on above: Performed By: #### L IPA, CMP #### [facility] [address] [address] [address] Naheed Hernandes EGFR-NON AF TUNISIAN 38 mL/min/1.73m2 Critically low >=60 [facility] [place] Comment on above: Performed By: #### L IPA, CMP #### [facility] [address] [address] [address] Naheed Hernandes Globulin (S) [Mass/Vol] 3.7 g/dL Normal [facility] Comment on above: Performed By: #### L IPA, CMP #### [facility] [address] [address] [address] Naheed Hernandes Glucose [Mass/Vol] 109 mg/dL Critically high 74-106 [facility] Comment on above: Performed By: #### L IPA, CMP #### [facility] [address] [address] [address] Naheed Hernandes Potassium [Moles/Vol] 3.7 mmol/L Normal 3.4-5.0 [facility] Comment on above: Performed By: #### L IPA, CMP #### [facility] [address] [address] [address] Naheed Hernandes Protein [Mass/Vol] 7.6 g/dL Normal 6.1-8.2 [facility] Comment on above: Performed By: #### L IPA, CMP #### [facility] [address] [address] [address] Naheed Hernandes Sodium [Moles/Vol] 141 mmol/L Normal 137-145 [facility] Comment on above: Performed By: #### L IPA, CMP #### [facility] [address] [address] [address] Naheed Hernandes Urea nitrogen [Mass/Vol] 20.0 mg/dL Critically high 7.0-17.0 [facility] [place] Comment on above: Performed By: #### L IPA, CMP #### [facility] [address] [address] [address] Naheed Hernandes Urea nitrogen/Creatinin e [Mass ratio] 14.9 mg/mg Normal [facility] [place] Comment on above: Performed By: #### L IPA, CMP #### [facility] [address] [address] [address] Naheed Hernandes COVID-19 [facility] 06-05-2021 SARS-CoV-2 (COVID-19) RNA ANUP+probe Ql (Unsp spec) Negative Normal Negative [facility] Comment on above: Order Comment: Healt hcare Worker?: N Result Comment: Testing for SARS-CoV-2 by RT-PCR This test was developed and its performance characteristics determined by [employer] and validated at the [facility]. This test has not been FDA cleared [...] is terminated or revoked sooner. PERFORMED BY: [place] [address] PATHOLOGIST CONGRESSIONAL AIDE PETAR ARTEAGA M.D. Performed By: #### C OVID 19 [facility] #### [id number] [facility] Vital Signs Date Time Vital Sign Value Performing Clinician Faci lity 10-21-2023 10:26-0500 Body mass index (BMI) [Ratio] 18.78 kg/m2 Artis Rodriguez MD Work Phone: [facility] Healthcare 10-21-2023 10:26-0500 Body weight 48.08 kg Artis Rodriguez MD Work Phone: [facility] Healthcare Encounters Encounter Date Encounter Type Care Provider Facility Start: 10-31-2023 Telephone encounter December Morismadalyn ARGUETA [facility] Comment on above: Medication Question Start: 10-31-2023 End: 10-31-2023 ambulatory ARTIS RODRIGUEZ Not Available Start: 10-21-2023 End: 10-31-2023 Office outpatient visit 15 minutes Artis Rodriguez MD Work Phone: [facility] Comment on above: 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); DDD (degenerative disc disease), lumbar; BMI less than 19,adult; Delusions (CMS/HCC); Moderate protein-calorie malnutrition (CMS/HCC) Start: 08-22-2023 End: 08-22-2023 ambulatory ARTIS RODRIGUEZ Not Available Start: 01-21-2023 ambulatory JUDY Padgett FREYA Facility: [facility] Start: 11-26-2022 ambulatory JUDY L FREYA Facility: [facility] Start: 09-29-2022 End: 09-30-[address] ALMA ROSA OBREGON Facility: Start: 11-20-2021 End: 11-21-[address] ARTIS RODRIGUEZ Facility:[facility] Plan of Treatment Date Care Activity Detail Author Start: 08-22-2024 Medicare Annual Well ness (AWV) Medicare Annual Wellness (AWV) [facility] Start: 06-20-2018 Pneumococcal Vaccine : 65+ Years (2 - PCV) Pneumococcal Vaccine: 65+ Years (2 - PCV) [facility] Immunizations Immunization Date Immunization Notes Care Provider Fa cility 07-16-2023 SARS-COV-2 (COVID-19 ) vaccine, mRNA, spike protein, LNP, PF, 50 mcg/0.5 mL [facility] 07-02-2023 Influenza, Seasonal, Quadrivalent, Adjuvanted [facility] 07-09-2022 Influenza, High-dose Seasonal, Quadrivalent, Preservative Free [facility] 07-18-2020 Influenza, High-dose Seasonal, Quadrivalent, Preservative Free [facility] 07-13-2019 influenza, high dose seasonal, preservative-free [facility] 06-20-2017 influenza, injectabl e, quadrivalent, preservative free [facility] 06-20-2017 pneumococcal polysac charide vaccine, 23 valent [facility] 08-03-2016 influenza, injectabl e, quadrivalent, preservative free [facility] Payers Date Payer Category Payer Medicare [id number] [address] [facility] [address] [place] [id number] 2019-Present [address] [place] [address] [id number] 2007 Medicare MEDICARE MEDICAR E PART B [id number] 2007-[place] [address] Medicare [id number] 1959 Medicare [id number] 1959 Unknown [id number] 1942 Unknown [id number] 1942 Unknown [id number] 1942 Unknown [id number] 1942 Unknown [id number] 1942 Unknown [id number] 1942 Unknown [id number] 9 Social History Date Type Detail Facility Start: 05-03-2023 Tobacco smoking stat [facility] Ex-smoker [facility] History of tobacco use [...] Telephone encounter Note 10-31-2023 Telephone Encounter - Artis Rodriguez MD - 10/31/2023 1:34 PM EST Note Date & Type Note Facility 10-31-2023 Telephone encount er Note RX clarified and sent [facility] Note 10-31-2023 Telephone Encounter - Artis Rodriguez MD - 10/31/2023 1:34 PM ESTTelephone [...] the abilify. Please complete and resend rx. [facility] History of Present illness Narrative 10-21-2023 Artis Rodriguez MD - 10/21/2023 10:45 AM EST Note Date & Type Note Facility 10-21-2023 History of Presen t illness Narrative Patient ID: David Sears is a 83 y.o. female who presents for: She is here for reevaluation of her dementia, behavioral disturbances, and insomnia with roaming. Her dementia is significantly worse she can be in the moment with you but that's about as far as echo. She is having fixed delusions of people being inside her home, animals being inside her home, and similar events. Her daughter has a camera inside the home that tracks back to her cell phone. She is up and prowling around throughout the night. They have caught her attempting to do basic tasks and being obviously confused about how to proceed and struggling. When able back he will call her and nonchalant when asked how she is doing what's going on and hopefully be able to talk her through whatever task this is. Melatonin seems to not help. 2 nighttime Benadryl does seem to help some. As far as her chronic low back pain. Most of the time it is fairly tolerable. Her daughter has control of the OTC pain medications. Up to recently they have been working pretty much all the time. Intermittently now she has really bad days where she is needing more pain relief. The patient has with them today and independent historian, Her daughter and TIMOTHY Lizette. Independent historian is here to make sure that the information related to us in the HPI and review of systems is accurate. They are also here to help the patient to follow through with treatment plans established today. Review of Systems Constitutional: Positive for appetite change and unexpected weight change. Respiratory: Negative for cough and shortness of breath. Cardiovascular: Negative for chest pain, palpitations and leg swelling. Gastrointestinal: Negative for abdominal pain, constipation, diarrhea and nausea. Objective The patient is pleasant and in no acute distress. Appropriately dressed The head is normocephalic and atraumatic Although no formal testing is done, patient does appear to have a significant and gross neurologic deficit concerning memory and goal directed thinking during the interview. The patient has good eye contact and clear speech. Affect is appropriate. Visit Vitals Wt 106 lb BMI 18.78 kg/m OB Status Postmenopausal Smoking Status Former BSA 1.46 m PDMP reviewed and appropriate, Artis Rodriguez MD on 10/21/2023 10:13 AM Allergies Allergen Reactions Clarithromycin Other Reaction(s): syncope Penicillin G Other Reaction(s): hives Sulfamethoxazole-Trimethoprim Other Reaction(s): hives Current Outpatient Medications Medication Instructions ARIPiprazole (Abilify) 2 MG tablet tItrate from 1/2 tablet to 1 tablet as directed. calcium citrate 250 MG tablet 4 tablets, Oral, Daily cholecalciferol (VITAMIN D-3) 2,000 Units, Oral, Daily RT levothyroxine (SYNTHROID, LEVOXYL) 25 mcg, Oral, Daily before breakfast oxybutynin XL (DITROPAN-XL) 5 mg, Oral, Daily, Do not crush, chew, or split. PARoxetine (PAXIL) 10 mg, Oral, Every morning Assessment/Plan Diagnoses and all orders for this visit: Dementia with behavioral disturbance (CMS/HCC) The patient has significant dementia that is worsening. Her sleep is worsening. Seroquel actually made her quite worse. We discussed in a mutually agreed to a trial of some low dose aripiprazole. Her daughter understands that none of these are FDA approved for treatment and dementia. It is however more of a standard of care with the degree of delusion and out right hallucinations that she is having. DDD (degenerative disc disease), lumbar - oxyCODONE-acetaminophen (Percocet) 5-325 MG tablet; Take 0.5-1 tablets by mouth every 8 (eight) hours if needed for severe pain for up to 7 days Her daughter does control her pain medications so we are not as worried concerning opioid accidental misuse. Pain is a significant complaint that her mother gives her. After discussion she has had this prescription before and seems to tolerate it fairly well. Chronic problem, stable Evaluating the patient's electronic health record today, I specifically note the patient has 1 or more high risk medications. A high-risk medicine is one that may cause serious health problems if not taken the right way, or taken with another drug or food item that it may interact with. Treatment regimens are increasingly complex and potentially harmful, and people with High Risk Medications need regular review and prescribing optimisation. This also complicates all prescribing including prescription renewal consistant with a moderate or complex degree of decision making. This was done today and reviewed with the patient. In prescribing a new medication consideration of the following encompasses moderate decision making: the current prescriptions and supplements, the current allergies and medication intolerances, the current medical conditions, and potential drug interactions. Drug interaction screening is reviewed and there are moderate to major severity ratings to consider during prescription drug management. If the new medication is considered a controlled substance, then the OARRS and NARX scores are obtained and reviewed. Risks, benefits, and reason for starting their medication were discussed. The patient was given a chance to ask questions today and all questions were answered. The patient is to contact us, preferably by using the patient portal, or call if any other questions arise or if any problems occur with the adjustment in their medication. documented in this encounter [facility] Evaluation note Note Date & Type Note Facility Evaluation note Diagnosis Dementia with behavioral disturbance (CMS/HCC) Delusions (CMS/HCC) Unspecified paranoid state documented in this encounter [facility] Evaluation note Note Date & Type Note Facility Evaluation note Diagnosis Dementia with behavioral disturbance (CMS/HCC)- Primary DDD (degenerative disc disease), lumbar Degeneration of lumbar or lumbosacral intervertebral disc BMI less than 19,adult Delusions (CMS/HCC) Unspecified paranoid state Moderate protein-calorie malnutrition (CMS/HCC) documented in this encounter [facility] Summary Purpose Family History No Family History Records FoundNo Family History Records FoundNo Family History Records FoundNo Family History Records Found Advance Directives No Advanced Directives Records FoundNo Advanced Directives Records FoundNo Advanced Directives Records FoundNo Advanced Directives Records Found Additional Source Comments INFORMATION SOURCE (unrecogn ized section and content) DATE CREATED AUTHOR 10/13/2021 [facility] DATE CREATED AUTHOR AUTHOR'S ORGANIZ ATION 10/02/2022 [facility] DATE CREATED AUTHOR AUTHOR'S ORGANIZ ATION 11/27/2022 [facility] DATE CREATED AUTHOR AUTHOR'S ORGANIZ ATION 11/01/2023 [facility] EPIC Reason for Visit (unrecogniz ed section and content) Reason Onset Date Comments Medication Question 10/31/2023 Care Teams (unrecognized sec tion and content) Black Leather Trimmer Relationship Specialty Start Date End Date Artis Rodriguez MD [address] [place] [address] PCP - General Family Medicine 05/03/23 Black Leather Trimmer Relationship Specialty Start Date End Date Artis Rodriguez MD [address] [place] [address] PCP - General Family Medicine 05/03/23 FOR [...] BE BASED ON THE PRIMARY CLINICAL RECORDS. [facility]. provides no warranty or guarantee of the accuracy or completeness of information in this document.
--- NOTE | 2023-11-09 20:59 | CT_ITS ---
The [address] [address] Patient Name: SAM TOBAR MRN: [id number] date: 1940 Sex: F Assigned Patient Location: ER Current Patient Location: ER Accession/Order Number: [id number] Exam Date: 11/09/2023 21:40 Report Date: 11/09/2023 22:18 At the request of: PARI VALENTE Procedure: CT head/brain wo con EXAM: CT head/brain wo con CLINICAL INDICATION: Frequent falls TECHNIQUE: Unenhanced computerized tomography of the head was performed. Automated dose reduction technique was employed. COMPARISON: None. FINDINGS: The ventricles are normal in size, configuration, and position for age. There is no intra- or extra-axial mass, hemorrhage, or fluid collection. No areas of abnormal mass effect or attenuation are noted. There is stable mild subcortical, deep, and periventricular white matter low-attenuation, compatible with changes of chronic small vessel ischemic disease. Visualized paranasal sinuses are free of mucosal disease. No depressed calvarial fracture. CT/CT head/brain wo con IMPRESSION: No acute intracranial abnormality noted. Electronically authenticated by: LORA ESTEVES Date: 11/09/2023 22:18
--- NOTE | 2023-11-09 20:59 | XR_ITS ---
The [place] [id number] Patient Name: SAM TOBAR MRN: [id number] date: 1940 Sex: F Assigned Patient Location: ER Current Patient Location: ER Accession/Order Number: [id number] Exam Date: 11/09/2023 21:40 Report Date: 11/09/2023 22:20 At the request of: PARI VALENTE Procedure: XR shoulder RT min 2V 3 views of the right shoulder INDICATION: Fracture COMPARISON: 10/31/2023 XR/XR shoulder RT min 2V IMPRESSION: Redemonstration of comminuted displaced proximal right humerus fracture involving the surgical neck and greater tuberosity, similar to prior. Redemonstration of probable pseudosubluxation of the humeral head. Mild degenerative changes of the glenohumeral and acromioclavicular joints. Electronically authenticated by: LORA ESTEVES Date: 11/09/2023 22:20
--- NOTE | 2023-11-09 20:59 | XR_ITS ---
The [place] [id number] Patient Name: SAM TOBAR MRN: [id number] date: 1940 Sex: F Assigned Patient Location: ER Current Patient Location: ER Accession/Order Number: [id number] Exam Date: 11/09/2023 21:40 Report Date: 11/09/2023 22:24 At the request of: PARI VALENTE Procedure: XR pelvis 1-2V EXAM: XR pelvis 1-2V HISTORY: Frequent falls COMPARISON: 10/31/2023 TECHNIQUE: An AP view of the pelvis is performed. FINDINGS: There are new postoperative changes to the proximal right femur. No change in alignment to the impacted femoral neck fracture. The orthopedic hardware is intact. No additional acute fracture is seen. There are degenerative changes in the visualized lumbar spine. XR/XR pelvis 1-2V IMPRESSION: Postoperative changes to the right hip, new from the prior study. No additional acute abnormality. Electronically authenticated by: RANDY CHAWLA Date: 11/09/2023 22:24
--- NOTE | 2023-11-09 20:59 | CT_ITS ---
[facility] [place] [id number] Patient Name: SAM TOBAR MRN: [id number] date: 1940 Sex: F Assigned Patient Location: ER Current Patient Location: Accession/Order Number: [id number] Exam Date: 11/09/2023 21:40 Report Date: 11/09/2023 22:25 At the request of: PARI VALENTE Procedure: CT cervical spine wo con EXAM: CT cervical spine wo con HISTORY: Frequent falls COMPARISON: None. TECHNIQUE: Axial images were obtained through the cervical vertebral column without contrast enhancement. Sagittal and coronal reformations were provided. Dose reduction techniques were achieved by using automated exposure control and/or adjustment of mA and/or kV according to patient size and/or use of iterative reconstruction technique COMMENT: The lack of intradural contrast and streak artifact from bone about the vertebral column limit evaluation for disc protrusion, bulge and the spinal canal in general. FINDINGS: The bones are osteopenic. No CT evidence of an acute fracture, subluxation or significant loss of vertebral body height. Loss of disc space and endplate osteophyte formation are noted at the C5-C6 and C6-C7 levels. There is also vacuum disc phenomenon at C5-C6. No malalignment at the craniocervical junction. While assessment is again suboptimal on this noncontrast CT, there appear to be areas of canal narrowing due to disc bulging and endplate osteophyte formation. Uncovertebral spurring and hypertrophic change of the facet joints also results in areas of foraminal stenosis. CT/CT cervical spine wo con IMPRESSION: 1. Osteopenia. 2. Degenerative change of the cervical vertebral column without CT evidence of an acute fracture. 3. If there is further clinical indication to evaluate the spinal canal, cord or for ligamentous injury consider MRI as it would be more sensitive. Electronically authenticated by: TE FERNANDEZ Date: 11/09/2023 22:25
--- NOTE | 2023-11-09 20:59 | ECG_ITS ---
[facility] Test Date: 2023-11-09 Pat Name: SAM TOBAR Department: Room: - Gender: Female Primer Boxer: : 1940 Requested By: CHASTITY RODRIGUEZ Order Number: [id number] Reading MD: TATA OSORIO Measurements Intervals [place] Rate: 72 P: 90 DE: 140 QRS: 67 QRSD: 76 T: 54 QT: 386 QTc: 411 Interpretive Statements 1100 Sinus rhythm 2420 RSR (QR) in lead V1/V2, consistent with right ventricular conduction delay 9130 borderline ECG Compared to ECG 11/01/2023 04:35:08 No significant changes Electronically Signed On 11-09-2023 22:50:12 EST by TATA OSORIO
--- NOTE | 2023-11-09 20:59 | XR_ITS ---
The [address] [address] Patient Name: SAM TOBAR MRN: [id number] date: 1940 Sex: F Assigned Patient Location: ER Current Patient Location: ER Accession/Order Number: [id number] Exam Date: 11/09/2023 21:40 Report Date: 11/09/2023 22:19 At the request of: PARI VALENTE Procedure: XR chest 1V EXAM: CHEST 1 VIEW HISTORY: Frequent falls TECHNIQUE: Chest, one view. COMPARISON: 10/23/2023 FINDINGS: Lungs are hyperinflated. No focal consolidation, pleural effusion, or pneumothorax. Pulmonary vasculature is within normal limits. Cardiomediastinal silhouette is normal. Partially visualized acute comminuted proximal right humerus fracture with pseudosubluxation, better seen on previous shoulder radiographs. XR/XR chest 1V IMPRESSION: 1. No acute cardiopulmonary disease. 2. Partially visualized acute comminuted proximal right humerus fracture. Correlate with dedicated shoulder radiographs. Electronically authenticated by: GUIDO BASS Date: 11/09/2023 22:19
--- NOTE | 2023-11-09 21:02 | ED_ITS ---
HPI - General Adult General Chief complaint: Fall Stated complaint: FALL Time Seen by Provider: 11/09/23 20:59 Source: patient and EMR Mode of arrival: ambulance Limitations: no limitations and physical limitation History of Present Illness HPI narrative: 83 year old female presents to the ED from her ECF for frequent falls. She has fallen 5-6 times in the past few days. She has hx dementia. Daughter states she does not remember that she cannot get out of bed. She was admitted on 11/09/23 for fractures to her right hip and right humerus s/p fall. Pt is a poor historian. She is complaining of pain to her right shoulder area. A sling is in place to the right arm. Denies pain to her head, neck, back, chest, abdomen, BLE. She has alyssa in place to her right lateral hip area. Denies fever, chills. Pt was soiled with stool upon arrival. Related Data Home Medications ?Medication ?Instructions ?Recorded ?Confirmed levothyroxine 25 mcg tablet 25 mcg PO DAILY 10/31/23 10/31/23 oxybutynin chloride 5 mg 5 mg PO DAILY 10/31/23 10/31/23 tablet,extended release 24 hr paroxetine HCl 10 mg tablet 10 mg PO DAILY 10/31/23 10/31/23 Previous Rx's ?Medication ?Instructions ?Recorded enoxaparin 30 mg/0.3 mL 30 mg (0.3 mL) subcut DAILY 42 11/03/23 subcutaneous syringe (Lovenox) days #12.6 mL oxycodone-acetaminophen 5 mg-325 1 tab PO Q8H PRN pain #14 tabs 11/03/23 mg tablet Allergies Allergy/AdvReac Type Severity Reaction Status Date / Time Penicillins AdvReac Mild Verified 11/09/23 21:01 Review of Systems ROS Constitutional Denies: fever or chills Ears, nose, mouth, and throat Denies: neck pain Cardiovascular Denies: chest pain Respiratory Denies: shortness of breath or cough Gastrointestinal Reports: diarrhea; Denies: abdominal pain, nausea or vomiting Musculoskeletal Reports: extremity pain; Denies: back pain or neck pain Integumentary/Breast Denies: rash or itching Neurological Denies: headache, numbness in extremities or dizziness PFSH PFS Medical History (Updated 11/09/23 @ 22:50 by Sarah Rahman) CKD (chronic kidney disease) stage 3, GFR 30-59 ml/min ?N18.30 - Chronic kidney disease, stage 3 unspecified (ICD-10) Underweight ?R63.6 - Underweight (ICD-10) OAB (overactive bladder) ?N32.81 - Overactive bladder (ICD-10) Dementia ?F03.90 - Unspecified dementia, unspecified severity, without behavioral disturbance, psychotic disturbance, mood disturbance, and anxiety (ICD-10) Hypothyroid ?E03.9 - Hypothyroidism, unspecified (ICD-10) Surgical History (Updated 10/31/23 @ 21:00 by Ruma Reddy, NESTOR) History of hysterectomy ?Z90.710 - Acquired absence of both cervix and uterus (ICD-10) Family History (Updated 10/31/23 @ 21:02 by Ruma Reddy RN) Mother Family history of cancer Father Family history of cancer Sister Family history of cancer Social History (Updated 10/31/23 @ 21:03 by Ruma Reddy RN) Within the past year, how often did you have a drink containing alcohol: never Score interpretation: A score less than 3 is consistent with normal alcohol consumption. Smoking status: Never smoker Non-prescribed substance use: denies use Previous occupational history: cleaning Highest level of school completed/degree received: high school graduate Are you now , , , , never or living with a partner: In a typical week, how many times do you talk on the telephone with family, friends, or neighbors: 3 or more times per week How often do you get together with friends or relatives: 3 or more times per week How often do you attend latter day or restorationist services: 1-3 times per year Do you belong to any clubs or organizations such as latter day groups unions, fraternal or athletic groups, or school groups: no Total score: 1 Score interpretation: A score of less than or equal to 1 indicates the most socially isolated. Little interest or pleasure in doing things: not at all Feeling down, depressed, or hopeless: not at all Feel stressed/tense/nervous/anxious/difficulty sleeping: not at all Do you think of yourself as: straight/heterosexual Gender Identity: female Exam Constitutional Vital Signs, click to edit/add: Last Vital Signs Temp 98.9 F 11/09/23 20:49 Pulse 85 11/09/23 20:49 Resp 14 11/09/23 20:49 BP 152/52 H 11/09/23 20:49 Pulse Ox 98 11/09/23 20:49 O2 Del Method Room Air 11/09/23 20:49 Common normals: no apparent distress and alert General appearance: cooperative HENMT Common normals: normocephalic, head/scalp atraumatic and external ears normal Mouth: oral and palatal mucosa normal, lip normal and tongue normal Throat: posterior oropharynx normal Eye Common normals: PERRL, EOMs intact bilaterally, conjunctivae normal and no scleral icterus Neck & C-Spine Common normals: supple Cervical spine: no cervical spine tenderness and no paracervical muscle tenderness Chest Common normals: inspection of chest normal and palpation of chest normal Chest: symmetrical chest wall rise Respiratory Common normals: normal respiratory effort, no use of accessory muscles and clear to auscultation bilaterally Effort & inspection: able to speak in complete sentences and symmetric chest movement Cardio Common normals: regular rate and regular rhythm Peripheral pulses: radial pulses present, posterior tibial pulses present and dorsalis pedis pulses present GI Common normals: Normal to inspection, nondistended, normoactive bowel sounds present, soft to palpation and non-tender Back & Pelvis Thoracic spine/upper back: normal to inspection; no thoracic spinal tenderness and no paraspinal muscle tenderness Lumbar spine/lower back: abnormal to inspection, no lumbar spinal tenderness and no paraspinal muscle tenderness Extremity Other: Ecchymosis to right upper arm. Alyssa in place to right lateral hip. No erythema or drainage. Appears to be healing well. Tenderness to right upper arm and right hip area; pt has previous fractures to the area. Denies tenderness to LUE, left hip, bilateral knees. Neuro Common normals: CN's II-XII intact bilaterally and moves all extremities Sensorium/orientation: awake and alert Speech: speech normal Other: Pt has generalized weakness. Pt oriented only to situation. Course Vital Signs Vital signs: Vital Signs Temperature 98.9 F 11/09/23 20:49 Pulse Rate 85 11/09/23 20:49 Respiratory Rate 14 11/09/23 20:49 Blood Pressure 152/52 H 11/09/23 20:49 Pulse Oximetry 98 11/09/23 20:49 Oxygen Delivery Method Room Air 11/09/23 20:49 Temperature 98.9 F 11/09/23 20:49 Pulse Rate 85 11/09/23 20:49 Respiratory Rate 14 11/09/23 20:49 Blood Pressure 152/52 H 11/09/23 20:49 Pulse Oximetry 98 11/09/23 20:49 Oxygen Delivery Method Room Air 11/09/23 20:49 Medical Decision Making MDM Narrative Medical decision making narrative: CBC and BMP were unremarkable when compared to previous. CT scans of the head and cervical spine were negative for acute findings. X-rays of the right humerus were unchanged. X-rays of the pelvis were negative for acute findings. The patient will be discharged back to [facility]. Follow up with pcp for further evaluation and treatment. Medical Records Medical records reviewed: Yes I reviewed the patient's medical records Lab Data Lab results reviewed: Yes I reviewed the patient's lab results Labs: Lab Results 11/09/23 Range/Units 21:19 WBC 9.5 (4.0-11.0) 10^3/uL RBC 3.86 L (4.20-5.40) 10^6/uL Hgb 11.9 L (12.0-16.0) g/dL Hct 36.5 (36.0-48.0) % MCV 94.6 (81.0-99.0) fL MCH 30.8 (26.7-34.0) pg MCHC 32.6 (29.9-35.2) g/dL RDW 13.6 (11.0-15.0) % Plt Count 441 (150-450) 10^3/uL MPV 8.7 L (9.5-13.5) fL Neut % (Auto) 76.4 H (43.0-75.0) % Lymph % (Auto) 8.6 L (20.5-60.0) % [place] % (Auto) 12.2 H (1.7-12.0) % Eos % (Auto) 1.9 (0.9-7.0) % Baso % (Auto) 0.4 (0.2-2.0) % Neut # (Auto) 7.2 H (1.4-6.5) 10^3/uL Lymph # (Auto) 0.8 L (1.2-3.8) 10^3/uL [place] # (Auto) 1.2 H (0.3-0.8) 10^3/uL Eos # (Auto) 0.2 (0.0-0.7) 10^3/uL Baso # (Auto) 0.0 (0.0-0.1) 10^3/uL Abs Immat Gran (auto) 0.05 H (0.00-0.03) 10^3/uL Imm/Tot Granulo (auto) 0.5 (0.0-0.5) % Sodium 140 (136-145) mmol/L Potassium 3.6 (3.5-5.1) mmol/L Chloride 102 (98-107) mmol/L Carbon Dioxide 29.0 (21.0-32.0) mmol/L Anion Gap 12.6 BUN 26.0 H (7.0-18.0) mg/dL Creatinine 1.04 H (0.55-1.02) mg/dL Est GFR ( Amer) >60 (>=60) Est GFR (Non-Af Amer) 51 L (>=60) BUN/Creatinine Ratio 25.0 Glucose 112 H (74-106) mg/dL Calcium 9.1 (8.5-10.1) mg/dL Total Bilirubin 1.1 H (0.2-1.0) mg/dL AST 26 (15-37) U/L ALT 25 (14-59) U/L Alkaline Phosphatase 107 (46-116) U/L Total Protein 7.0 (6.4-8.2) g/dL Albumin 3.2 L (3.4-5.0) g/dL Globulin 3.8 g/dL Albumin/Globulin Ratio 0.[address] scan - head: Radiologist's impression: ITS Impressions Cervical Spine CT 11/09/23 20:59 IMPRESSION: 1. Osteopenia. 2. Degenerative change of the cervical vertebral column without CT evidence of an acute fracture. 3. If there is further clinical indication to evaluate the spinal canal, cord or for ligamentous injury consider MRI as it would be more sensitive. Electronically authenticated by: TE FERNANDEZ Date: 11/09/2023 22:25 Chest X-Ray 11/09/23 20:59 IMPRESSION: 1. No acute cardiopulmonary disease. 2. Partially visualized acute comminuted proximal right humerus fracture. Correlate with dedicated shoulder radiographs. Electronically authenticated by: GUIDO BASS Date: 11/09/2023 22:[address] 11/09/23 20:59 IMPRESSION: No acute intracranial abnormality noted. Electronically authenticated by: LORA ESTEVES Date: 11/09/2023 22:18 Pelvis X-Ray 11/09/23 20:59 IMPRESSION: Postoperative changes to the right hip, new from the prior study. No additional acute abnormality. Electronically authenticated by: RANDY CHAWLA Date: 11/09/2023 22:24 Shoulder X-Ray 11/09/23 20:59 IMPRESSION: Redemonstration of comminuted displaced proximal right humerus fracture involving the surgical neck and greater tuberosity, similar to prior. Redemonstration of probable pseudosubluxation of the humeral head. Mild degenerative changes of the glenohumeral and acromioclavicular joints. Electronically authenticated by: LORA ESTEVES Date: 11/09/2023 22:20 Discharge Plan Discharge Stand Alone Forms: Portal Instructions Chief Complaint: Fall Clinical Impression: S/P right hip fracture, Falls frequently, Closed right humeral fracture Patient Disposition: Home, Self-Care Time of Disposition Decision: 22:50 Condition: Good Mode of Transportation: EMS Prescriptions / Home Meds: No Action oxybutynin chloride 5 mg tablet extended release 24hr 5 mg PO DAILY levothyroxine 25 mcg tablet 25 mcg PO DAILY paroxetine HCl 10 mg tablet 10 mg PO DAILY oxycodone-acetaminophen 5-325 mg tablet 1 tab PO Q8H PRN (Reason: pain) Qty: 14 0RF enoxaparin [Lovenox] 30 mg/0.3 mL syringe 30 mg subcut DAILY 42 Days Qty: 12.6 0RF Print Language: Kenyan Instructions: Fall Prevention for Older Adults (ED) Referrals: CHASTITY RODRIGUEZ [Primary Care Provider] - 1 week Discharge Date/Time: 11/10/23 00:07
[2023-11-09 21:20] VITALS: PULSE 72
[2023-11-09 21:28] LABS: Basophils Percent Auto 0.4 % (0.2-2.0); Eosinophils Absolute Auto 0.2 10^3/uL (0.0-0.7); Eosinophils Percent Auto 1.9 % (0.9-7.0); Hematocrit 36.5 % (36.0-48.0); Hemoglobin 11.9 g/dL (12.0-16.0); Immature Granulocytes Abs Auto 0.05 10^3/uL (0.00-0.03); Immature Granulocytes Pct Auto 0.5 % (0.0-0.5); Lymphocytes Absolute Auto 0.8 10^3/uL (1.2-3.8); Lymphocytes Percent Auto 8.6 % (20.5-60.0); Mean Corpuscular HGB Conc 32.6 g/dL (29.9-35.2); Mean Corpuscular Hemoglobin 30.8 pg (26.7-34.0); Mean Corpuscular Volume 94.6 fL (81.0-99.0); Mean Platelet Volume 8.7 fL (9.5-13.5); Monocytes Absolute Auto 1.2 10^3/uL (0.3-0.8); Monocytes Percent Auto 12.2 % (1.7-12.0); Neutrophils Absolute Auto 7.2 10^3/uL (1.4-6.5); Neutrophils Percent Auto 76.4 % (43.0-75.0); Platelet Count 441 10^3/uL (150-450); Red Blood Count 3.86 10^6/uL (4.20-5.40); Red Cell Distribution Width 13.6 % (11.0-15.0); White Blood Count 9.5 10^3/uL (4.0-11.0)
[2023-11-09 21:46] LABS: Alanine Aminotransferase 25 U/L (14-59); Albumin Globulin Ratio 0.8; Albumin Level 3.2 g/dL (3.4-5.0); Alkaline Phosphatase 107 U/L (46-116); Anion Gap 12.6; Aspartate Amino Transferase 26 U/L (15-37); Bilirubin Total 1.1 mg/dL (0.2-1.0); Calcium 9.1 mg/dL (8.5-10.1); Chloride 102 mmol/L (98-107); Estimated GFR (African America >60 (>=60); Estimated GFR (Non-African Ame 51 (>=60); Globulin 3.8 g/dL; Glucose 112 mg/dL (74-106); Potassium 3.6 mmol/L (3.5-5.1); Sodium 140 mmol/L (136-145)
== END 2023-11-10 00:07 | disposition home or self-care (01) ==
PROVIDERS: Nurse Practitioner Family; Emergency Provider Internal Medicine; PCP Family Medicine
DX: S42.201D Unspecified fracture of upper end of right humerus, subsequent encounter for fracture with routine healing (principal); S72.8X1D Other fracture of right femur, subsequent encounter for closed fracture with routine healing; F03.90 Unspecified dementia, unspecified severity, without behavioral disturbance, psychotic disturbance, mood disturbance, and anxiety; E03.9 Hypothyroidism, unspecified; Z90.710 Acquired absence of both cervix and uterus; N32.81 Overactive bladder; N18.30 Chronic kidney disease, stage 3 unspecified; W19.XXXD Unspecified fall, subsequent encounter; Z91.81 History of falling; Z87.81 Personal history of (healed) traumatic fracture; Z79.890 Hormone replacement therapy; Z79.899 Other long term (current) drug therapy
CPT/HCPCS: 36415; 70450; 71045; 72125; 72170; 73030; 80053; 85025; 93005; 99285

== ENCOUNTER 2023-11-21 10:10 | Outpatient (OUT) | payer MEDICARE, OTHER, SELFPAY ==
--- NOTE | 2023-11-21 | XR_ITS ---
[facility] [place] [id number] Patient Name: SAM TOBAR MRN: [id number] date: 1940 Sex: F Assigned Patient Location: Current Patient Location: Accession/Order Number: [id number] Exam Date: 11/21/2023 10:10 Report Date: 11/21/2023 14:07 At the request of: CRYS BEAN Procedure: XR hip RT 2V w/ pelvis PROCEDURE: XR hip RT 2V w/ pelvis COMPARISON: 10/31/2023 HISTORY: RIGHT HIP PAIN FINDINGS: BONES:[Reduction internal fixation of a right subcapital hip fracture. No new fracture or dislocation. SOFT TISSUES:Negative. No visible soft tissue swelling. EFFUSION:None visible. OTHER: Lateral thigh surgical skin lacy XR/XR hip RT 2V w/ pelvis IMPRESSION: Open reduction internal fixation of a right subcapital hip fracture Electronically authenticated by: REBECCA MOORE Date: 11/21/2023 14:07
--- NOTE | 2023-11-21 | XR_ITS ---
The [address] [address] Patient Name: SAM TOBAR MRN: [id number] date: 1940 Sex: F Assigned Patient Location: Current Patient Location: Accession/Order Number: [id number] Exam Date: 11/21/2023 10:10 Report Date: 11/21/2023 13:27 At the request of: CRYS BEAN Procedure: XR shoulder RT min 2V PROCEDURE: XR shoulder RT min 2V COMPARISON: 11/09/2023 HISTORY: RIGHT SHOULDER PAIN FINDINGS: BONES:Stable complex intra-articular fracture of the right humeral head and neck with overriding of the humeral diaphysis measuring 2.4 cm. Interval increase in sclerosis with callus formation. The glenohumeral joint is intact . 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 No visible soft tissue swelling. EFFUSION:None visible. OTHER: Negative. XR/XR shoulder RT min 2V IMPRESSION: Stable healing complex humeral head and neck fracture Electronically authenticated by: REBECCA MOORE Date: 11/21/2023 13:27
--- OUTSIDE RECORDS SUMMARY | 2023-11-21 10:12 | XMS_ITS | CCD ---
Author Name Unknown Address [address] 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 Role Phone DR ARTIS RODRIGUEZ Admitting [...] Unavailable Artis Rodriguez MD Primary Care Provider [phone] ARTIS RODRIGUEZ Attending Unavailable ARTIS RODRIGUEZ Attending Unavailable Allergies Allergy Classification Reported Allergen(s) Allergy Type Date of Onset Reaction(s) Facility (1 source) donepezil Drug Allergy [facility] (1 source) Penicillins Drug allergy (disorder) 3 [facility] (1 source) Sulfonamides (Antibiotic) Drug allergy (disorder) 3 [facility] (3 sources) Clarithromycin Allergy to substance 3 [facility] (3 sources) Penicillin G Drug Allergy 3 [facility] (3 sources) Sulfamethoxazole / Trimethoprim Drug Allergy 3 [facility] Medications Current Medications Medication Drug Class(es) [...] 09-29-2022 BASO # 0.0 103/ul Normal 0.0-0.1 [facility] Comment on above: Performed By: #### C BC #### [facility] [address] [place] [address] Dr. Naheed Hernandes Basophils/100 WBC (Bld) 0.7 % Normal 0.2-2.0 [facility] Comment on above: Performed By: #### C BC #### [facility] [address] [place] [address] Dr. Naheed Hernandes EO # 0.1 103/ul Normal 0.0-0.7 [facility] Comment on above: Performed By: #### C BC #### [facility] [address] [place] [address] Dr. Naheed Hernandes Eosinophils/100 WBC (Bld) 2.2 % Normal 0.9-7.0 [facility] Comment on above: Performed By: #### C BC #### [facility] [address] [place] [address] Dr. Naheed Hernandes Erythrocyte distribution width (RBC) [Ratio] 13.2 % Normal 11.0-15.0 [facility] Comment on above: Performed By: #### C BC #### [facility] [address] [place] [address] Dr. Naheed Hernandes Hematocrit (Bld) [Volume fraction] 43.2 % Normal 36.0-48.0 [facility] Comment on above: Performed By: #### C BC #### [facility] [address] [place] [address] Dr. Naheed Hernandes Hemoglobin (Bld) [Mass/Vol] 14.0 g/dL Normal 12.0-16.0 [facility] Comment on above: Performed By: #### C BC #### [facility] [address] [place] [address] Dr. Naheed Hernandes IG # 0.01 10e3/ul Normal 0.00-0.03 [facility] Comment on above: Performed By: #### C BC #### [facility] [address] [place] [address] Dr. Naheed Hernandes IG % 0.2 % Normal 0.0-0.5 [facility] Comment on above: Performed By: #### C BC #### [facility] [address] [place] [address] Dr. Naheed Hernandes LYMPH # 1.0 103/ul Critically low 1.2-3.8 [facility] Comment on above: Performed By: #### C BC #### [facility] [address] [place] [address] Dr. Naheed Hernandes Lymphocytes/100 WBC (Bld) 17.4 % Critically low 20.5-60.0 [facility] Comment on above: Performed By: #### C BC #### [facility] [address] [place] [address] Dr. Naheed Hernandes MANUAL DIFF REQ NO Normal [facility] Comment on above: Performed By: #### C BC #### [facility] [address] [place] [address] Dr. Naheed Hernandes MCH (RBC) [Entitic mass] 30.0 pg Normal 26.7-34.0 [facility] Comment on above: Performed By: #### C BC #### [facility] [address] [place] [address] Dr. Naheed Hernandes MCHC (RBC) [Mass/Vol] 32.4 g/dL Normal 29.9-35.2 [facility] Comment on above: Performed By: #### C BC #### [facility] [address] [address] [address] Naheed Hernandes MCV (RBC) [Entitic vol] 92.7 fL Normal 81.0-99.0 [facility] Comment on above: Performed By: #### C BC #### [facility] [address] [address] [address] Naheed Hernandes MONO # 0.5 103/ul Normal 0.3-0.8 [facility] Comment on above: Performed By: #### C BC #### [facility] [address] [address] [address] Naheed Hernandes Monocytes/100 WBC (Bld) 8.5 % Normal 1.7-12.0 [facility] Comment on above: Performed By: #### C BC #### [facility] [address] [address] [address] Naheed Hernandes NEUT # 4.2 103/ul Normal 1.4-6.5 [facility] Comment on above: Performed By: #### C BC #### [facility] [address] [address] [address] Naheed Hernandes Neutrophils/100 WBC (Bld) 71.0 % Normal 43.0-75.0 [facility] Comment on above: Performed By: #### C BC #### [facility] [address] [address] [address] Naheed Hernandes Platelet mean volume (Bld) [Entitic vol] 9.3 fL Critically low 9.5-13.5 [facility] Comment on above: Performed By: #### C BC #### [facility] [address] [address] [address] Naheed Hernandes PLT 242 103/ul Normal 150-450 [facility] Comment on above: Performed By: #### C BC #### [facility] [address] [address] [address] Naheed Hernandes RBC 4.66 106/ul Normal 4.20-5.40 [facility] Comment on above: Performed By: #### C BC #### [facility] [address] [address] [address] Naheed Hernandes WBC 5.9 103/ul Normal 4.0-11.0 [facility] Comment on above: Performed By: #### C BC #### [facility] [address] [address] [address] Naheed Hernandes FREE T3on 09-29-2022 FREE T3 2.15 pg/mlL Critically low 2.18-3.98 [facility] Comment on above: Performed By: #### L IPID, TSH, FT3, CMP #### [facility] [address] [address] [address] Naheed Hernandes FREE T4on 09-29-2022 Free T4 [Mass/Vol] 1.28 ng/dL Normal 0.76-1.46 [facility] Comment on above: Performed By: #### F T4, VITAD #### [facility] [address] [place] [address] Dr. Naheed Hernandes LIPID PROFILEon 09-29-2022 CHOL-HDL RATIO NORM SEE BELOW Normal [facility] Comment on above: Result Comment: 3.3 - 4.4 LOW RISK 4.4 - 7.1 AVERAGE RISK 7.1 - 11.0 MODERATE RISK >11.0 HIGH RISK Performed By: #### L IPID, TSH, FT3, CMP #### [facility] [address] [place] [address] Dr. Naheed Hernandes Cholesterol [Mass/Vol] 186 mg/dL Normal <=200 [facility] Comment on above: Performed By: #### L IPID, TSH, FT3, CMP #### [facility] [address] [address] [address] Naheed Hernandes Cholesterol in HDL [Mass/Vol] 70 mg/dL Critically high 40-60 [facility] Comment on above: Performed By: #### L IPID, TSH, FT3, CMP #### [facility] [address] [address] [address] Naheed Hernandes Cholesterol in LDL [Mass/Vol] 98.8 mg/dL Normal [facility] Comment on above: Performed By: #### L IPID, TSH, FT3, CMP #### [facility] [address] [address] [address] Naheed Hernandes Cholesterol.total/ Cholesterol in HDL [Mass ratio] 2.7 {ratio} Normal [facility] Comment on above: Performed By: #### L IPID, TSH, FT3, CMP #### [facility] [address] [address] [address] Naheed Hernandes HDL NORMAL > or = 60 mg/dl - LO W CARDIOVASCULAR RISK <40 mg/dl - HIGH CARDIOVASCULAR RISK Normal [facility] Comment on above: Performed By: #### L IPID, TSH, FT3, CMP #### [facility] [address] [address] [address] Naheed Hernandes LDL CALC NORMAL SEE BELOW Normal [facility] Comment on above: Result Comment: <100 mg/dl OPTIMAL 100 - 129 mg/dl NEAR OR ABOVE OPTIMAL 130 - 159 mg/dl BORDERLINE HIGH 160 - 189 mg/dl HIGH >190 mg/dl VERY HIGH Performed By: #### L IPID, TSH, FT3, CMP #### [facility] [address] [address] [address] Naheed Hernandes Triglyceride [Mass/Vol] 86 mg/dL Normal <=150 [facility] Comment on above: Performed By: #### L IPID, TSH, FT3, CMP #### [facility] [address] [address] [address] Naheed Hernandes VLDL CALC 17.2 mg/dL Normal [facility] Comment on above: Performed By: #### L IPID, TSH, FT3, CMP #### [facility] [address] [address] [address] Naheed Hernandes PROF 14(COMP METB)on 023 Albumin [Mass/Vol] 3.7 g/dL Normal 3.4-5.0 [facility] Comment on above: Performed By: #### L IPID, TSH, FT3, CMP #### [facility] [address] [place] [address] Dr. Naheed Hernandes Albumin/Globulin [Mass ratio] 1.1 {ratio} Normal [facility] Comment on above: Performed By: #### L IPID, TSH, FT3, CMP #### [facility] [address] [place] [address] Dr. Naheed Hernandes ALP [Catalytic activity/Vol] 90 U/L Normal 46-116 [facility] Comment on above: Performed By: #### L IPID, TSH, FT3, CMP #### [facility] [address] [place] [address] Dr. Naheed Hernandes ALT [Catalytic activity/Vol] 14 U/L Normal 14-59 [facility] Comment on above: Performed By: #### L IPID, TSH, FT3, CMP #### [facility] [address] [place] [address] Dr. Naheed Hernandes Anion gap [Moles/Vol] 7.6 mmol/L Normal [facility] Comment on above: Performed By: #### L IPID, TSH, FT3, CMP #### [facility] [address] [place] [address] Dr. Naheed Hernandes AST [Catalytic activity/Vol] 25 U/L Normal 15-37 [facility] Comment on above: Performed By: #### L IPID, TSH, FT3, CMP #### [facility] [address] [place] [address] Dr. Naheed Hernandes Bilirubin [Mass/Vol] 1.4 mg/dL Critically high 0.2-1.0 [facility] Comment on above: Performed By: #### L IPID, TSH, FT3, CMP #### [facility] [address] [place] [address] Dr. Naheed Hernandes Calcium [Mass/Vol] 9.0 mg/dL Normal 8.5-10.1 [facility] Comment on above: Performed By: #### L IPID, TSH, FT3, CMP #### [facility] [address] [place] [address] Dr. Naheed Hernandes Chloride [Moles/Vol] 103 mmol/L Normal 98-107 [facility] Comment on above: Performed By: #### L IPID, TSH, FT3, CMP #### [facility] [address] [place] [address] Dr. Naheed Hernandes CO2 [Moles/Vol] 32.2 mmol/L Critically high 21.0-32.0 [facility] Comment on above: Performed By: #### L IPID, TSH, FT3, CMP #### [facility] [address] [place] [address] Dr. Naheed Hernandes Creatinine [Mass/Vol] 1.05 mg/dL Critically high 0.55-1.02 [facility] Comment on above: Performed By: #### L IPID, TSH, FT3, CMP #### [facility] [address] [place] [address] Dr. Naheed Hernandes EGFR-AF FINNISH >60 Normal >=60 [facility] Comment on above: Performed By: #### L IPID, TSH, FT3, CMP #### [facility] [address] [place] [address] Dr. Naheed Hernandes EGFR-NON AF FINNISH 50 mL/min/1.73m2 Critically low >=60 [facility] Comment on above: Performed By: #### L IPID, TSH, FT3, CMP #### [facility] [address] [place] [address] Dr. Naheed Hernandes Globulin (S) [Mass/Vol] 3.4 g/dL Normal [facility] Comment on above: Performed By: #### L IPID, TSH, FT3, CMP #### [facility] [address] [place] [address] Dr. Naheed Hernandes Glucose [Mass/Vol] 85 mg/dL Normal 74-106 [facility] Comment on above: Performed By: #### L IPID, TSH, FT3, CMP #### [facility] [address] [place] [address] Dr. Naheed Hernandes Potassium [Moles/Vol] 3.8 mmol/L Normal 3.5-5.1 [facility] Comment on above: Performed By: #### L IPID, TSH, FT3, CMP #### [facility] [address] [place] [address] Dr. Naheed Hernandes Protein [Mass/Vol] 7.1 g/dL Normal 6.4-8.2 [facility] Comment on above: Performed By: #### L IPID, TSH, FT3, CMP #### [facility] [address] [place] [address] Dr. Naheed Hernandes Sodium [Moles/Vol] 139 mmol/L Normal 136-145 [facility] Comment on above: Performed By: #### L IPID, TSH, FT3, CMP #### [facility] [address] [place] [address] Dr. Naheed Hernandes Urea nitrogen [Mass/Vol] 16.0 mg/dL Normal 7.0-18.0 [facility] Comment on above: Performed By: #### L IPID, TSH, FT3, CMP #### [facility] [address] [place] [address] Dr. Naheed Hernandes Urea nitrogen/Creatinin e [Mass ratio] 15.2 mg/mg Normal [facility] Comment on above: Performed By: #### L IPID, TSH, FT3, CMP #### [facility] [address] [place] [address] Dr. Naheed Hernandes TSHon 09-29-2022 TSH 1.283 uIU/mL Normal 0.358-3.740 [facility] Comment on above: Performed By: #### L IPID, TSH, FT3, CMP #### [facility] [address] [place] [address] Dr. Naheed Hernandes VITAMIN D 25 OHon 09-29-2022 VIT D 25-OH 78.0 ng/mL Normal [facility] Comment on above: Performed By: #### F T4, VITAD #### [facility] [address] [place] [address] Dr. Naheed Hernandes VIT D RANGES SEE BELOW Normal [facility] Comment on above: Result Comment: <20 ng/mL Vit D deficient 20 - <30 ng/mL Vit D insufficient 30 - 100 ng/mL Vit D sufficient >100 ng/mL Potential Toxicity Performed By: #### F T4, VITAD #### [facility] [address] [address] [address] Naheed Hernandes CBC AUTO DIFFon 11-20-2021 BASO # 0.0 103/ul Normal 0.0-0.1 [facility] Comment on above: Performed By: #### C BC #### [facility] [address] [address] [address] Naheed Hernandes Basophils/100 WBC (Bld) 0.6 % Normal 0.2-2.0 [facility] Comment on above: Performed By: #### C BC #### [facility] [address] [place] [address] Dr. Naheed Hernandes EO # 0.1 103/ul Normal 0.0-0.7 [facility] Comment on above: Performed By: #### C BC #### [facility] [address] [place] [address] Dr. Naheed Hernandes Eosinophils/100 WBC (Bld) 1.9 % Normal 0.9-7.0 [facility] Comment on above: Performed By: #### C BC #### [facility] [address] [place] [address] Dr. Naheed Hernandes Erythrocyte distribution width (RBC) [Ratio] 13.3 % Normal 11.0-15.0 [facility] Comment on above: Performed By: #### C BC #### [facility] [address] [place] [address] Dr. Naheed Hernandes Hematocrit (Bld) [Volume fraction] 43.7 % Normal 36.0-48.0 [facility] Comment on above: Performed By: #### C BC #### [facility] [address] [place] [address] Dr. Naheed Hernandes Hemoglobin (Bld) [Mass/Vol] 14.2 g/dL Normal 12.0-16.0 [facility] Comment on above: Performed By: #### C BC #### [facility] [address] [place] [address] Dr. Naheed Hernandes IG # 0.01 10e3/ul Normal 0.00-0.03 [facility] Comment on above: Performed By: #### C BC #### [facility] [address] [place] [address] Dr. Naheed Hernandes IG % 0.1 % Normal 0.0-0.5 [facility] Comment on above: Performed By: #### C BC #### [facility] [address] [place] [address] Dr. Naheed Hernandes LYMPH # 1.6 103/ul Normal 1.2-3.8 [facility] Comment on above: Performed By: #### C BC #### [facility] [address] [place] [address] Dr. Naheed Hernandes Lymphocytes/100 WBC (Bld) 23.1 % Normal 20.5-60.0 [facility] Comment on above: Performed By: #### C BC #### [facility] [address] [place] [address] Dr. Naheed Hernandes MANUAL DIFF REQ NO Normal [facility] Comment on above: Performed By: #### C BC #### [facility] [address] [place] [address] Dr. Naheed Hernandes MCH (RBC) [Entitic mass] 30.4 pg Normal 26.7-34.0 [facility] Comment on above: Performed By: #### C BC #### [facility] [address] [place] [address] Dr. Naheed Hernandes MCHC (RBC) [Mass/Vol] 32.5 g/dL Normal 29.9-35.2 [facility] Comment on above: Performed By: #### C BC #### [facility] [address] [place] [address] Dr. Naheed Hernandes MCV (RBC) [Entitic vol] 93.6 fL Normal 81.0-99.0 [facility] Comment on above: Performed By: #### C BC #### [facility] [address] [place] [address] Dr. Naheed Hernandes MONO # 0.7 103/ul Normal 0.3-0.8 [facility] Comment on above: Performed By: #### C BC #### [facility] [address] [place] [address] Dr. Naheed Hernandes Monocytes/100 WBC (Bld) 10.2 % Normal 1.7-12.0 [facility] Comment on above: Performed By: #### C BC #### [facility] [address] [place] [address] Dr. Naheed Hernandes NEUT # 4.4 103/ul Normal 1.4-6.5 [facility] Comment on above: Performed By: #### C BC #### [facility] [address] [place] [address] Dr. Naheed Hernandes Neutrophils/100 WBC (Bld) 64.1 % Normal 43.0-75.0 [facility] Comment on above: Performed By: #### C BC #### [facility] [address] [place] [address] Dr. Naheed Hernandes Platelet mean volume (Bld) [Entitic vol] 9.2 fL Critically low 9.5-13.5 [facility] Comment on above: Performed By: #### C BC #### [facility] [address] [place] [address] Dr. Naheed Hernandes PLT 243 103/ul Normal 150-450 [facility] Comment on above: Performed By: #### C BC #### [facility] [address] [place] [address] Dr. Naheed Hernandes RBC 4.67 106/ul Normal 4.20-5.40 [facility] Comment on above: Performed By: #### C BC #### [facility] [address] [place] [address] Dr. Naheed Hernandes WBC 6.9 103/ul Normal 4.0-11.0 [facility] Comment on above: Performed By: #### C BC #### [facility] [address] [place] [address] Dr. Naheed Hernandes LIPASEon 11-20-2021 Lipase [Catalytic activity/Vol] 138.0 U/L Normal 23.0-300.0 [facility] Comment on above: Performed By: #### L IPA, CMP #### [facility] [address] [address] [address] Naheed Hernandes PROF 14(COMP METB)on 022 Albumin [Mass/Vol] 3.9 g/dL Normal 3.5-5.0 [facility] Comment on above: Performed By: #### L IPA, CMP #### [facility] [address] [place] [address] Dr. Naheed Hernandes Albumin/Globulin [Mass ratio] 1.1 {ratio} Normal [facility] Comment on above: Performed By: #### L IPA, CMP #### [facility] [address] [address] [address] Naheed Hernandes ALP [Catalytic activity/Vol] 88 U/L Normal 38-126 [facility] Comment on above: Performed By: #### L IPA, CMP #### [facility] [address] [place] [address] Dr. Naheed Hernandes ALT [Catalytic activity/Vol] 13 U/L Normal 9-52 [facility] Comment on above: Performed By: #### L IPA, CMP #### [facility] [address] [place] [address] Dr. Naheed Hernandes Anion gap [Moles/Vol] 9.1 mmol/L Normal [facility] Comment on above: Performed By: #### L IPA, CMP #### [facility] [address] [place] [address] Dr. Naheed Hernandes AST [Catalytic activity/Vol] 20 U/L Normal 14-36 [facility] Comment on above: Performed By: #### L IPA, CMP #### [facility] [address] [place] [address] Dr. Naheed Hernandes Bilirubin [Mass/Vol] 1.0 mg/dL Normal 0.2-1.3 [facility] Comment on above: Performed By: #### L IPA, CMP #### [facility] [address] [place] [address] Dr. Naheed Hernandes Calcium [Mass/Vol] 8.7 mg/dL Normal 8.4-10.2 [facility] Comment on above: Performed By: #### L IPA, CMP #### [facility] [address] [address] [address] Naheed Hernandes Chloride [Moles/Vol] 103 mmol/L Normal 98-107 [facility] Comment on above: Performed By: #### L IPA, CMP #### [facility] [address] [address] [address] Naheed Hernandes CO2 [Moles/Vol] 32.6 mmol/L Critically high 22.0-30.0 [facility] Comment on above: Performed By: #### L IPA, CMP #### [facility] [address] [address] [address] Naheed Hernandes Creatinine [Mass/Vol] 1.34 mg/dL Critically high 0.52-1.04 [facility] Comment on above: Performed By: #### L IPA, CMP #### [facility] [address] [place] [address] Dr. Naheed Hernandes EGFR-AF FINNISH 46 mL/min/1.73m2 Critically low >=60 [facility] Comment on above: Performed By: #### L IPA, CMP #### [facility] [address] [address] [address] Naheed Hernandes EGFR-NON AF FINNISH 38 mL/min/1.73m2 Critically low >=60 [facility] Comment on above: Performed By: #### L IPA, CMP #### [facility] [address] [address] [address] Naheed Hernandes Globulin (S) [Mass/Vol] 3.7 g/dL Normal [facility] Comment on above: Performed By: #### L IPA, CMP #### [facility] [address] [address] [address] Naheed Hernandes Glucose [Mass/Vol] 109 mg/dL Critically high 74-106 [facility] Comment on above: Performed By: #### L IPA, CMP #### [facility] [address] [address] [address] Naheed Hernandes Potassium [Moles/Vol] 3.7 mmol/L Normal 3.4-5.0 [facility] Comment on above: Performed By: #### L IPA, CMP #### [facility] [address] [address] [address] Naheed Hernandes Protein [Mass/Vol] 7.6 g/dL Normal 6.1-8.2 [facility] Comment on above: Performed By: #### L IPA, CMP #### [facility] [address] [address] [address] Naheed Hernandes Sodium [Moles/Vol] 141 mmol/L Normal 137-145 [facility] Comment on above: Performed By: #### L IPA, CMP #### [facility] [address] [address] [address] Naheed Hernandes Urea nitrogen [Mass/Vol] 20.0 mg/dL Critically high 7.0-17.0 [facility] [facility] Comment on above: Performed By: #### L IPA, CMP #### [facility] [address] [address] [address] Naheed Hernandes Urea nitrogen/Creatinin e [Mass ratio] 14.9 mg/mg Normal [facility] Comment on above: Performed By: #### L IPA, CMP #### [facility] [address] [address] [address] Naheed Hernandes COVID-19 [facility] [place] 06-05-2021 SARS-CoV-2 (COVID-19) RNA ANUP+probe Ql (Unsp spec) Negative Normal Negative [facility] Comment on above: Order Comment: Healt hcare Worker?: N Result Comment: Testing for SARS-CoV-2 by RT-PCR This test was developed and its performance characteristics determined by [employer] and validated at the [facility]. This test has not been FDA cleared [...] is terminated or revoked sooner. PERFORMED BY: [place] [address] PATHOLOGIST SURG PHYSICIAN ASST PETAR ARTEAGA M.D. Performed By: #### C OVID 19 [facility] [place] #### [place] [id number] [facility] Vital Signs Date Time Vital Sign Value Performing Clinician Faci lity 10-21-2023 10:26-0500 Body mass index (BMI) [Ratio] 18.78 kg/m2 Artis Rodriguez MD Work Phone: [facility] Healthcare 10-21-2023 10:26-0500 Body weight 48.08 kg Artis Rodriguez MD Work Phone: [facility] Healthcare Encounters Encounter Date Encounter Type Care Provider Facility Start: 10-31-2023 Telephone encounter December Morismadalyn ARGUETA [facility] Comment on above: Medication Question Start: 10-31-2023 End: 10-31-2023 ambulatory ARTIS RODRIGUEZ Not Available Start: 10-21-2023 End: 10-31-2023 Office outpatient visit 15 minutes Artis Rodriguez MD Work Phone: [facility] Comment on above: 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); DDD (degenerative disc disease), lumbar; BMI less than 19,adult; Delusions (CMS/HCC); Moderate protein-calorie malnutrition (CMS/HCC) Start: 08-22-2023 End: 08-22-2023 ambulatory ARTIS RODRIGUEZ Not Available Start: 01-21-2023 ambulatory JUDY Padgett FREYA Facility: [facility] [place] Start: 11-26-2022 ambulatory JUDY L FREYA Facility: [facility] [place] Start: 09-29-2022 End: 09-30-[address] ALMA ROSA OBREGON Facility: Start: 11-20-2021 End: 11-21-[address] ARTIS RODRIGUEZ Facility:[facility] Plan of Treatment Date Care Activity Detail Author Start: 08-22-2024 Medicare Annual Well ness (AWV) Medicare Annual Wellness (AWV) [facility] Start: 06-20-2018 Pneumococcal Vaccine : 65+ Years (2 - PCV) Pneumococcal Vaccine: 65+ Years (2 - PCV) [facility] Immunizations Immunization Date Immunization Notes Care Provider Fa cility 07-16-2023 SARS-COV-2 (COVID-19 ) vaccine, mRNA, spike protein, LNP, PF, 50 mcg/0.5 mL [facility] 07-02-2023 Influenza, Seasonal, Quadrivalent, Adjuvanted Marlyn [facility] 07-09-2022 Influenza, High-dose Seasonal, Quadrivalent, Preservative Free [facility] 07-18-2020 Influenza, High-dose Seasonal, Quadrivalent, Preservative Free [facility] 07-13-2019 influenza, high dose seasonal, preservative-free [facility] 06-20-2017 influenza, injectabl e, quadrivalent, preservative free [facility] 06-20-2017 pneumococcal polysac charide vaccine, 23 valent [facility] 08-03-2016 influenza, injectabl e, quadrivalent, preservative free [facility] Payers Date Payer Category Payer Medicare [id number] 2019 Unknown [facility] [id number] 2019-Present [address] [place] [address] [id number] 2007 Medicare MEDICARE MEDICAR E PART B [id number] 2007-[place] [place] [address] Medicare [id number] 1959 Medicare [id number] 1959 Unknown [id number] 1942 Unknown [id number] 1942 Unknown [id number] 1942 Unknown [id number] 1942 Unknown [id number] 1942 Unknown [id number] 1942 Unknown [id number] 9 Social History Date Type Detail Facility Start: 05-03-2023 Tobacco smoking stat [facility] Ex-smoker [facility] History of [...] the abilify. Please complete and resend rx. [facility] History of Present illness Narrative [...] section and content) DATE CREATED AUTHOR 10/13/[address] [facility] DATE CREATED AUTHOR AUTHOR'S ORGANIZ ATION 10/02/2022 [facility] DATE CREATED AUTHOR AUTHOR'S ORGANIZ ATION 11/27/2022 [facility] DATE CREATED AUTHOR AUTHOR'S ORGANIZ ATION 11/01/2023 [facility] EPIC Reason for Visit (unrecogniz ed section and content) Reason Onset Date Comments Medication Question 10/31/2023 Care Teams (unrecognized sec tion and content) [employer] Relationship Specialty Start Date End Date Artis Rodriguez MD [address] [place] [address] PCP - General Family Medicine 05/03/23 [employer] Relationship Specialty Start Date End Date Artis Rodriguez MD [address] [place] [address] PCP - General Family Medicine 05/03/23 FOR [...] BE BASED ON THE PRIMARY CLINICAL RECORDS. [facility] [employer] [facility]. provides no warranty or guarantee of the accuracy or completeness of information in this document.
== END 2023-11-21 10:11 | disposition home or self-care (01) ==
LOC: EC 10:10
PROVIDERS: PCP Family Medicine; Visit Provider Orthopaedic Surgery
DX: S42.291D Other displaced fracture of upper end of right humerus, subsequent encounter for fracture with routine healing (principal); S72.001D Fracture of unspecified part of neck of right femur, subsequent encounter for closed fracture with routine healing
CPT/HCPCS: 73030; 73502

== ENCOUNTER 2023-12-19 09:04 | Outpatient (OUT) | payer MEDICARE, OTHER, SELFPAY ==
--- NOTE | 2023-12-19 | XR_ITS ---
The [address] [address] Patient Name: SAM TOBAR MRN: [id number] date: 1940 Sex: F Assigned Patient Location: Current Patient Location: Accession/Order Number: [id number] Exam Date: 12/19/2023 09:30 Report Date: 12/20/2023 06:47 At the request of: CRYS BEAN Procedure: XR shoulder RT min 2V PROCEDURE: XR shoulder RT min 2V HISTORY: RIGHT SHOULDER PAIN COMPARISON: XR shoulder right 11/21/2023 FINDINGS: BONES:No fracture of surgical neck of right humerus with impaction into the humeral head and subsequent callus formation and sclerosis. Humeral head sits slightly low within the glenoid. Narrowing and degenerative osteophytes of the acromioclavicular joint. SOFT TISSUES:No visible soft tissue swelling. EFFUSION:None visible. OTHER: Negative. XR/XR shoulder RT min 2V IMPRESSION: 1. Stable complex fracture of proximal right humerus with ongoing changes of bone healing. Electronically authenticated by: CRYS WHEELER Date: 12/20/2023 06:47
--- NOTE | 2023-12-19 | XR_ITS ---
[place] [id number] Patient Name: SAM TOBAR MRN: [id number] date: 1940 Sex: F Assigned Patient Location: Current Patient Location: Accession/Order Number: [id number] Exam Date: 12/19/2023 09:30 Report Date: 12/20/2023 06:37 At the request of: CRYS BEAN Procedure: XR hip RT 2V w/ pelvis PROCEDURE: XR hip RT 2V w/ pelvis HISTORY: RIGHT HIP PAIN COMPARISON: XR hip right 11/21/2023 FINDINGS: BONES:Surgical repair of right femoral neck fracture via a compression screw. No appreciable hardware fracture or loosening. Mild degenerative changes left hip joint. SOFT TISSUES:No visible soft tissue swelling. EFFUSION:None visible. OTHER: Negative. XR/XR hip RT 2V w/ pelvis IMPRESSION: 1. Stable surgical repair of right femoral neck fracture. Electronically authenticated by: CRYS WHEELER Date: 12/20/2023 06:37
--- OUTSIDE RECORDS SUMMARY | 2023-12-19 09:12 | XMS_ITS | CCD ---
Author Organization [facility] Care Team Providers Care Metal Fitter Name Role Phone JENNIFER, DR HAYWOOD Admitting [...] Unavailable Artis Rodriguez MD Primary Care Provider ARTIS RODRIGUEZ Attending Unavailable ARTIS RODRIGUEZ Attending Unavailable Allergies Allergy Classification Reported Allergen(s) Allergy Type Date of Onset Reaction(s) Facility (1 source) donepezil Drug Allergy [facility] (1 source) Penicillins Drug allergy (disorder) 3 [facility] (1 source) Sulfonamides (Antibiotic) Drug allergy (disorder) 3 [facility] (3 sources) Clarithromycin Allergy to substance 3 [facility] (3 sources) Penicillin G Drug Allergy 3 [facility] (3 sources) Sulfamethoxazole / Trimethoprim Drug Allergy 3 [facility] Medications Current Medications Medication Drug Class(es) Dates [...] tablet (3 sources) Serotonin Reuptake Inhibitor Start: End: 024 take [...] 09-29-2022 BASO # 0.0 103/ul Normal 0.0-0.1 [facility] Comment on above: Performed By: #### C BC #### [facility] [address] [place] [address] Dr. Naheed Hernandes Basophils/100 WBC (Bld) 0.7 % Normal 0.2-2.0 [facility] Comment on above: Performed By: #### C BC #### [facility] [address] [address] [address] Naheed Hernandes EO # 0.1 103/ul Normal 0.0-0.7 [facility] Comment on above: Performed By: #### C BC #### [facility] [address] [place] [address] Dr. Naheed Hernandes Eosinophils/100 WBC (Bld) 2.2 % Normal 0.9-7.0 [facility] Comment on above: Performed By: #### C BC #### [facility] [address] [place] [address] Dr. Naheed Hernandes Erythrocyte distribution width (RBC) [Ratio] 13.2 % Normal 11.0-15.0 [facility] Comment on above: Performed By: #### C BC #### [facility] [address] [place] [address] Dr. Naheed Hernandes Hematocrit (Bld) [Volume fraction] 43.2 % Normal 36.0-48.0 [facility] Comment on above: Performed By: #### C BC #### [facility] [address] [address] [address] Naheed Hernandes Hemoglobin (Bld) [Mass/Vol] 14.0 g/dL Normal 12.0-16.0 [facility] Comment on above: Performed By: #### C BC #### [facility] [address] [place] [address] Dr. Naheed Hernandes IG # 0.01 10e3/ul Normal 0.00-0.03 [facility] Comment on above: Performed By: #### C BC #### [facility] [address] [place] [address] Dr. Naheed Hernandes IG % 0.2 % Normal 0.0-0.5 [facility] Comment on above: Performed By: #### C BC #### [facility] [address] [place] [address] Dr. Naheed Hernandes LYMPH # 1.0 103/ul Critically low 1.2-3.8 [facility] Comment on above: Performed By: #### C BC #### [facility] [address] [place] [address] Dr. Naheed Hernandes Lymphocytes/100 WBC (Bld) 17.4 % Critically low 20.5-60.0 [facility] Comment on above: Performed By: #### C BC #### [facility] [address] [place] [address] Dr. Naheed Hernandes MANUAL DIFF REQ NO Normal [facility] Comment on above: Performed By: #### C BC #### [facility] [address] [place] [address] Dr. Naheed Hernandes MCH (RBC) [Entitic mass] 30.0 pg Normal 26.7-34.0 [facility] Comment on above: Performed By: #### C BC #### [facility] [address] [place] [address] Dr. Naheed Hernandes MCHC (RBC) [Mass/Vol] 32.4 g/dL Normal 29.9-35.2 [facility] Comment on above: Performed By: #### C BC #### [facility] [address] [address] [address] Naheed Hernandes MCV (RBC) [Entitic vol] 92.7 fL Normal 81.0-99.0 [facility] Comment on above: Performed By: #### C BC #### [facility] [address] [place] [address] Dr. Naheed Hernandes MONO # 0.5 103/ul Normal 0.3-0.8 [facility] Comment on above: Performed By: #### C BC #### [facility] [address] [place] [address] Dr. Naheed Hernandes Monocytes/100 WBC (Bld) 8.5 % Normal 1.7-12.0 [facility] Comment on above: Performed By: #### C BC #### [facility] [address] [place] [address] Dr. Naheed Hernandes NEUT # 4.2 103/ul Normal 1.4-6.5 [facility] Comment on above: Performed By: #### C BC #### [facility] [address] [place] [address] Dr. Naheed Hernandes Neutrophils/100 WBC (Bld) 71.0 % Normal 43.0-75.0 [facility] Comment on above: Performed By: #### C BC #### [facility] [address] [place] [address] Dr. Naheed Hernandes Platelet mean volume (Bld) [Entitic vol] 9.3 fL Critically low 9.5-13.5 [facility] Comment on above: Performed By: #### C BC #### [facility] [address] [place] [address] Dr. Naheed Hernandes PLT 242 103/ul Normal 150-450 [facility] Comment on above: Performed By: #### C BC #### [facility] [address] [place] [address] Dr. Naheed Hernandes RBC 4.66 106/ul Normal 4.20-5.40 [facility] Comment on above: Performed By: #### C BC #### [facility] [address] [place] [address] Dr. Naheed Hernandes WBC 5.9 103/ul Normal 4.0-11.0 [facility] Comment on above: Performed By: #### C BC #### [facility] [address] [place] [address] Dr. Naheed Hernandes FREE T3on 09-29-2022 FREE T3 2.15 pg/mlL Critically low 2.18-3.98 [facility] Comment on above: Performed By: #### L IPID, TSH, FT3, CMP #### [facility] [address] [place] [address] Dr. Naheed Hernandes FREE T4on 09-29-2022 Free T4 [Mass/Vol] 1.28 ng/dL Normal 0.76-1.[address] [facility] Comment on above: Performed By: #### F T4, VITAD #### [facility] [address] [place] [address] Dr. Naheed Hernandes LIPID PROFILEon 09-29-2022 CHOL-HDL RATIO NORM SEE BELOW Normal [facility] Comment on above: Result Comment: 3.3 - 4.4 LOW RISK 4.4 - 7.1 AVERAGE RISK 7.1 - 11.0 MODERATE RISK >11.0 HIGH RISK Performed By: #### L IPID, TSH, FT3, CMP #### [facility] [address] [place] [address] Dr. Naheed Hernandes Cholesterol [Mass/Vol] 186 mg/dL Normal <=200 [facility] Comment on above: Performed By: #### L IPID, TSH, FT3, CMP #### [facility] [address] [place] [address] Dr. Naheed Hernandes Cholesterol in HDL [Mass/Vol] 70 mg/dL Critically high 40-60 [facility] Comment on above: Performed By: #### L IPID, TSH, FT3, CMP #### [facility] [address] [place] [address] Dr. Naheed Hernandes Cholesterol in LDL [Mass/Vol] 98.8 mg/dL Normal [facility] Comment on above: Performed By: #### L IPID, TSH, FT3, CMP #### [facility] [address] [address] [address] Nahede Hernandes Cholesterol.total/ Cholesterol in HDL [Mass ratio] 2.7 {ratio} Normal [facility] Comment on above: Performed By: #### L IPID, TSH, FT3, CMP #### [facility] [address] [address] [address] Naheed Hernandes HDL NORMAL > or = 60 mg/dl - LO W CARDIOVASCULAR RISK <40 mg/dl - HIGH CARDIOVASCULAR RISK Normal [facility] Comment on above: Performed By: #### L IPID, TSH, FT3, CMP #### [facility] [address] [address] [address] Naheed Hernandes LDL CALC NORMAL SEE BELOW Normal [facility] Comment on above: Result Comment: <100 mg/dl OPTIMAL 100 - 129 mg/dl NEAR OR ABOVE OPTIMAL 130 - 159 mg/dl BORDERLINE HIGH 160 - 189 mg/dl HIGH >190 mg/dl VERY HIGH Performed By: #### L IPID, TSH, FT3, CMP #### [facility] [address] [address] [address] Naheed Hernandes Triglyceride [Mass/Vol] 86 mg/dL Normal <=150 [facility] Comment on above: Performed By: #### L IPID, TSH, FT3, CMP #### [facility] [address] [address] [address] Naheed Hernandes VLDL CALC 17.2 mg/dL Normal [facility] Comment on above: Performed By: #### L IPID, TSH, FT3, CMP #### [facility] [address] [address] [address] Naheed Hernandes PROF 14(COMP METB)on 023 Albumin [Mass/Vol] 3.7 g/dL Normal 3.4-5.[address] [facility] Comment on above: Performed By: #### L IPID, TSH, FT3, CMP #### [facility] [address] [place] [address] Dr. Naheed Hernandes Albumin/Globulin [Mass ratio] 1.1 {ratio} Normal [facility] Comment on above: Performed By: #### L IPID, TSH, FT3, CMP #### [facility] [address] [place] [address] Dr. Naheed Hernandes ALP [Catalytic activity/Vol] 90 U/L Normal 46-116 [facility] Comment on above: Performed By: #### L IPID, TSH, FT3, CMP #### [facility] [address] [place] [address] Dr. Naheed Hernandes ALT [Catalytic activity/Vol] 14 U/L Normal 14-59 [facility] Comment on above: Performed By: #### L IPID, TSH, FT3, CMP #### [facility] [address] [place] [address] Dr. Naheed Hernandes Anion gap [Moles/Vol] 7.6 mmol/L Normal [facility] Comment on above: Performed By: #### L IPID, TSH, FT3, CMP #### [facility] [address] [place] [address] Dr. Naheed Hernandes AST [Catalytic activity/Vol] 25 U/L Normal 15-37 [facility] Comment on above: Performed By: #### L IPID, TSH, FT3, CMP #### [facility] [address] [place] [address] Dr. Naheed Hernandes Bilirubin [Mass/Vol] 1.4 mg/dL Critically high 0.2-1.0 [facility] Comment on above: Performed By: #### L IPID, TSH, FT3, CMP #### [facility] [address] [place] [address] Dr. Naheed Hernandes Calcium [Mass/Vol] 9.0 mg/dL Normal 8.5-10.[address] [facility] Comment on above: Performed By: #### L IPID, TSH, FT3, CMP #### [facility] [address] [place] [address] Dr. Naheed Hernandes Chloride [Moles/Vol] 103 mmol/L Normal 98-107 [facility] Comment on above: Performed By: #### L IPID, TSH, FT3, CMP #### [facility] [address] [address] [address] Naheed Hernandes CO2 [Moles/Vol] 32.2 mmol/L Critically high 21.0-32.0 [facility] Comment on above: Performed By: #### L IPID, TSH, FT3, CMP #### [facility] [address] [address] [address] Naheed Hernandes Creatinine [Mass/Vol] 1.05 mg/dL Critically high 0.55-1.02 [facility] Comment on above: Performed By: #### L IPID, TSH, FT3, CMP #### [facility] [address] [place] [address] Dr. Naheed Hernandes EGFR-AF GERMAN >60 Normal >=60 [facility] Comment on above: Performed By: #### L IPID, TSH, FT3, CMP #### [facility] [address] [place] [address] Dr. Naheed Hernandes EGFR-NON AF GERMAN 50 mL/min/1.73m2 Critically low >=60 [facility] Comment on above: Performed By: #### L IPID, TSH, FT3, CMP #### [facility] [address] [place] [address] Dr. Naheed Hernandes Globulin (S) [Mass/Vol] 3.4 g/dL Normal [facility] Comment on above: Performed By: #### L IPID, TSH, FT3, CMP #### [facility] [address] [place] [address] Dr. Naheed Hernandes Glucose [Mass/Vol] 85 mg/dL Normal 74-[address] [facility] Comment on above: Performed By: #### L IPID, TSH, FT3, CMP #### [facility] [address] [address] [address] Naheed Hernandes Potassium [Moles/Vol] 3.8 mmol/L Normal 3.5-5.1 [facility] Comment on above: Performed By: #### L IPID, TSH, FT3, CMP #### [facility] [address] [place] [address] Dr. Naheed Hernandes Protein [Mass/Vol] 7.1 g/dL Normal 6.4-8.[address] [facility] Comment on above: Performed By: #### L IPID, TSH, FT3, CMP #### [facility] [address] [place] [address] Dr. Naheed Hernandes Sodium [Moles/Vol] 139 mmol/L Normal 136-145 [facility] Comment on above: Performed By: #### L IPID, TSH, FT3, CMP #### [facility] [address] [place] [address] Dr. Naheed Hernandes Urea nitrogen [Mass/Vol] 16.0 mg/dL Normal 7.0-18.0 [facility] Comment on above: Performed By: #### L IPID, TSH, FT3, CMP #### [facility] [address] [place] [address] Dr. Naheed Hernandes Urea nitrogen/Creatinin e [Mass ratio] 15.2 mg/mg Normal [facility] Comment on above: Performed By: #### L IPID, TSH, FT3, CMP #### [facility] [address] [place] [address] Dr. Naheed Hernandes TSHon 09-29-2022 TSH 1.283 uIU/mL Normal 0.358-3.740 [facility] Comment on above: Performed By: #### L IPID, TSH, FT3, CMP #### [facility] [address] [place] [address] Dr. Naheed Hernandes VITAMIN D 25 OHon 09-29-2022 VIT D 25-OH 78.0 ng/mL Normal [facility] Comment on above: Performed By: #### F T4, VITAD #### [facility] [address] [place] [address] Dr. Naheed Hernandes VIT D RANGES SEE BELOW Normal [facility] Comment on above: Result Comment: <20 ng/mL Vit D deficient 20 - <30 ng/mL Vit D insufficient 30 - 100 ng/mL Vit D sufficient >100 ng/mL Potential Toxicity Performed By: #### F T4, VITAD #### [facility] [address] [place] [address] Dr. Naheed Hernandes CBC AUTO DIFFon 11-20-2021 BASO # 0.0 103/ul Normal 0.0-0.1 [facility] Comment on above: Performed By: #### C BC #### [facility] [address] [address] [address] Naheed Hernandes Basophils/100 WBC (Bld) 0.6 % Normal 0.2-2.0 [facility] Comment on above: Performed By: #### C BC #### [facility] [address] [address] [address] Naheed Hernandes EO # 0.1 103/ul Normal 0.0-0.7 [facility] Comment on above: Performed By: #### C BC #### [facility] [address] [address] [address] Naheed Hernandes Eosinophils/100 WBC (Bld) 1.9 % Normal 0.9-7.0 [facility] Comment on above: Performed By: #### C BC #### [facility] [address] [address] [address] Naheed Hernandes Erythrocyte distribution width (RBC) [Ratio] 13.3 % Normal 11.0-15.0 [facility] Comment on above: Performed By: #### C BC #### [facility] [address] [address] [address] Naheed Hernandes Hematocrit (Bld) [Volume fraction] 43.7 % Normal 36.0-48.0 [facility] Comment on above: Performed By: #### C BC #### [facility] [address] [address] [address] Naheed Hernandes Hemoglobin (Bld) [Mass/Vol] 14.2 g/dL Normal 12.0-16.0 [facility] Comment on above: Performed By: #### C BC #### [facility] [address] [address] [address] Naheed Hernandes IG # 0.01 10e3/ul Normal 0.00-0.03 [facility] Comment on above: Performed By: #### C BC #### [facility] [address] [place] [address] Dr. Naheed Hernandes IG % 0.1 % Normal 0.0-0.5 [facility] Comment on above: Performed By: #### C BC #### [facility] [address] [place] [address] Dr. Naheed Hernandes LYMPH # 1.6 103/ul Normal 1.2-3.8 [facility] Comment on above: Performed By: #### C BC #### [facility] [address] [place] [address] Dr. Naheed Hernandes Lymphocytes/100 WBC (Bld) 23.1 % Normal 20.5-60.0 [facility] Comment on above: Performed By: #### C BC #### [facility] [address] [place] [address] Dr. Naheed Hernandes MANUAL DIFF REQ NO Normal [facility] Comment on above: Performed By: #### C BC #### [facility] [address] [place] [address] Dr. Naheed Hernandes MCH (RBC) [Entitic mass] 30.4 pg Normal 26.7-34.0 [facility] Comment on above: Performed By: #### C BC #### [facility] [address] [place] [address] Dr. Naheed Hernandes MCHC (RBC) [Mass/Vol] 32.5 g/dL Normal 29.9-35.2 [facility] Comment on above: Performed By: #### C BC #### [facility] [address] [place] [address] Dr. Naheed Hernandes MCV (RBC) [Entitic vol] 93.6 fL Normal 81.0-99.0 [facility] Comment on above: Performed By: #### C BC #### [facility] [address] [place] [address] Dr. Naheed Hernandes MONO # 0.7 103/ul Normal 0.3-0.8 [facility] Comment on above: Performed By: #### C BC #### [facility] [address] [place] [address] Dr. Naheed Hernandes Monocytes/100 WBC (Bld) 10.2 % Normal 1.7-12.0 [facility] Comment on above: Performed By: #### C BC #### [facility] [address] [place] [address] Dr. Naheed Hernandes NEUT # 4.4 103/ul Normal 1.4-6.5 [facility] Comment on above: Performed By: #### C BC #### [facility] [address] [place] [address] Dr. Naheed Hernandes Neutrophils/100 WBC (Bld) 64.1 % Normal 43.0-75.0 [facility] Comment on above: Performed By: #### C BC #### [facility] [address] [place] [address] Dr. Naheed Hernandes Platelet mean volume (Bld) [Entitic vol] 9.2 fL Critically low 9.5-13.5 [facility] Comment on above: Performed By: #### C BC #### [facility] [address] [place] [address] Dr. Naheed Hernandes PLT 243 103/ul Normal 150-450 [facility] Comment on above: Performed By: #### C BC #### [facility] [address] [place] [address] Dr. Naehed Hernandes RBC 4.67 106/ul Normal 4.20-5.40 [facility] Comment on above: Performed By: #### C BC #### [facility] [address] [place] [address] Dr. Naheed Hernandes WBC 6.9 103/ul Normal 4.0-11.0 [facility] Comment on above: Performed By: #### C BC #### [facility] [address] [place] [address] Dr. Naheed Hernandes LIPASEon 11-20-2021 Lipase [Catalytic activity/Vol] 138.0 U/L Normal 23.0-300.0 [facility] Comment on above: Performed By: #### L IPA, CMP #### [facility] [address] [place] [address] Dr. Naheed Hernandes PROF 14(COMP METB)on 022 Albumin [Mass/Vol] 3.9 g/dL Normal 3.5-5.[address] [facility] Comment on above: Performed By: #### L IPA, CMP #### [facility] [address] [place] [address] Dr. Naheed Hernandes Albumin/Globulin [Mass ratio] 1.1 {ratio} Normal [facility] Comment on above: Performed By: #### L IPA, CMP #### [facility] [address] [place] [address] Dr. Naheed Hernandes ALP [Catalytic activity/Vol] 88 U/L Normal 38-126 [facility] Comment on above: Performed By: #### L IPA, CMP #### [facility] [address] [place] [address] Dr. Naheed Hernandes ALT [Catalytic activity/Vol] 13 U/L Normal 9-52 [facility] Comment on above: Performed By: #### L IPA, CMP #### [facility] [address] [place] [address] Dr. Naheed Hernandes Anion gap [Moles/Vol] 9.1 mmol/L Normal [facility] Comment on above: Performed By: #### L IPA, CMP #### [facility] [address] [place] [address] Dr. Naheed Hernandes AST [Catalytic activity/Vol] 20 U/L Normal 14-36 [facility] Comment on above: Performed By: #### L IPA, CMP #### [facility] [address] [address] [address] Naheed Hernandes Bilirubin [Mass/Vol] 1.0 mg/dL Normal 0.2-1.3 [facility] Comment on above: Performed By: #### L IPA, CMP #### [facility] [address] [place] [address] Dr. Naheed Hernandes Calcium [Mass/Vol] 8.7 mg/dL Normal 8.4-10.2 [facility] Comment on above: Performed By: #### L IPA, CMP #### [facility] [address] [place] [address] Dr. Naheed Hernandes Chloride [Moles/Vol] 103 mmol/L Normal 98-107 [facility] Comment on above: Performed By: #### L IPA, CMP #### [facility] [address] [address] [address] Naheed Hernandes CO2 [Moles/Vol] 32.6 mmol/L Critically high 22.0-30.0 [facility] Comment on above: Performed By: #### L IPA, CMP #### [facility] [address] [place] [address] Dr. Naheed Hernandes Creatinine [Mass/Vol] 1.34 mg/dL Critically high 0.52-1.04 [facility] Comment on above: Performed By: #### L IPA, CMP #### [facility] [address] [place] [address] Dr. Naheed Hernandes EGFR-AF GERMAN 46 mL/min/1.73m2 Critically low >=60 [facility] Comment on above: Performed By: #### L IPA, CMP #### [facility] [address] [place] [address] Dr. Naheed Hernandes EGFR-NON AF GERMAN 38 mL/min/1.73m2 Critically low >=60 [facility] Comment on above: Performed By: #### L IPA, CMP #### [facility] [address] [place] [address] Dr. Naheed Hernandes Globulin (S) [Mass/Vol] 3.7 g/dL Normal [facility] Comment on above: Performed By: #### L IPA, CMP #### [facility] [address] [place] [address] Dr. Naheed Hernandes Glucose [Mass/Vol] 109 mg/dL Critically high 74-[address] [facility] Comment on above: Performed By: #### L IPA, CMP #### [facility] [address] [place] [address] Dr. Naheed Hernandes Potassium [Moles/Vol] 3.7 mmol/L Normal 3.4-5.0 [facility] Comment on above: Performed By: #### L IPA, CMP #### [facility] [address] [address] [address] Naheed Hernandes Protein [Mass/Vol] 7.6 g/dL Normal 6.1-8.2 [facility] Comment on above: Performed By: #### L IPA, CMP #### [facility] [address] [address] [address] Naheed Hernandes Sodium [Moles/Vol] 141 mmol/L Normal 137-145 [facility] Comment on above: Performed By: #### L IPA, CMP #### [facility] [address] [address] [address] Naheed Hernandes Urea nitrogen [Mass/Vol] 20.0 mg/dL Critically high 7.0-17.0 [facility] Comment on above: Performed By: #### L IPA, CMP #### [facility] [address] [address] [address] Naheed Hernandes Urea nitrogen/Creatinin e [Mass ratio] 14.9 mg/mg Normal [facility] Comment on above: Performed By: #### L IPA, CMP #### [facility] [address] [address] [address] Naheed Hernandes COVID-19 [facility] [place] 06-05-2021 SARS-CoV-2 (COVID-19) RNA ANUP+probe Ql (Unsp spec) Negative Normal Negative [facility] Comment on above: Order Comment: Healt hcare Worker?: N Result Comment: Testing for SARS-CoV-2 by RT-PCR This test was developed and its performance characteristics determined by [employer] and validated at the [facility]. This test has not been FDA [...] is terminated or revoked sooner. PERFORMED BY: [place] [address] PATHOLOGIST NEEDLEWORKER PETAR ARTEAGA M.D. Performed By: #### C OVID 19 [facility] #### [address] Vital Signs Date Time Vital Sign Value Performing Clinician Faci lity 10-21-2023 10:26-0500 Body mass index (BMI) [Ratio] 18.78 kg/m2 Artis Rodriguez MD Work Phone: [facility] Healthcare 10-21-2023 10:26-0500 Body weight 48.08 kg Artis Rodriguez MD Work Phone: [facility] Healthcare Encounters Encounter Date Encounter Type Care Provider Facility Start: 10-31-2023 Telephone encounter December Maryuri ARGUETA [facility] Comment on above: Medication Question Start: 10-31-2023 End: 10-31-2023 ambulatory ARTIS RODRIGUEZ Not Available Start: 10-21-2023 End: 10-31-2023 Office outpatient visit 15 minutes Artis Rodriguez MD Work Phone: [facility] Comment on above: 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); DDD (degenerative disc disease), lumbar; BMI less than 19,adult; Delusions (CMS/HCC); Moderate protein-calorie malnutrition (CMS/HCC) Start: 08-22-2023 End: 08-22-2023 ambulatory ARTIS RODRIGUEZ Not Available Start: 01-21-2023 ambulatory JUDY Padgett FREYA Facility: [facility] [place] Start: 11-26-2022 ambulatory JUDY Padgett FREYA Facility: [facility] [place] Start: 09-29-2022 End: 09-30-[address] ALMA ROSA OBREGON Facility:[facility] Start: 11-20-2021 End: 11-21-[address] ARTIS RODRIGUEZ Facility:[facility] Plan of Treatment Date Care Activity Detail Author Start: 08-22-2024 Medicare Annual Well ness (AWV) Medicare Annual Wellness (AWV) [facility] Start: 06-20-2018 Pneumococcal Vaccine : 65+ Years (2 - PCV) Pneumococcal Vaccine: 65+ Years (2 - PCV) [facility] Immunizations Immunization Date Immunization Notes Care Provider Boy beckman 07-16-2023 SARS-COV-2 (COVID-19 ) vaccine, mRNA, spike protein, LNP, PF, 50 mcg/0.5 mL December [facility] 07-02-2023 Influenza, Seasonal, Quadrivalent, Adjuvanted [facility] 07-09-2022 Influenza, High-dose Seasonal, Quadrivalent, Preservative Free [facility] 07-18-2020 Influenza, High-dose Seasonal, Quadrivalent, Preservative Free [facility] 07-13-2019 influenza, high dose seasonal, preservative-free [facility] 06-20-2017 influenza, injectabl e, quadrivalent, preservative free [facility] 06-20-2017 pneumococcal polysac charide vaccine, 23 valent Marlyn [facility] 08-03-2016 influenza, injectabl e, quadrivalent, preservative free [facility] Payers Date Payer Category Payer Medicare [id number] 2019 Unknown [employer] [place] [place] [employer] [place] [id number] 2019-Present [address] [address] [id number] 2007 Medicare MEDICARE MEDICAR E PART B [id number] 2007-[place] [address] Medicare [id number] 1959 Medicare [id number] 1959 Unknown [id number] 1942 Unknown [id number] 1942 Unknown [id number] 1942 Unknown [id number] 1942 Unknown [id number] 1942 Unknown [id number] 1942 Unknown [id number] Social History Date Type Detail Facility Start: 05-03-2023 Tobacco smoking stat [facility] Ex-smoker [facility] History of [...] Please complete and resend rx. [facility] History of Present illness Narrative 10-21-2023 [...] and independent historian, Her daughter and TIMOTHY Bauer. Independent historian is here to make sure [...] section and content) DATE CREATED AUTHOR 10/13/2021 [facility] DATE CREATED AUTHOR AUTHOR'S ORGANIZ ATION 10/02/2022 [facility] DATE CREATED AUTHOR AUTHOR'S ORGANIZ ATION 11/27/2022 [facility] DATE CREATED AUTHOR AUTHOR'S ORGANIZ ATION 11/01/2023 [facility] EPIC Reason for Visit (unrecogniz ed section and content) Reason Onset Date Comments Medication Question 10/31/2023 Care Teams (unrecognized sec tion and content) Metal Fitter Relationship Specialty Start Date End Date Artis Rodriguez MD [address] [place] [address] PCP - General Family Medicine 05/03/23 Metal Fitter Relationship Specialty Start Date End Date Artis Rodriguez MD [address] [place] [address] PCP - General Family Medicine 05/03/23 FOR [...] BE BASED ON THE PRIMARY CLINICAL RECORDS. [facility]. provides no warranty or guarantee of the accuracy or completeness of information in this document.
== END 2023-12-19 09:05 | disposition home or self-care (01) ==
LOC: EC 09:04
PROVIDERS: PCP Family Medicine; Visit Provider Orthopaedic Surgery
DX: S42.291D Other displaced fracture of upper end of right humerus, subsequent encounter for fracture with routine healing (principal); S72.001D Fracture of unspecified part of neck of right femur, subsequent encounter for closed fracture with routine healing
CPT/HCPCS: 73030; 73502

== ENCOUNTER 2024-01-23 11:59 | Outpatient (OUT) | payer MEDICARE, OTHER, SELFPAY ==
--- NOTE | 2024-01-23 | XR_ITS ---
The [address] [address] Patient Name: SAM TOBAR MRN: [id number] date: 1940 Sex: F Assigned Patient Location: Current Patient Location: Accession/Order Number: [id number] Exam Date: 01/23/2024 12:00 Report Date: 01/23/2024 15:45 At the request of: CRYS BEAN Procedure: XR shoulder RT min 2V PROCEDURE: XR shoulder RT min 2V COMPARISON: 12/19/2023, 11/21/2023 HISTORY: RIGHT SHOULDER PAIN FINDINGS: BONES:Stable acute complex right humeral head and neck fracture with overriding of the diaphysis. Slight increase in bone formation with incomplete bony bridging. The glenohumeral and acromioclavicular joints are intact. High riding humeral head suggests chronic rotator cuff injury SOFT TISSUES:Negative. No visible soft tissue swelling. EFFUSION:None visible. OTHER: Negative. XR/XR shoulder RT min 2V IMPRESSION: Stable healing right humeral head and neck fracture with incomplete bony bridging Electronically authenticated by: REBECCA MOORE Date: 01/23/2024 15:45
--- NOTE | 2024-01-23 | XR_ITS ---
[address] [address] Patient Name: SAM TOBAR MRN: [id number] date: 1940 Sex: F Assigned Patient Location: Current Patient Location: Accession/Order Number: [id number] Exam Date: 01/23/2024 12:25 Report Date: 01/23/2024 14:44 At the request of: CRYS BEAN Procedure: XR hip RT 2V w/ pelvis PROCEDURE: XR hip RT 2V w/ pelvis COMPARISON: 12/19/2023 HISTORY: RIGHT HIP PAIN FINDINGS: BONES:Stable remote right subcapital hip fracture with internal fixation. No acute fracture, dislocation or mechanical failure. Moderate degenerative changes of the spine SOFT TISSUES:Negative. No visible soft tissue swelling. EFFUSION:None visible. OTHER: Negative. XR/XR hip RT 2V w/ pelvis IMPRESSION: Stable remote right hip fracture with internal fixation Electronically authenticated by: REBECCA MOORE Date: 01/23/2024 14:44
--- OUTSIDE RECORDS SUMMARY | 2024-01-23 12:18 | XMS_ITS | CCD ---
Author Organization [facility] Care Team Providers Care Claim Technician Name Role Phone JENNIFER, DR HAYWOOD Admitting [...] Unavailable Artis Rodriguez MD Primary Care Provider [phone] ARTIS RODRIGUEZ Attending Unavailable ARTIS RODRIGUEZ Attending Unavailable Allergies Allergy Classification Reported Allergen(s) Allergy Type Date of Onset Reaction(s) Facility (1 source) donepezil Drug Allergy [facility] (1 source) Penicillins Drug allergy (disorder) 3 [facility] (1 source) Sulfonamides (Antibiotic) Drug allergy (disorder) 3 [facility] (3 sources) Clarithromycin Allergy to substance 3 [facility] (3 sources) Penicillin G Drug Allergy 3 [facility] (3 sources) Sulfamethoxazole / Trimethoprim Drug Allergy 3 [facility] Medications Current Medications Medication Drug Class(es) [...] 09-29-2022 BASO # 0.0 103/ul Normal 0.0-0.1 [facility] Comment on above: Performed By: #### C BC #### [facility] [address] [place] [address] Dr. Naheed Hernandes Basophils/100 WBC (Bld) 0.7 % Normal 0.2-2.0 [facility] Comment on above: Performed By: #### C BC #### [facility] [address] [address] [address] Naheed Hernandes EO # 0.1 103/ul Normal 0.0-0.7 [facility] Comment on above: Performed By: #### C BC #### [facility] [address] [place] [address] Dr. Naheed Hernandes Eosinophils/100 WBC (Bld) 2.2 % Normal 0.9-7.0 [facility] Comment on above: Performed By: #### C BC #### [facility] [address] [place] [address] Dr. Naheed Hernandes Erythrocyte distribution width (RBC) [Ratio] 13.2 % Normal 11.0-15.0 [facility] Comment on above: Performed By: #### C BC #### [facility] [address] [place] [address] Dr. Naheed Hernandes Hematocrit (Bld) [Volume fraction] 43.2 % Normal 36.0-48.0 [facility] Comment on above: Performed By: #### C BC #### [facility] [address] [address] [address] Naheed Hernandes Hemoglobin (Bld) [Mass/Vol] 14.0 g/dL Normal 12.0-16.0 [facility] Comment on above: Performed By: #### C BC #### [facility] [address] [place] [address] Dr. Naheed Hernandes IG # 0.01 10e3/ul Normal 0.00-0.03 [facility] Comment on above: Performed By: #### C BC #### [facility] [address] [place] [address] Dr. Naheed Hernandes IG % 0.2 % Normal 0.0-0.5 [facility] Comment on above: Performed By: #### C BC #### [facility] [address] [place] [address] Dr. Naheed Hernandes LYMPH # 1.0 103/ul Critically low 1.2-3.8 [facility] Comment on above: Performed By: #### C BC #### [facility] [address] [place] [address] Dr. Naheed Hernandes Lymphocytes/100 WBC (Bld) 17.4 % Critically low 20.5-60.0 [facility] Comment on above: Performed By: #### C BC #### [facility] [address] [place] [address] Dr. Naheed Hernandes MANUAL DIFF REQ NO Normal [facility] Comment on above: Performed By: #### C BC #### [facility] [address] [place] [address] Dr. Naheed Hernandes MCH (RBC) [Entitic mass] 30.0 pg Normal 26.7-34.0 [facility] Comment on above: Performed By: #### C BC #### [facility] [address] [place] [address] Dr. Naheed Hernandes MCHC (RBC) [Mass/Vol] 32.4 g/dL Normal 29.9-35.2 [facility] Comment on above: Performed By: #### C BC #### [facility] [address] [address] [address] Naheed Hernandes MCV (RBC) [Entitic vol] 92.7 fL Normal 81.0-99.0 [facility] Comment on above: Performed By: #### C BC #### [facility] [address] [place] [address] Dr. Naheed Hernandes MONO # 0.5 103/ul Normal 0.3-0.8 [facility] Comment on above: Performed By: #### C BC #### [facility] [address] [place] [address] Dr. Naheed Hernandes Monocytes/100 WBC (Bld) 8.5 % Normal 1.7-12.0 [facility] Comment on above: Performed By: #### C BC #### [facility] [address] [place] [address] Dr. Naheed Hernandes NEUT # 4.2 103/ul Normal 1.4-6.5 [facility] Comment on above: Performed By: #### C BC #### [facility] [address] [place] [address] Dr. Naheed Hernandes Neutrophils/100 WBC (Bld) 71.0 % Normal 43.0-75.0 [facility] Comment on above: Performed By: #### C BC #### [facility] [address] [place] [address] Dr. Naheed Hernandes Platelet mean volume (Bld) [Entitic vol] 9.3 fL Critically low 9.5-13.5 [facility] Comment on above: Performed By: #### C BC #### [facility] [address] [place] [address] Dr. Naheed Hernandes PLT 242 103/ul Normal 150-450 [facility] Comment on above: Performed By: #### C BC #### [facility] [address] [place] [address] Dr. Naheed Hernandes RBC 4.66 106/ul Normal 4.20-5.40 [facility] Comment on above: Performed By: #### C BC #### [facility] [address] [place] [address] Dr. Naheed Hernandes WBC 5.9 103/ul Normal 4.0-11.0 [facility] Comment on above: Performed By: #### C BC #### [facility] [address] [place] [address] Dr. Naheed Hernandes FREE T3on 09-29-2022 FREE T3 2.15 pg/mlL Critically low 2.18-3.98 [facility] Comment on above: Performed By: #### L IPID, TSH, FT3, CMP #### [facility] [address] [place] [address] Dr. Naheed Hernandes FREE T4on 09-29-2022 Free T4 [Mass/Vol] 1.28 ng/dL Normal 0.76-1.46 [facility] Comment on above: Performed By: #### F T4, VITAD #### [facility] [address] [place] [address] Dr. Naheed Hernandes LIPID PROFILEon 09-29-2022 CHOL-HDL RATIO NORM SEE BELOW Normal [facility] Comment on above: Result Comment: 3.3 - 4.4 LOW RISK 4.4 - 7.1 AVERAGE RISK 7.1 - 11.0 MODERATE RISK >11.0 HIGH RISK Performed By: #### L IPID, TSH, FT3, CMP #### [facility] [address] [place] [address] Dr. Naheed Hernandes Cholesterol [Mass/Vol] 186 mg/dL Normal <=200 [facility] Comment on above: Performed By: #### L IPID, TSH, FT3, CMP #### [facility] [address] [place] [address] Dr. Naheed Hernandes Cholesterol in HDL [Mass/Vol] 70 mg/dL Critically high 40-60 [facility] Comment on above: Performed By: #### L IPID, TSH, FT3, CMP #### [facility] [address] [place] [address] Dr. Naheed Hernandes Cholesterol in LDL [Mass/Vol] 98.8 mg/dL Normal [facility] Comment on above: Performed By: #### L IPID, TSH, FT3, CMP #### [facility] [address] [address] [address] Naheed Hernandes Cholesterol.total/ Cholesterol in HDL [Mass ratio] 2.7 {ratio} Normal [facility] Comment on above: Performed By: #### L IPID, TSH, FT3, CMP #### [facility] [address] [address] [address] Naheed Hrenandes HDL NORMAL > or = 60 mg/dl - LO W CARDIOVASCULAR RISK <40 mg/dl - HIGH CARDIOVASCULAR RISK Normal [facility] Comment on above: Performed By: #### L IPID, TSH, FT3, CMP #### [facility] [address] [address] [address] Naheed Hernandes LDL CALC NORMAL SEE BELOW Normal [facility] Comment on above: Result Comment: <100 mg/dl OPTIMAL 100 - 129 mg/dl NEAR OR ABOVE OPTIMAL 130 - 159 mg/dl BORDERLINE HIGH 160 - 189 mg/dl HIGH >190 mg/dl VERY HIGH Performed By: #### L IPID, TSH, FT3, CMP #### [facility] [address] [address] [address] Naheed Hernandes Triglyceride [Mass/Vol] 86 mg/dL Normal <=150 [facility] Comment on above: Performed By: #### L IPID, TSH, FT3, CMP #### [facility] [address] [address] [address] Naheed Hernandes VLDL CALC 17.2 mg/dL Normal [facility] Comment on above: Performed By: #### L IPID, TSH, FT3, CMP #### [facility] [address] [address] [address] Naheed Hernandes PROF 14(COMP METB)on 023 Albumin [Mass/Vol] 3.7 g/dL Normal 3.4-5.0 [facility] Comment on above: Performed By: #### L IPID, TSH, FT3, CMP #### [facility] [address] [place] [address] Dr. Naheed Hernandes Albumin/Globulin [Mass ratio] 1.1 {ratio} Normal [facility] Comment on above: Performed By: #### L IPID, TSH, FT3, CMP #### [facility] [address] [place] [address] Dr. Naheed Hernandes ALP [Catalytic activity/Vol] 90 U/L Normal 46-116 [facility] Comment on above: Performed By: #### L IPID, TSH, FT3, CMP #### [facility] [address] [place] [address] Dr. Naheed Hernandes ALT [Catalytic activity/Vol] 14 U/L Normal 14-59 [facility] Comment on above: Performed By: #### L IPID, TSH, FT3, CMP #### [facility] [address] [place] [address] Dr. Naheed Hernandes Anion gap [Moles/Vol] 7.6 mmol/L Normal [facility] Comment on above: Performed By: #### L IPID, TSH, FT3, CMP #### [facility] [address] [place] [address] Dr. Naheed Hernandes AST [Catalytic activity/Vol] 25 U/L Normal 15-37 [facility] Comment on above: Performed By: #### L IPID, TSH, FT3, CMP #### [facility] [address] [place] [address] Dr. Naheed Hernandes Bilirubin [Mass/Vol] 1.4 mg/dL Critically high 0.2-1.0 [facility] Comment on above: Performed By: #### L IPID, TSH, FT3, CMP #### [facility] [address] [place] [address] Dr. Naheed Hernandes Calcium [Mass/Vol] 9.0 mg/dL Normal 8.5-10.1 [facility] Comment on above: Performed By: #### L IPID, TSH, FT3, CMP #### [facility] [address] [place] [address] Dr. Naheed Hernandes Chloride [Moles/Vol] 103 mmol/L Normal 98-107 [facility] Comment on above: Performed By: #### L IPID, TSH, FT3, CMP #### [facility] [address] [address] [address] Naheed Hernandes CO2 [Moles/Vol] 32.2 mmol/L Critically high 21.0-32.0 [facility] Comment on above: Performed By: #### L IPID, TSH, FT3, CMP #### [facility] [address] [address] [address] Naheed Hernandes Creatinine [Mass/Vol] 1.05 mg/dL Critically high 0.55-1.02 [facility] Comment on above: Performed By: #### L IPID, TSH, FT3, CMP #### [facility] [address] [place] [address] Dr. Naheed Hernandes EGFR-AF BAHAMIAN >60 Normal >=60 [facility] Comment on above: Performed By: #### L IPID, TSH, FT3, CMP #### [facility] [address] [place] [address] Dr. Naheed Hernandes EGFR-NON AF BAHAMIAN 50 mL/min/1.73m2 Critically low >=60 [facility] Comment on above: Performed By: #### L IPID, TSH, FT3, CMP #### [facility] [address] [place] [address] Dr. Naheed Hernandes Globulin (S) [Mass/Vol] 3.4 g/dL Normal [facility] Comment on above: Performed By: #### L IPID, TSH, FT3, CMP #### [facility] [address] [place] [address] Dr. Naheed Hernandes Glucose [Mass/Vol] 85 mg/dL Normal 74-106 [facility] Comment on above: Performed By: #### L IPID, TSH, FT3, CMP #### [facility] [address] [address] [address] Naheed Hernandes Potassium [Moles/Vol] 3.8 mmol/L Normal 3.5-5.1 [facility] Comment on above: Performed By: #### L IPID, TSH, FT3, CMP #### [facility] [address] [place] [address] Dr. Naheed Hernandes Protein [Mass/Vol] 7.1 g/dL Normal 6.4-8.2 [facility] Comment on above: Performed By: #### L IPID, TSH, FT3, CMP #### [facility] [address] [place] [address] Dr. Naheed Hernandes Sodium [Moles/Vol] 139 mmol/L Normal 136-145 [facility] Comment on above: Performed By: #### L IPID, TSH, FT3, CMP #### [facility] [address] [place] [address] Dr. Naehed Hernandes Urea nitrogen [Mass/Vol] 16.0 mg/dL Normal 7.0-18.0 [facility] Comment on above: Performed By: #### L IPID, TSH, FT3, CMP #### [facility] [address] [place] [address] Dr. Naheed Hernandes Urea nitrogen/Creatinin e [Mass ratio] 15.2 mg/mg Normal [facility] Comment on above: Performed By: #### L IPID, TSH, FT3, CMP #### [facility] [address] [place] [address] Dr. Naheed Hernandes TSHon 09-29-2022 TSH 1.283 uIU/mL Normal 0.358-3.740 [facility] Comment on above: Performed By: #### L IPID, TSH, FT3, CMP #### [facility] [address] [place] [address] Dr. Naheed Hernandes VITAMIN D 25 OHon 09-29-2022 VIT D 25-OH 78.0 ng/mL Normal [facility] Comment on above: Performed By: #### F T4, VITAD #### [facility] [address] [place] [address] Dr. Naheed Hernandes VIT D RANGES SEE BELOW Normal [facility] Comment on above: Result Comment: <20 ng/mL Vit D deficient 20 - <30 ng/mL Vit D insufficient 30 - 100 ng/mL Vit D sufficient >100 ng/mL Potential Toxicity Performed By: #### F T4, VITAD #### [facility] [address] [place] [address] Dr. Naheed Hernandes CBC AUTO DIFFon 11-20-2021 BASO # 0.0 103/ul Normal 0.0-0.1 [facility] Comment on above: Performed By: #### C BC #### [facility] [address] [address] [address] Naheed Hernandes Basophils/100 WBC (Bld) 0.6 % Normal 0.2-2.0 [facility] Comment on above: Performed By: #### C BC #### [facility] [address] [address] [address] Naheed Hernandes EO # 0.1 103/ul Normal 0.0-0.7 [facility] Comment on above: Performed By: #### C BC #### [facility] [address] [address] [address] Naheed Hernandes Eosinophils/100 WBC (Bld) 1.9 % Normal 0.9-7.0 [facility] Comment on above: Performed By: #### C BC #### [facility] [address] [address] [address] Naheed Hernandes Erythrocyte distribution width (RBC) [Ratio] 13.3 % Normal 11.0-15.0 [facility] Comment on above: Performed By: #### C BC #### [facility] [address] [address] [address] Naheed Hernandes Hematocrit (Bld) [Volume fraction] 43.7 % Normal 36.0-48.0 [facility] Comment on above: Performed By: #### C BC #### [facility] [address] [address] [address] Naheed Hernandes Hemoglobin (Bld) [Mass/Vol] 14.2 g/dL Normal 12.0-16.0 [facility] Comment on above: Performed By: #### C BC #### [facility] [address] [address] [address] Naheed Hernandes IG # 0.01 10e3/ul Normal 0.00-0.03 [facility] Comment on above: Performed By: #### C BC #### [facility] [address] [place] [address] Dr. Naheed Hernandes IG % 0.1 % Normal 0.0-0.5 [facility] Comment on above: Performed By: #### C BC #### [facility] [address] [place] [address] Dr. Naheed Hernandes LYMPH # 1.6 103/ul Normal 1.2-3.8 [facility] Comment on above: Performed By: #### C BC #### [facility] [address] [place] [address] Dr. Naheed Hernandes Lymphocytes/100 WBC (Bld) 23.1 % Normal 20.5-60.0 [facility] Comment on above: Performed By: #### C BC #### [facility] [address] [place] [address] Dr. Naheed Hernandes MANUAL DIFF REQ NO Normal [facility] Comment on above: Performed By: #### C BC #### [facility] [address] [place] [address] Dr. Naheed Hernandes MCH (RBC) [Entitic mass] 30.4 pg Normal 26.7-34.0 [facility] Comment on above: Performed By: #### C BC #### [facility] [address] [place] [address] Dr. Naheed Hernandes MCHC (RBC) [Mass/Vol] 32.5 g/dL Normal 29.9-35.2 [facility] Comment on above: Performed By: #### C BC #### [facility] [address] [place] [address] Dr. Naheed Hernandes MCV (RBC) [Entitic vol] 93.6 fL Normal 81.0-99.0 [facility] Comment on above: Performed By: #### C BC #### [facility] [address] [place] [address] Dr. Naheed Hernandes MONO # 0.7 103/ul Normal 0.3-0.8 [facility] Comment on above: Performed By: #### C BC #### [facility] [address] [place] [address] Dr. Naheed Hernandes Monocytes/100 WBC (Bld) 10.2 % Normal 1.7-12.0 [facility] Comment on above: Performed By: #### C BC #### [facility] [address] [place] [address] Dr. Naheed Hernandes NEUT # 4.4 103/ul Normal 1.4-6.5 [facility] Comment on above: Performed By: #### C BC #### [facility] [address] [place] [address] Dr. Naheed Hernandes Neutrophils/100 WBC (Bld) 64.1 % Normal 43.0-75.0 [facility] Comment on above: Performed By: #### C BC #### [facility] [address] [place] [address] Dr. Naheed Hernandes Platelet mean volume (Bld) [Entitic vol] 9.2 fL Critically low 9.5-13.5 [facility] Comment on above: Performed By: #### C BC #### [facility] [address] [place] [address] Dr. Naheed Hernandes PLT 243 103/ul Normal 150-450 [facility] Comment on above: Performed By: #### C BC #### [facility] [address] [place] [address] Dr. Naheed Hernandes RBC 4.67 106/ul Normal 4.20-5.40 [facility] Comment on above: Performed By: #### C BC #### [facility] [address] [place] [address] Dr. Naheed Hernandes WBC 6.9 103/ul Normal 4.0-11.0 [facility] Comment on above: Performed By: #### C BC #### [facility] [address] [place] [address] Dr. Naheed Hernandes LIPASEon 11-20-2021 Lipase [Catalytic activity/Vol] 138.0 U/L Normal 23.0-300.0 [facility] Comment on above: Performed By: #### L IPA, CMP #### [facility] [address] [place] [address] Dr. Naheed Hernandes PROF 14(COMP METB)on 022 Albumin [Mass/Vol] 3.9 g/dL Normal 3.5-5.0 [facility] Comment on above: Performed By: #### L IPA, CMP #### [facility] [address] [place] [address] Dr. Naheed Hernandes Albumin/Globulin [Mass ratio] 1.1 {ratio} Normal [facility] Comment on above: Performed By: #### L IPA, CMP #### [facility] [address] [place] [address] Dr. Naheed Hernandes ALP [Catalytic activity/Vol] 88 U/L Normal 38-126 [facility] Comment on above: Performed By: #### L IPA, CMP #### [facility] [address] [place] [address] Dr. Naheed Hernandes ALT [Catalytic activity/Vol] 13 U/L Normal 9-52 [facility] Comment on above: Performed By: #### L IPA, CMP #### [facility] [address] [place] [address] Dr. Naheed Hernandes Anion gap [Moles/Vol] 9.1 mmol/L Normal [facility] Comment on above: Performed By: #### L IPA, CMP #### [facility] [address] [place] [address] Dr. Naheed Hernandes AST [Catalytic activity/Vol] 20 U/L Normal 14-36 [facility] Comment on above: Performed By: #### L IPA, CMP #### [facility] [address] [address] [address] Naheed Hernandes Bilirubin [Mass/Vol] 1.0 mg/dL Normal 0.2-1.3 [facility] Comment on above: Performed By: #### L IPA, CMP #### [facility] [address] [place] [address] Dr. Naheed Hernandes Calcium [Mass/Vol] 8.7 mg/dL Normal 8.4-10.2 [facility] Comment on above: Performed By: #### L IPA, CMP #### [facility] [address] [place] [address] Dr. Naheed Hernandes Chloride [Moles/Vol] 103 mmol/L Normal 98-107 [facility] Comment on above: Performed By: #### L IPA, CMP #### [facility] [address] [address] [address] Naheed Hernandes CO2 [Moles/Vol] 32.6 mmol/L Critically high 22.0-30.0 [facility] Comment on above: Performed By: #### L IPA, CMP #### [facility] [address] [place] [address] Dr. Naheed Hernandes Creatinine [Mass/Vol] 1.34 mg/dL Critically high 0.52-1.04 [facility] Comment on above: Performed By: #### L IPA, CMP #### [facility] [address] [place] [address] Dr. Naheed Hernandes EGFR-AF BAHAMIAN 46 mL/min/1.73m2 Critically low >=60 [facility] Comment on above: Performed By: #### L IPA, CMP #### [facility] [address] [place] [address] Dr. Naheed Hernandes EGFR-NON AF BAHAMIAN 38 mL/min/1.73m2 Critically low >=60 [facility] Comment on above: Performed By: #### L IPA, CMP #### [facility] [address] [place] [address] Dr. Naheed Hernandes Globulin (S) [Mass/Vol] 3.7 g/dL Normal [facility] Comment on above: Performed By: #### L IPA, CMP #### [facility] [address] [place] [address] Dr. Naheed Hernandes Glucose [Mass/Vol] 109 mg/dL Critically high 74-106 [facility] Comment on above: Performed By: #### L IPA, CMP #### [facility] [address] [place] [address] Dr. Naheed Hernandes Potassium [Moles/Vol] 3.7 mmol/L Normal 3.4-5.0 [facility] Comment on above: Performed By: #### L IPA, CMP #### [facility] [address] [address] [address] Naheed Hernandes Protein [Mass/Vol] 7.6 g/dL Normal 6.1-8.2 [facility] Comment on above: Performed By: #### L IPA, CMP #### [facility] [address] [address] [address] Naheed Hernandes Sodium [Moles/Vol] 141 mmol/L Normal 137-145 [facility] Comment on above: Performed By: #### L IPA, CMP #### [facility] [address] [address] [address] Naheed Hernandes Urea nitrogen [Mass/Vol] 20.0 mg/dL Critically high 7.0-17.0 [facility] Comment on above: Performed By: #### L IPA, CMP #### [facility] [address] [address] [address] Naheed Hernandes Urea nitrogen/Creatinin e [Mass ratio] 14.9 mg/mg Normal [facility] Comment on above: Performed By: #### L IPA, CMP #### [facility] [address] [address] [address] Naheed Hernandes COVID-19 [facility] 06-05-2021 SARS-CoV-2 (COVID-19) RNA ANUP+probe Ql (Unsp spec) Negative Normal Negative [facility] Comment on above: Order Comment: Healt hcare Worker?: N Result Comment: Testing for SARS-CoV-2 by RT-PCR This test was developed and its performance characteristics determined by [employer]) and validated at the [facility]. This test has not been FDA cleared [...] is terminated or revoked sooner. PERFORMED BY: [place] [address] PATHOLOGIST STATION ENGINEER PETAR ARTEAGA M.D. Performed By: #### C OVID 19 [facility] [place] #### [address] Vital Signs Date Time Vital Sign Value Performing Clinician Faci lity 10-21-2023 10:26-0500 Body mass index (BMI) [Ratio] 18.78 kg/m2 Artis Rodriguez MD Work Phone: [facility] Healthcare 10-21-2023 10:26-0500 Body weight 48.08 kg Artis Rodriguez MD Work Phone: [facility] Healthcare Encounters Encounter Date Encounter Type Care Provider Facility Start: 10-31-2023 Telephone encounter December Maryuri ARGUETA [facility] Comment on above: Medication Question Start: 10-31-2023 End: 10-31-2023 ambulatory ARTIS RODRIGUEZ Not Available Start: 10-21-2023 End: 10-31-2023 Office outpatient visit 15 minutes Artis Rodriguez MD Work Phone: [facility] Comment on above: 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); DDD (degenerative disc disease), lumbar; BMI less than 19,adult; Delusions (CMS/HCC); Moderate protein-calorie malnutrition (CMS/HCC) Start: 08-22-2023 End: 08-22-2023 ambulatory ARTIS RODRIGUEZ Not Available Start: 01-21-2023 ambulatory JUDY Padgett FREYA Facility: [facility] [place] Start: 11-26-2022 ambulatory JUDY Padgett FREYA Facility: [facility] [place] Start: 09-29-2022 End: 09-30-[address] ALMA ROSA OBREGON Facility:[facility] Start: 11-20-2021 End: 11-21-[address] ARTIS RODRIGUEZ Facility:[facility] Plan of Treatment Date Care Activity Detail Author Start: 08-22-2024 Medicare Annual Well ness (AWV) Medicare Annual Wellness (AWV) [facility] Start: 06-20-2018 Pneumococcal Vaccine : 65+ Years (2 - PCV) Pneumococcal Vaccine: 65+ Years (2 - PCV) [facility] Immunizations Immunization Date Immunization Notes Care Provider Boy beckman 07-16-2023 SARS-COV-2 (COVID-19 ) vaccine, mRNA, spike protein, LNP, PF, 50 mcg/0.5 mL December [facility] 07-02-2023 Influenza, Seasonal, Quadrivalent, Adjuvanted [facility] 07-09-2022 Influenza, High-dose Seasonal, Quadrivalent, Preservative Free [facility] 07-18-2020 Influenza, High-dose Seasonal, Quadrivalent, Preservative Free [facility] 07-13-2019 influenza, high dose seasonal, preservative-free [facility] 06-20-2017 influenza, injectabl e, quadrivalent, preservative free [facility] 06-20-2017 pneumococcal polysac charide vaccine, 23 valent Marlyn [facility] 08-03-2016 influenza, injectabl e, quadrivalent, preservative free [facility] Payers Date Payer Category Payer Medicare [id number] 2019 Unknown [place] [employer] [place] [id number] 2019-Present [address] [place] [id number] 2007 Medicare MEDICARE MEDICAR E PART B [id number] 2007-[place] [address] Medicare [id number] 1959 Medicare [id number] 1959 Unknown [id number] 1942 Unknown [id number] 1942 Unknown [id number] 1942 Unknown [id number] 1942 Unknown [id number] 1942 Unknown [id number] 9 1942 Unknown [id number] 9 Social History Date Type Detail Facility Start: 05-03-2023 Tobacco smoking stat [facility] Ex-smoker [facility] History of tobacco use [...] section and content) DATE CREATED AUTHOR 10/13/2021 [facility] DATE CREATED AUTHOR AUTHOR'S ORGANIZ ATION 10/02/2022 [facility] DATE CREATED AUTHOR AUTHOR'S ORGANIZ ATION [facility]20[facility] DATE CREATED AUTHOR AUTHOR'S ORGANIZ ATION 11/01/2023 [facility] EPIC Reason for Visit (unrecogniz ed section and content) Reason Onset Date Comments Medication Question 10/31/2023 Care Teams (unrecognized sec tion and content) Claim Technician Relationship Specialty Start Date End Date Artis Rodriguez MD [address] [place] [address] PCP - General Family Medicine 05/03/23 Claim Technician Relationship Specialty Start Date End Date Artis Rodriguez MD [address] [place] [address] PCP - General Family Medicine 05/03/23 FOR [...] BASED ON THE PRIMARY CLINICAL RECORDS. [facility] [employer] [facility]. provides no warranty or guarantee of the accuracy or completeness of information in this document.
== END 2024-01-23 12:00 | disposition home or self-care (01) ==
LOC: EC 11:59
PROVIDERS: PCP Family Medicine; Visit Provider Orthopaedic Surgery
DX: S72.001D Fracture of unspecified part of neck of right femur, subsequent encounter for closed fracture with routine healing (principal); S42.291D Other displaced fracture of upper end of right humerus, subsequent encounter for fracture with routine healing
CPT/HCPCS: 73030; 73502